=== PATIENT | male | born 1955 | race Caucasian/White ===

== ENCOUNTER → 2018-01-24 11:32 | Outpatient (CLI) | payer OTHER, SELFPAY ==
--- NOTE | 2018-01-24 11:37 | XR_ITS ---
XR shoulder LT min 2V HISTORY: ITS.REASON: LEFT SHOULDER PAIN ORDERING PHYSICIAN: Feliciano Scott MD PATIENT AGE: 62 years Comparison: None FINDINGS: There are mild osteoarthritic changes of the glenohumeral joint. The acromioclavicular joint has an unremarkable appearance. There is some mild hypertrophy along the undersurface of the acromium which may result in impingement symptomatology with mild subacromial stenosis There is deformity of the scapula which is suggestive of an old fracture. No lytic or blastic change. No acute fracture or dislocation. There is some sclerosis involving the proximal aspect of the humeral shaft nonspecific possibly related to an old bone infarction. There are some hypertrophic change along the humeral neck. IMPRESSION: 1. No acute finding. 2. Mild osteoarthritic change of the glenohumeral joint with hypertrophy along the undersurface of the acromion with mild subacromial stenosis. 3. Old scapular fracture
== END ==
PROVIDERS: PCP Family Medicine; Visit Provider Family Medicine
DX: M25.512 Pain in left shoulder (principal)
CPT/HCPCS: 73030

== ENCOUNTER 2018-02-20 17:00 | Outpatient (RCR) | payer OTHER, SELFPAY ==
--- NOTE | 2018-02-06 17:45 | HMH.PTOPEV ---
PT Outpatient Evaluation Rehab PT Outpatient Evaluation Start: 02/06/18 17:30 Freq: Status: Active Protocol: Document 02/06/18 17:33 KARELSAMUEL (Rec: 02/06/18 17:45 ROLY [id number]) Electronically Signed By Joe Avalos, PT 02/06/18 17:33 Outpatient Therapy Subjective History Subjective History This is the intial OP PT evaluation for Lambert Mancia. Pt is a 62 y/o male referred to PT for c/o L shoulder pain. 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 Pt reports he saw ortho MD had injection in shoulder. Pt rpeorts decreased pain s/p injxn. Chief Complaint Pain Symptom Type Ache Sharp Symptoms Relieved By Rest/Positioning Symptoms Aggravated By Physical Activity Lifting Prior Functional Limitations None Current Functional Limitations Reaching Lifting Sleeping Recreation Activity Symptom Description Intermittent Level of pain today (0-10) 3 Pain scale - at its best (0-10) 0 Pain scale - at its worst (0-10) 8 Shoulder/Elbow Eval Shoulder Objective Measurements Palpation Tenderness tenderness shoulder exam standard left Shoulder Palpation Findings Tenderness Shoulder Palpation Overall Comment TTP ant RTC insertion Shoulder ROM Bilateral full ROM shoulder exam standard bilateral Shoulder MMT Anterior Deltoid Strength Grade 5 Normal Shoulder Abduction Strength Grade 4 Good Shoulder External Rotation Strength 4 Good Grade Shoulder Internal Rotation Strength 5 Normal Grade Supraspinatus Strength Grade 4 Good Shoulder Special Tests impingement sign present shoulder exam left standard Shoulder Cross-Over Impingement Test Positive Left Shoulder Empty Can (Supraspinatus) Test Positive Left Shoulder Ash-Ariel Impingement Positive Left Test Shoulder Neer Impingement Test Positive Left Elbow Objective Measurements Outpatient Therapy Assessment Impairments Problems/Impairmments Palpation Tenderness Impaired Strength Impaired Lifting Impaired Recreational
== END 2018-02-20 17:05 | disposition home or self-care (01) ==
LOC: PT 17:00
PROVIDERS: Visit Provider Orthopaedic Surgery
DX: M25.512 Pain in left shoulder (principal)
CPT/HCPCS: 97110; 97163

== ENCOUNTER → 2018-07-26 14:51 | Outpatient (CLI) | payer OTHER, SELFPAY ==
[2018-07-26 17:17] LABS: Anion Gap 11.6 mEq/L (5-15); Blood Urea Nitrogen 22 mg/dL (7-18); Calcium 9.7 mg/dL (8.5-10.1); Carbon Dioxide 29 mmol/L (21.0-32.0); Chloride 105 mmol/L (98-107); Creatinine,Serum 1.06 mg/dL (0.70-1.30); Digoxin 0.56 ng/mL (0.90-2.00); Estimated Glomerular Filt Rate 70 ml/min (>60); GFR (African American) 85 ML/MIN (>60); Glucose 97 mg/dL (74-106); Potassium 4.6 mmoL/L (3.5-5.1); Sodium 141 mmol/L (136-145)
== END ==
PROVIDERS: PCP Family Medicine; Visit Provider Nurse Practitioner Family
DX: I48.0 Paroxysmal atrial fibrillation (principal); I10 Essential (primary) hypertension; G47.33 Obstructive sleep apnea (adult) (pediatric)
CPT/HCPCS: 36415; 80048; 80162

== ENCOUNTER → 2019-02-22 17:03 | Outpatient (CLI) | payer OTHER, SELFPAY ==
[2019-02-22 21:29] LABS: Alanine Aminotransferase 37 U/L (12-78); Albumin/Globulin Ratio 1.4 (1.1-1.8); Alkaline Phosphatase 54 U/L (46-116); Aspartate Amino Transferase 29 U/L (15-37); Bilirubin,Total 0.3 mg/dL (0.2-1.0); Blood Urea Nitrogen 21 mg/dL (7-18); Calcium 8.9 mg/dL (8.5-10.1); Carbon Dioxide 26 mmol/L (21.0-32.0); Chloride 102 mmol/L (98-107); Chol/HDL Ratio 4.2 (1-3.5); Cholesterol 188 mg/dL (140-200); Creatinine,Serum 1.04 mg/dL (0.70-1.30); Estimated Glomerular Filt Rate 72 ml/min (>60); Free T4 (Free Thyroxine) 0.92 ng/dl (0.76-1.46); GFR (African American) 87 ML/MIN (>60); Globulin 2.9 gm/dl (1.3-3.2); Glucose 73 mg/dL (74-106); HDL Cholesterol 45 mg/dL (27-67); LDL Cholesterol 96 mg/dL (0-130); Sodium 140 mmol/L (136-145); Thyroid Stimulating Hormone 4.84 uIU/ml (0.358-3.740); Total Protein,Serum 6.9 gm/dL (6.4-8.2); Triglycerides 233 mg/dL (30-200); Uric Acid 5.9 mg/dL (2.6-7.2); VLDL Cholesterol 47 mg/dL (0-40)
[2019-02-22 21:41] LABS: Creatinine,Urine Random 177 mg/dL (20-320)
[2019-02-24 10:19] LABS: Microalbumin, Urine 4.7 ug/mL (Not Estab.); Vitamin D 25 Hydroxy 90.7 ng/mL (30.0-100.0)
== END ==
PROVIDERS: Visit Provider Family Medicine
DX: M10.9 Gout, unspecified (principal); E03.9 Hypothyroidism, unspecified; E78.5 Hyperlipidemia, unspecified; I10 Essential (primary) hypertension; Z86.39 Personal history of other endocrine, nutritional and metabolic disease
CPT/HCPCS: 36415; 80053; 80061; 82043; 82570; 82652; 84439; 84443; 84550

== ENCOUNTER → 2019-06-04 08:55 | Outpatient (CLI) | payer OTHER, SELFPAY ==
--- NOTE | 2019-06-04 08:59 | XR_ITS ---
PROCEDURE: XR KNEE LT 4V CLINICAL INDICATION: left knee pain COMPARISON: No exams were available for comparison FINDINGS: No fracture or dislocation. No lytic or blastic change. There is normal mineralization. There are moderate to severe osteoarthritic changes of the medial compartment and moderate osteoarthritis of the patellofemoral joint. Small suprapatellar effusion is suspected. No acute fracture or dislocation. Other findings:None. IMPRESSION: Moderate to severe osteoarthritis of the medial compartment and patellofemoral joint Dictated by: Vincent Oconnor MD 06/04/2019 11:43 Electronically signed by Vincent Oconnor MD in [place] 06/04/2019 11:43
== END ==
PROVIDERS: PCP Family Medicine; Visit Provider Orthopaedic Surgery
DX: M25.562 Pain in left knee (principal)
CPT/HCPCS: 73564

== ENCOUNTER → 2019-08-24 09:16 | Outpatient (CLI) | payer OTHER, SELFPAY ==
--- NOTE | 2019-08-24 09:20 | XR_ITS ---
PROCEDURE: XR LUMBAR SPINE MIN 4V CLINICAL INDICATION: LOW BACK PAIN COMPARISON: CXR CHEST(2 VIEWS-NOT PORTABLE) from 12/30/2015 FINDINGS: There is normal alignment. Degenerative disc disease is present from L1-S1 most severe at L3-L4 and L4-5. There is 9 mm anterolisthesis of L4 on L5. There is sclerosis of the inferior aspect of the SI joints on both sides. Mild facet arthritic changes are present at L5-S1. No fracture or dislocation. IMPRESSION: Multilevel lumbar spondylosis as described above with arthritic changes of the SI joints Dictated by: Vincent Oconnor MD 08/24/2019 14:43 Electronically signed by Vincent Oconnor MD in [place] 08/24/2019 14:43
== END ==
PROVIDERS: PCP Family Medicine; Visit Provider Family Medicine
DX: M54.5 Low back pain (principal)
CPT/HCPCS: 72110

== ENCOUNTER → 2019-08-31 10:21 | Outpatient (CLI) | payer OTHER, SELFPAY ==
--- NOTE | 2019-08-31 10:30 | MR_ITS ---
PROCEDURE: MR LUMBAR SPINE WO CON CLINICAL INDICATION: ACUTE LEFT SIDED LBP Low back pain, left hip and leg pain numbness and tingling COMPARISON: XR LUMBAR SPINE MIN 4V from 08/24/2019 TECHNIQUE: Standard multiplanar multiecho sequences are performed without contrast. 3-D MIP and myelographic images are also rendered and reviewed FINDINGS: There is normal alignment. The spinal cord ends at the T12-L1 level. L1-L2: Unremarkable. L2-L3: Minimal bulging disc with mild facet and ligamentum hypertrophy L3-L4: Degenerate disc disease with mild bulging disc and facet and ligamentum hypertrophy with moderate bilateral foraminal narrowing L4-5: Degenerate disc disease with bulging disc along with moderate to severe facet and ligamentum hypertrophy and 6 mm anterolisthesis of L4. There is borderline canal stenosis at this level with moderate right and severe left foraminal narrowing. There is some impingement upon the exiting left L4 nerve root from the severe narrowing at the foramen. L5-S1: Mild degenerative disc disease with bulging disc slightly eccentric toward the left with moderate facet and ligamentum hypertrophy. There is mild left lateral recess narrowing and there is moderate bilateral foraminal narrowing. No extruded herniated disc is evident IMPRESSION: 1. L3-L4: Degenerate disc disease with mild bulging disc and facet and ligamentum hypertrophy with moderate bilateral foraminal narrowing 2. L4-5: Degenerate disc disease with bulging disc along with moderate to severe facet and ligamentum hypertrophy and 6 mm anterolisthesis of L4. There is borderline canal stenosis at this level with moderate right and severe left foraminal narrowing. There is some impingement upon the exiting left L4 nerve root from the severe narrowing at the foramen. 3. L5-S1: Mild degenerative disc disease with bulging disc slightly eccentric toward the left with moderate facet and ligamentum hypertrophy. There is mild left lateral recess narrowing and there is moderate bilateral foraminal narrowing. 4. No extruded herniated disc is evident Dictated by: Vincent Oconnor MD 09/01/2019 08:32 Electronically signed by Vincent Oconnor MD in [place] 09/01/2019 08:32
== END ==
PROVIDERS: PCP Family Medicine; Visit Provider Family Medicine
DX: M54.42 Lumbago with sciatica, left side (principal); M51.36 Other intervertebral disc degeneration, lumbar region; M47.816 Spondylosis without myelopathy or radiculopathy, lumbar region
CPT/HCPCS: 72148; 76376

== ENCOUNTER → 2019-09-20 09:48 | Outpatient (POV) | payer SELFPAY ==
[2019-09-20 09:54] VITALS: BP 142/88; PULSE 85; RESP 18; TEMP 36.9; O2SAT 98; BMI 37.3
--- NOTE | 2019-09-20 10:39 | HMH.PMCON ---
Assessment and Plan (1) Degenerative joint disease (DJD) of lumbar spine Current visit: Yes Status: Chronic Category: Medical Code(s): M47.816 - Spondylosis without myelopathy or radiculopathy, lumbar region (2) Lumbar radiculopathy Current visit: Yes Status: Chronic Category: Medical Code(s): M54.16 - Radiculopathy, lumbar region (3) Facet arthropathy Current visit: Yes Status: Chronic Category: Medical Code(s): M47.819 - Spondylosis without myelopathy or radiculopathy, site unspecified (4) Spinal stenosis Current visit: Yes Status: Chronic Category: Medical Code(s): M48.00 - Spinal stenosis, site unspecified - Assessment and plan all Dx Assessment and Plan for all problems:: Patient I did have a discussion concerning injective therapy. He does want to proceed with a lumbar epidural steroid injection at L4-L5. He has been educated regarding the injection. The patient and I specifically discussed risk factors for COVID19. These risks include, but are not limited to age greater than 60, heart or lung disease, diabetes, immunosuppression, and travel. We also discussed NSAIDs may worsen COVID19 infection or symptoms. Patient should not use NSAIDs to treat COVID19 signs or symptoms. Patient was also informed that any type of corticosteroid of any form (oral or injection) will decrease the patient's immune system response and may increase the likelihood of COVID19 infection and symptoms. The risks and benefits of the injection, he would like to proceed. We will also start the patient with physical therapy. We will start the patient on Zanaflex 2 mg 1 tablet p.o. twice daily until his injection. We will see him back in the clinic after his injection to reassess his symptoms. The patient is on Xarelto which is prescribed by Dr. Scott for atrial fibrillation. We will consult with Dr. Scott to see if he is able to hold his injective therapy for the injection. Patient has been instructed to contact the clinic if he has any concerns before his next appointment. Dr. Blanco has reviewed this note and agrees with this plan of care. This note was dictated using voice recognition software and make contain errors or omissions. HPI - Data of Consult Patient: new to practice Consult date: 09/20/19 Requesting Physician: Melani Ferreira APRN Primary Care Provider: Feliciano Scott MD - Consult Narrative Reason for consult: Low back pain, bilateral leg pain History of present illness: Mr. Mancia is a 63 year old male who presents today for consultation for low back pain with bilateral lower extremity pain. Patient says that he was laid off from his job in February 2019 and says that he is currently under his 's insurance. He says unfortunately, his is also recently laid off from the hospital. He says that they are in limbo and in the next couple months they will be able to get Medicare. For now, however, they are using over insurance through his 's insurance. Patient says that he has had the pain ongoing for many years, however, over the last 3 to 4 months he says that he has had excruciating pain. His pain is worse with standing and walking. He says any outdoor activity causes worsening pain. Patient says he is unable to do previous normal activities such as mowing his grass and edging. He says that the pain is so severe that he cannot tolerate any type of movement after trying to mow grass. He does rate his pain an 8 out of 10 today. He has not tried physical therapy. He says he has tried anti-inflammatories but has not gotten any relief. He does use ice and heat therapies. Ice does seem to give him more relief. CC: Melani Ferreira APRN [facility] History I have reviewed the patient's past medical history: Yes Medical History: Reports:: Asthma, Atrial Fibrillation, Hyperlipidemia, Hypertension Denies:: Cancer, Diabetes Mellitus Type 1, Diabetes Mellitus Type 2, MRSA *Have you ever receive
== END ==
PROVIDERS: PCP Family Medicine; Visit Provider Clinical Nurse Specialist Family Health
DX: M47.896 Other spondylosis, lumbar region (principal); M54.16 Radiculopathy, lumbar region; M48.00 Spinal stenosis, site unspecified
CPT/HCPCS: 99202

== ENCOUNTER 2019-10-12 12:50 | Day surgery (SDC) | payer MEDICAID, SELFPAY ==
[2019-10-12 13:07] VITALS: BP 134/80; PULSE 100; RESP 18; TEMP 36.9; O2SAT 95; BMI 39.5
[2019-10-12 13:28] VITALS: BP 140/78; PULSE 85; RESP 18; O2SAT 98
[2019-10-12 13:29] VITALS: BP 152/85; PULSE 78; RESP 18; O2SAT 98
--- NOTE | 2019-10-12 13:31 | HMH.PMPROC ---
- Procedure Date: 10/12/19 Time: 13:32 Anesthesiologist:: Sonny Blanco MD Complications:: None Pre-procedure Diagnosis:: Degenerative disc disease of lumbar spine with lumbar radiculopathy symptoms Post-procedure Diagnosis:: Same Indications for Procedure:: This patient is a pleasant 63-year-old white male who we are treating for low back pain with lumbar radiculopathy symptoms. We are planning on doing lumbar epidural steroid injection under fluoroscopy today. He is been off of his Xarelto. Most of his pain is in low back both hips and left leg. Procedure Details:: Lumbar epidural steroid injection under fluoroscopy Informed consent was obtained and the risk and benefits of the procedure was explained to the patient. The patient was taken to the procedure room. The patient was placed prone on the procedure table. The patient was prepped and draped in sterile fashion. C-arm fluoroscopy was used to view the lumbar spine. Skin and subcutaneous tissues were anesthetized using lidocaine. I placed an 18-gauge epidural needle and advanced into the L4-L5 interspace using fluoroscopic guidance and [id number] to air. After confirmation of needle placement in the epidural space with dye I injected 2 mL of lidocaine 1.5% with Depo-Medrol 80 mg. Patient tolerated the procedure well with no complications. Plan and Disposition:: We will follow-up with him in 2 weeks. Will reevaluate symptoms at that time.
[2019-10-12 13:55] VITALS: BP 138/80; PULSE 104; RESP 18; O2SAT 95
== END 2019-10-12 13:55 | disposition home or self-care (01) ==
LOC: SC.PAINP 12:52
PROVIDERS: PCP Family Medicine; Visit Provider Anesthesiology
DX: M51.16 Intervertebral disc disorders with radiculopathy, lumbar region (principal); I10 Essential (primary) hypertension; E78.5 Hyperlipidemia, unspecified; I48.91 Unspecified atrial fibrillation; M10.9 Gout, unspecified; G47.33 Obstructive sleep apnea (adult) (pediatric); Z79.899 Other long term (current) drug therapy
CPT/HCPCS: 62323; J1040; Q9966

== ENCOUNTER → 2019-11-01 12:59 | Outpatient (POV) | payer MEDICAID, SELFPAY ==
[2019-11-01 13:20] VITALS: BP 142/78; PULSE 85; RESP 18; TEMP 36.6; O2SAT 98; BMI 37.3
--- NOTE | 2019-11-01 13:20 | HMH.PAINSOAP ---
[facility] Pain Management SOAP Note Subjective:: Patient is a pleasant 64-year-old white male who presents today for follow-up after a lumbar epidural steroid injection. He has been treated for low back pain with lumbar radiculopathy symptoms. Patient says he is having pain in his low back and bilateral hips as well as his left leg. He says that he did get about 60% relief following his injection. He is continuing with physical therapy at this time. He rates his pain 4 out of 10. Patient is on Xarelto. He says that his pain is returning. He says it is worse as the evening goes on. He says he is fine in the morning time, however, by the evening his pain is severe. He was bridged with Lovenox at his last injection. Patient says he thought he was supposed to hold his Xarelto immediately after his visit and the day he was scheduled for the injection. Unfortunately, he held his Xarelto up until the injection. Patient I had a long discussion concerning the amount of time he does need to hold the Xarelto. Review of Systems General: No recent weight changes, no fever, no sleep disturbances Respiratory: No cough, no shortness of air, no recurring pulmonary infections Cardiovascular/peripheral vascular: No chest pain, no palpitations, no edema, no shortness of breath Gastrointestinal: No new onset incontinence, normal bowel movements reported Genitourinary: No new onset incontinence Musculoskeletal: Low back pain lateral hip pain, left leg pain Psychiatric: Normal mood/affect Neurological: [Denies weakness in extremities], [denies balance issues] Objective:: Physical exam General: Alert and oriented x3, no acute distress, pleasant and cooperative, [on room air] Lungs: Respirations even and unlabored, symmetrical chest expansion Eyes: PERRL Musculoskeletal: Flexion and extension of lumbar spine somewhat guarded secondary to pain, deep tendon reflexes normal, strength in upper and lower extremities [5/5], [abnormal gait noted] Neurological: Speech clear, furniture crater equal, no gross sensory deficit Assessment:: Degenerative disc disease lumbar spine with lumbar radiculopathy symptoms Plan:: We will schedule the patient for repeat lumbar epidural steroid injection at L4-L5. He did get relief with his initial injection, up to 60%. He was more functional. He is continue with physical therapy. He is not on any anti-inflammatories due to his anticoagulation therapy. He does understand he will need to hold his Xarelto. Patient has asked that his Lovenox be called into [facility] pharmacy in [place]. He will follow-up with us after his injection to reassess his symptoms. He has been instructed to contact clinic if he has any concerns before his next appointment. The patient and I specifically discussed risk factors for COVID19. These risks include, but are not limited to age greater than 60, heart or lung disease, diabetes, immunosuppression, and travel. We also discussed NSAIDs may worsen COVID19 infection or symptoms. Patient should not use NSAIDs to treat COVID19 signs or symptoms. Patient was also informed that any type of corticosteroid of any form (oral or injection) will decrease the patient's immune system response and may increase the likelihood of COVID19 infection [address] symptoms[address] Blanco has reviewed this note and agrees with this plan of care. This note was dictated using voice recognition software and make contain errors or omissions. [facility] History I have reviewed the patient's past medical history: Yes Medical History: Reports:: Asthma, Atrial Fibrillation, Hyperlipidemia, Hypertension Denies:: Cancer, Diabetes Mellitus Type 1, Diabetes Mellitus Type 2, MRSA, Seizures *Have you ever received a pneumonia vaccine?: No *Have you received a flu vaccine this season?: No Other Medical History: Reports: Arthritis Other Surgeries: Yes: Colonoscopy Amputation: No - *Social History Smoking Status: Never smoker Alcohol Intake: never
== END ==
PROVIDERS: PCP Family Medicine; Visit Provider Clinical Nurse Specialist Family Health
DX: M51.16 Intervertebral disc disorders with radiculopathy, lumbar region (principal)
CPT/HCPCS: 99212

== ENCOUNTER 2019-11-09 13:07 | Day surgery (SDC) | payer MEDICAID, SELFPAY ==
[2019-11-09 13:20] VITALS: BP 115/80; PULSE 98; RESP 18; TEMP 36.6; O2SAT 95; BMI 37.3
[2019-11-09 13:40] VITALS: BP 105/55; PULSE 93; RESP 18; O2SAT 99
[2019-11-09 13:44] VITALS: BP 110/74; PULSE 90; RESP 18; O2SAT 96
--- NOTE | 2019-11-09 13:50 | HMH.PMPROC ---
- Procedure Date: 11/09/19 Time: 13:50 Anesthesiologist:: Sonny Blanco MD Complications:: None Pre-procedure Diagnosis:: Degenerative disc disease of lumbar spine with lumbar radiculopathy symptoms Post-procedure Diagnosis:: Same Indications for Procedure:: This patient is a pleasant 64-year-old white male who we are treating for low back pain with lumbar radiculopathy symptoms. He did very well with his last lumbar epidural steroid injection. He was 60 to 70% better. He presents for repeat lumbar epidural steroid injection under fluoroscopy today. He has been off of his Xarelto since Tuesday. He has been bridged with Lovenox. He has been off the Lovenox for 24 hours. Procedure Details:: Lumbar epidural steroid injection under fluoroscopy Informed consent was obtained and the risk and benefits of the procedure was explained to the patient. The patient was taken to the procedure room. The patient was placed prone on the procedure table. The patient was prepped and draped in sterile fashion. C-arm fluoroscopy was used to view the lumbar spine. Skin and subcutaneous tissues were anesthetized using lidocaine. I placed an 18-gauge epidural needle and advanced into the L4-L5 interspace using fluoroscopic guidance and [id number] to air. After confirmation of needle placement in the epidural space with dye I injected 2 mL of lidocaine 1.5% with Depo-Medrol 80 mg. Patient tolerated the procedure well with no complications. Plan and Disposition:: We will follow-up with him in 2 weeks. Will reevaluate symptoms at that time. He is to restart his Xarelto.
[2019-11-09 13:52] VITALS: BP 108/65; PULSE 100; RESP 18; O2SAT 95
== END 2019-11-09 13:53 | disposition home or self-care (01) ==
LOC: SC.PAINP 13:07
PROVIDERS: PCP Family Medicine; Visit Provider Anesthesiology
DX: M51.16 Intervertebral disc disorders with radiculopathy, lumbar region (principal); I10 Essential (primary) hypertension; E03.9 Hypothyroidism, unspecified; I48.91 Unspecified atrial fibrillation; M10.9 Gout, unspecified; Z79.899 Other long term (current) drug therapy
CPT/HCPCS: 62323; J1040; Q9966

== ENCOUNTER 2019-11-27 08:00 | Outpatient (RCR) | payer MEDICAID, MEDICARE, OTHER, SELFPAY ==
--- NOTE | 2019-09-26 11:28 | HMH.PTOPEV ---
PT Outpatient Evaluation Rehab PT Outpatient Evaluation Start: 09/26/19 10:00 Freq: Status: Active Protocol: Document 09/26/19 11:08 GREG (Rec: 09/26/19 11:28 PHOROBERT [id number]) Electronically Signed By Gerson Taylor, PT 09/26/19 11:08 Outpatient Therapy Subjective History Subjective History Pt is 63 yowm who presents with c/o ~ 4 mo hx of LBP with intermittent symptoms in B LE to lateral calf distally. 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 He had MRI performed which shows DDD, L2/3-L5/S1 disc bulges, L4 on L5 ant listhesis 6 mm. He reports pain is worse with activity for any prolonged period of time, but much worse with yard work. PMH : A-fib, HTN, HL Chief Complaint Pain Symptom Type Ache,Sharp,Tingling,Shooting Symptoms Relieved By Rest/Positioning,Prescription Meds Symptoms Aggravated By Physical Activity Prior Functional Limitations None Current Functional Limitations Sleeping,Recreation Activity, Walking,Bending/Stooping Symptom Description Intermittent,Activity Dependent Level of pain today (0-10) 4 Pain scale - at its worst (0-10) 8 Lumbopelvic Eval Palapation tenderness left lumbar spinal tenderness Yes paraspinal tenderness Yes Lumbar/Sacral Palpation Findings Tenderness Lumbar/Sacral Palpation Overall Comment post L hip Accessory Movement L-spine Vertebrae Accessory Movements Central P/A [place] that Elicit Symptoms L4 bilateral L5 bilateral S1 bilateral Range of Motion Lumbar Spine Active Flexion Range of 0-60 Motion (degrees) Lumbar Spine Active Extension Range of 0-10 Motion (degrees) Left Lumbar Spine Lateral Flexion Active 0-10 Range of Motion (degrees) Right Lumbar Spine Lateral Flexion 0-10 Active Range of Motion (degrees) Manual Muscle Test Bilateral Knee Extension Strength Grade 5 Normal Knee Flexion Strength Grade 5 Normal Hip Flexion Strength Grade 5 Normal Hip Abduction Strength Grade 5 Normal Hip Adduction Strength Grade 5 Normal Extensor Hallucis Longus Strength Grade 5 Normal Ankle Dorsiflexion Strength Grade 5 Normal Gastronemius/Soleus Strengt
--- NOTE | 2019-10-30 08:28 | HMH.RHREAS ---
Rehab Reassessment Rehab OP Re-assessment Start: 10/30/19 08:21 Freq: Status: Active Protocol: Document 10/30/19 08:25 GREG (Rec: 10/30/19 08:28 GREG [id number]) Electronically Signed By Gerson Taylor, PT 10/30/19 08:25 Rehab Re-assessment Subjective Subjective Pt reports pain currently 3/10 , but much better overall. Objective Objective Notes Lumbar AROM: Flex= 0-65, Ext= 0-15, R SB= 0-15, L SB= 0-15 Pain is worse on the R Side of low back and intermittently in to post R SI area. Assessment Progress Assessment Progressing as Expected Assessment Notes Pt with improved pain, AROM, and more centralized symptoms. Pain remains worse after increased activity, but not as much as previous. Patient goals met ST,2,3,4 Goals Not Met LT,2,3,4,5 Revised Goals none Plan Plan Continue per initial POC. Frequency of Therapy 2 x/wk Duration of therapy 8 wks Time and Billing Re-Eval Time 15 Re-Eval Billing Units 1 PHYSICIAN CERTIFICATION: I certify the specified therapy services for Lambert Mancia are required, authorized, and reviewed every 30 days.
== END 2019-11-27 08:05 | disposition home or self-care (01) ==
LOC: PT 08:00
PROVIDERS: PCP Family Medicine; Visit Provider Clinical Nurse Specialist Family Health
DX: M54.5 Low back pain; M79.605 Pain in left leg; M79.604 Pain in right leg
CPT/HCPCS: 97010; 97012; 97014; 97110; 97140; 97163; 97164; G0283

== ENCOUNTER → 2019-11-29 15:07 | Outpatient (POV) | payer MEDICARE, MEDICAID, SELFPAY ==
[2019-11-29 15:26] VITALS: BP 141/81; PULSE 100; RESP 20; O2SAT 97; BMI 39.5
--- NOTE | 2019-11-29 15:37 | P.CONS_ITS ---
[facility] Pain Management SOAP Note Subjective:: Patient is a pleasant 64-year-old white male who presents today for follow-up after lumbar epidural steroid injection. He has been treated for chronic low back pain with lumbar radiculopathy symptoms. This is the patient's second lumbar epidural steroid injection. He states that he got about 80% relief with the injection. He says he is gotten more relief with this injection than the first injection. He rates his pain a 4 out of 10 today. Patient says he is doing well overall. Patient does take Xarelto and is bridged with his medication with Lovenox. Patient says he does not feel he needs to do further injective therapy at this time. Review of Systems General: No recent weight changes, no fever, no sleep disturbances Respiratory: No cough, no shortness of air, no recurring pulmonary infections Cardiovascular/peripheral vascular: No chest pain, no palpitations, no edema, no shortness of breath Gastrointestinal: No new onset incontinence, normal bowel movements reported Genitourinary: No new onset incontinence Musculoskeletal: Low back pain Psychiatric: Normal mood/affect Neurological: [Denies weakness in extremities], [denies balance issues] Objective:: Physical exam General: Alert and oriented x3, no acute distress, pleasant and cooperative, [on room air] Lungs: Respirations even and unlabored, symmetrical chest expansion Eyes: PERRL Musculoskeletal: Flexion and extension of lumbar spine somewhat guarded secondary to pain, deep tendon reflexes normal, strength in upper and lower extremities [5/5], normal gait noted Neurological: Speech clear, escort blind equal, no gross sensory deficit Assessment:: Degenerative disc disease lumbar spine with lumbar radiculopathy symptoms Plan:: Overall, the patient is doing well since his injection. He would like to postpone any further injective therapy until his pain begins to return. He has been encouraged to call the clinic if he has any concerns for his next appointment or if his pain returns. The patient and I specifically discussed risk factors for COVID19. These risks include, but are not limited to age greater than 60, heart or lung disease, diabetes, immunosuppression, and travel. We also discussed NSAIDs may worsen COVID19 infection or symptoms. Patient should not use NSAIDs to treat COVID19 signs or symptoms. Patient was also informed that any type of corticosteroid of any form (oral or injection) will decrease the patient's immune system response and may increase the likelihood of COVID19 infection and symptoms[address] Dr. Blanco has reviewed this note and agrees with this plan of care. This note was dictated using voice recognition software and make contain errors or omissions. [facility] History I have reviewed the patient's past medical history: Yes Medical History: Reports:: Asthma, Atrial Fibrillation, Hyperlipidemia, Hypertension Denies:: Cancer, Diabetes Mellitus Type 1, Diabetes Mellitus Type 2, MRSA, Seizures *Have you ever received a pneumonia vaccine?: No *Have you received a flu vaccine this season?: No Other Medical History: Reports: Arthritis Other Surgeries: Yes: Colonoscopy Amputation: No - *Social History Smoking Status: Never smoker Alcohol Intake: never Substance Use Type: denies use *Occupational Status:: other Housing: house *Travel in the last 8 weeks: None Family Hx:: Unable to obtain
== END ==
PROVIDERS: PCP Family Medicine; Visit Provider Clinical Nurse Specialist Family Health
DX: M51.16 Intervertebral disc disorders with radiculopathy, lumbar region (principal)
CPT/HCPCS: 99212

== ENCOUNTER → 2020-05-22 11:06 | Outpatient (POV) | payer MEDICARE, OTHER, SELFPAY ==
[2020-05-22 11:37] VITALS: BP 173/99; PULSE 97; RESP 20; TEMP 36.6; O2SAT 98; BMI 37.3
--- NOTE | 2020-05-22 12:28 | HMH.PAINSOAP ---
[facility] Pain Management SOAP Note Subjective:: She is a pleasant 64-year-old white male who presents today for follow-up. Patient is interested in a lumbar epidural steroid injection however he is awaiting a knee surgery. Patient I discussed that if he had any lumbar epidural steroid injections. He would not be able to move forward with the knee surgery until sometime after. Patient rates his pain today a 6 out of 10. Patient would like to pursue the knee surgery prior to any injective therapy. ROS General: no recent weight change, no fever, no sleep disturbances Respiratory: no cough, no shortness of air, no recurring pulmonary infections Cardiovascular/Peripheral Vascular: No chest pain, No palpitations, no edema, no shortness of breath. Gastrointestinal: no new onset incontinence, normal bowel movements reported Genitourinary: no new onset incontinence Musculoskeletal: Back pain, leg pain, knee pain Psychiatric: normal mood/ affect Neurological: [denies new onset weakness in extremities], [denies new onset balance issues] Objective:: Physical Exam General: Alert and oriented x3, no acute distress, pleasant and cooperative, [on room air] Lungs: Resps E/U, Symmetrical chest expansion, Eyes: PERRL Musculoskeletal: Flexion and extension of lumbar spine somewhat guarded secondary to pain, deep tendon reflexes normal, strength in upper and lower extremities [5/5], [abnormal gait noted] Neurological: speech clear, supervisor grinding equal, no gross sensory deficits Assessment:: Degenerative disc disease lumbar spine lumbar radiculopathy, degenerative osteoarthritis left knee Plan:: We we will hold off on injective therapy until after the patient's been evaluated for his knee replacement. Patient is agreeable. I will follow-up with him after this reassess his symptoms at that time he has been instructed to call the office if he has any issues prior to his next appointment. Dr. Blanco has reviewed this note and agrees with this plan of care. This note was dictated using voice recognition software and may contain errors or omissions [facility] History I have reviewed the patient's past medical history: Yes Medical History: Reports:: Asthma, Atrial Fibrillation, Hyperlipidemia, Hypertension Denies:: Cancer, Diabetes Mellitus Type 1, Diabetes Mellitus Type 2, MRSA, Seizures *Have you ever received a pneumonia vaccine?: Yes *Have you received a flu vaccine this season?: Yes Other Medical History: Reports: Arthritis Other Surgeries: Yes: Colonoscopy Amputation: No - *Social History Smoking Status: Never smoker Alcohol Intake: never Substance Use Type: denies use *Occupational Status:: other Housing: house *Travel in the last 8 weeks: None Family Hx:: Unable to obtain
== END ==
PROVIDERS: PCP Family Medicine; Visit Provider Clinical Nurse Specialist Family Health
DX: M51.16 Intervertebral disc disorders with radiculopathy, lumbar region (principal); M17.12 Unilateral primary osteoarthritis, left knee
CPT/HCPCS: 99212; G0463

== ENCOUNTER → 2020-06-06 09:12 | Outpatient (CLI) | payer MEDICARE, OTHER, SELFPAY ==
--- NOTE | 2020-06-06 09:16 | XR_ITS ---
PROCEDURE: XR KNEE LT 4V CLINICAL INDICATION: Left knee Chronic pain COMPARISON: No exams were available for comparison FINDINGS: There is marked joint space narrowing medially with bone on bone appearance mild eburnation of the medial tibial plateau. There is prominent spurring of the tibial spines. There is marked narrowing of the patellofemoral space mild spurring of the superior and inferior borders of the patella. There is no joint effusion. IMPRESSION: Severe osteoarthritic changes with [id number] medial joint space Dictated by: Dr. Rocky Oglesby MD 06/06/2020 11:54 Dr. Rocky Oglesby MD in [place] 06/06/2020 11:54
== END ==
PROVIDERS: PCP Family Medicine; Visit Provider Orthopaedic Surgery
DX: M25.562 Pain in left knee (principal)
CPT/HCPCS: 73564

== ENCOUNTER → 2020-06-12 11:30 | Outpatient (CLI) | payer MEDICARE, OTHER, SELFPAY ==
--- NOTE | 2020-06-12 11:40 | XR_ITS ---
PROCEDURE: XR CHEST 2V CLINICAL HISTORY: HX OF HIGH BLOOD PRESSURE, PRE-OPERATIVE COMPARISON: CR CXR CHEST(2 VIEWS-NOT PORTABLE) from 12/30/2015 FINDINGS: No focal consolidation, pleural effusions or pneumothorax. The cardiac size and central pulmonary vasculature within normal limits. Multilevel degenerative changes of the visualized thoracic spine with endplate sclerosis, loss of disc height and facet joint arthropathy is noted. IMPRESSION: No focal consolidation or pleural effusions. Dictated by: Mindi Woods 06/12/2020 16:59 Mindi Woods in [place] 06/12/2020 16:59
[2020-06-12 12:32] LABS: Creatinine,Urine Random 168 mg/dL (Not Estab.)
[2020-06-12 14:00] LABS: 25-OH Vitamin D, Total 58.5 ng/mL (30-100)
[2020-06-12 14:27] LABS: Alanine Aminotransferase 27 U/L (12-78); Albumin Level 4.5 g/dl (3.5-5.0); Albumin/Globulin Ratio 1.5 (1.1-1.8); Alkaline Phosphatase 68 U/L (38-126); Anion Gap 13.3 mEq/L (5-15); Aspartate Amino Transferase 35 U/L (17-59); Bilirubin,Total 0.5 mg/dl (0.2-1.3); Blood Urea Nitrogen 17 mg/dl (9-20); Calcium 9.5 mg/dl (8.4-10.2); Carbon Dioxide 25 mmol/L (22.0-30.0); Chloride 105 mmol/L (98-107); Chol/HDL Ratio 4.5 (1-3.5); Cholesterol 185 mg/dl (140-200); Estimated Glomerular Filt Rate 84 ml/min (>60); GFR (African American) 102 ML/MIN (>60); Globulin 3.1 g/dL (1.3-3.2); Glucose 99 mg/dl (74-100); HDL Cholesterol 41 mg/dl (40-60); Potassium 4.3 mmoL/L (3.5-5.1); Sodium 139 mmol/L (136-145); Total Protein,Serum 7.6 g/dl (6.3-8.2); Triglycerides 318 mg/dl (30-150); Uric Acid 6.1 mg/dl (3.5-8.5); VLDL Cholesterol 64 mg/dL (0-40)
[2020-06-12 14:43] LABS: Free T4 (Free Thyroxine) 1.17 ng/dl (0.78-2.19)
[2020-06-12 14:45] LABS: Direct LDL Cholesterol 86.67 mg/dL (100-129)
[2020-06-12 14:59] LABS: Thyroid Stimulating Hormone 2.75 uIU/mL (0.465-4.68)
== END ==
PROVIDERS: PCP Family Medicine; Visit Provider Orthopaedic Surgery
DX: Z01.818 Encounter for other preprocedural examination (principal); I10 Essential (primary) hypertension; E78.5 Hyperlipidemia, unspecified; E03.9 Hypothyroidism, unspecified; M10.9 Gout, unspecified; Z68.39 Body mass index [BMI] 39.0-39.9, adult
CPT/HCPCS: 36415; 71046; 80053; 80061; 82043; 82306; 82570; 84439; 84443; 84550

== ENCOUNTER → 2020-06-27 14:08 | Outpatient (CLI) | payer MEDICARE, OTHER, SELFPAY ==
[2020-06-27 14:13] LABS: Microscopic, Urine URINE MICROSCOPIC (MICROSCOPIC)
--- NOTE | 2020-06-27 14:23 | XR_ITS ---
PROCEDURE: XR KNEE LT 2V CLINICAL INDICATION: LT knee pre-op Preoperative evaluation for knee replacement COMPARISON: CR XR KNEE LT 4V from 06/04/2019 CR XR KNEE LT 4V from 06/06/2020 FINDINGS: Rounded metallic density is present along the posterior and anterior aspect of the knee as well as the lateral aspect of the knee joint for templating Severe osteoarthritic changes are present at the patellofemoral joint and medial compartment similar to the previous exam. Other findings:None. IMPRESSION: Severe osteoarthritis. Marker placed for templating. Dictated by: Vincent Oconnor MD 06/27/2020 17:30 Vincent Oconnor MD in [place] 06/27/2020 17:30
[2020-06-27 14:32] LABS: Appearance,Urine SL CLOUDY (Clear); Bilirubin,Urine Negative (Negative); Blood, Urine Negative (Negative); Glucose,Urine (UA) Negative (Negative); Ketones,Urine Negative (Negative); Leukocyte Esterase,Urine Negative (Negative); Nitrate,Urine Negative (Negative); Protein,Urine Negative (Negative); Urobilinogen,Urine 0.2 EU/dl (0.2)
[2020-06-27 14:43] LABS: Basophils # 0.1 K/mm3 (0-0.2); Basophils % 0.5 % (0.1-2.0); Eosinophils # 0.2 K/mm3 (0.0-0.4); Eosinophils % 1.2 % (0.1-12.0); Hematocrit 39.6 % (42.0-52.0); Hemoglobin 13.3 g/dL (14.1-18.0); Lymphocytes # 3.8 K/mm3 (0.7-4.5); Lymphocytes % 30.1 % (10-50); Mean Corpuscular HGB Conc 33.6 g/dL (31.8-35.4); Mean Corpuscular Hemoglobin 29.6 pg (27.0-31.2); Mean Corpuscular Volume 88.2 fl (80-94); Mean Platelet Volume 8.2 fl (7.4-10.4); Monocytes # 0.9 K/mm3 (0.1-1.0); Neutrophils # 7.7 K/mm3 (1.8-7.8); Neutrophils % 61.2 % (37.0-80.0); Platelet Count 210 K/mm3 (142-424); Red Blood Count 4.49 M/mm3 (4.60-6.20); Red Cell Distribution Width 14.5 % (11.5-17.5); White Blood Count 12.6 K/mm3 (4.8-10.8)
[2020-06-27 14:44] LABS: Bacteria,Urine 2+ /lpf; Mucus,Urine 1+ /lpf; WBC,Urine Occasional #/hpf (0-3)
[2020-06-27 15:06] LABS: Chloride 100 mmol/L (98-107); Potassium 4.5 mmoL/L (3.5-5.1); Sodium 134 mmol/L (136-145)
[2020-06-27 15:09] LABS: Anion Gap 14.5 mEq/L (5-15); Blood Urea Nitrogen 29 mg/dl (9-20); Carbon Dioxide 24 mmol/L (22.0-30.0); Estimated Glomerular Filt Rate 55 ml/min (>60); GFR (African American) 67 ML/MIN (>60); Glucose 90 mg/dl (74-100)
== END ==
PROVIDERS: Visit Provider Orthopaedic Surgery
DX: Z01.818 Encounter for other preprocedural examination (principal); I48.91 Unspecified atrial fibrillation; M25.562 Pain in left knee; R82.90 Unspecified abnormal findings in urine
CPT/HCPCS: 36415; 73560; 80048; 81001; 85025; 87086

== ENCOUNTER → 2020-07-07 10:15 | Outpatient (CLI) | payer MEDICARE, OTHER, SELFPAY | PROVIDERS: PCP Family Medicine; Visit Provider Orthopaedic Surgery | DX: Z01.818 Encounter for other preprocedural examination (principal); Z20.822 Contact with and (suspected) exposure to COVID-19; M25.562 Pain in left knee | CPT/HCPCS: 86850; U0003 ==

== ENCOUNTER 2020-07-08 12:04 | Observation (INO) | payer MEDICARE, OTHER, SELFPAY ==
--- NOTE | 2020-07-03 10:01 | SW/DCPLANNER ---
RECEIVED A CALL FROM DR GOMEZ'S OFFICE THIS PATIENT IS COMING IN ON TUESDAY FOR A TOTAL KNEE REPLACEMENT...I CALLED THIS PATIENT THIS MORNING AND LEFT A MESSAGE FOR HIM TO CALL ME IF HE HAS QUESTIONS IF NOT I WILL SEE HIM ON TUESDAY AFTER HIS SURGERY...
[2020-07-07 10:21] VITALS: BMI 37.3
[2020-07-08] VITALS (17 sets, daily range): BP systolic 90–125; BP diastolic 45–82; PULSE 69–95; RESP 12–18; TEMP 36.2–42.7; O2SAT 94–99
--- NOTE | 2020-07-08 12:42 | P.PN_ITS ---
[facility] Anesthesia Checklist - Structural Data Admitted From: Home Planned Operative Procedure/s: l tka Consent for Planned Operative Procedure(s) Verified: Yes - Additional verifications Anesthesia Reactions: No Hx Blood Transfusions: No Blood Transfusion Reaction: No - Airway Assessment C-Spine Mobility Assessed: Yes TMJ Mobility Assessed: Yes Dentition: Good Dentition - Neurological Assessment Level of Consciousness: Awake, Alert, Appropriate - Anesthesia Plan Anesthesia Risk discussed: Yes Anesthesia Plan: Verified ASA Class: III Anesthesia Type: MAC w/Spinal [facility] History I have reviewed the patient's past medical history: Yes Medical History: Reports:: Asthma, Atrial Fibrillation, Hyperlipidemia, Hypertension Denies:: Cancer, Diabetes Mellitus Type 1, Diabetes Mellitus Type 2, MRSA, Seizures *Have you ever received a pneumonia vaccine?: Yes *Have you received a flu vaccine this season?: Yes Other Medical History: Reports: Arthritis. Denies: Blood Transfusion Reaction Anesthesia experience/problems:: none Other Surgeries: Yes: Colonoscopy Amputation: No - *Social History Last grade of school completed: Some college Smoking Status: Never smoker Alcohol Intake: never Substance Use Type: denies use *Occupational Status:: other Housing: house *Travel in the last 8 weeks: None Family Hx:: Unable to obtain
--- NOTE | 2020-07-08 12:52 | SUR.OPER ---
5472 updated family at incision time
--- NOTE | 2020-07-08 12:55 | HMH.PHAINT ---
MEDICATION RECONCILIATION COMPLETED ON PATIENT USING EXTERNAL FILL HISTORY FROM PHARMACY AND LIST FROM CARDIOLOGY OFFICE. -NKECHI VOGELD
--- NOTE | 2020-07-08 14:04 | SUR.OPER ---
1200 updated family at this time
--- NOTE | 2020-07-08 14:04 | SUR.OPER ---
1300 updated family at this time
--- NOTE | 2020-07-08 14:04 | SUR.OPER ---
1400 updated family implants being placed
--- NOTE | 2020-07-08 14:31 | SUR.OPER ---
1430 family updated at closing, will speak with her in waiting room in 15-20min
--- NOTE | 2020-07-08 14:36 | XR_ITS ---
PROCEDURE: XR KNEE LT 2V CLINICAL INDICATION: left total knee replacement COMPARISON: CR XR KNEE LT 4V from 06/04/2019 CR XR KNEE LT 4V from 06/06/2020 CR XR KNEE LT 2V from 06/27/2020 FINDINGS: Status post total knee replacement with good alignment. No fracture or dislocation. No evidence of orthopedic complication. No lytic or blastic change. Soft tissue gas is present and anterior bandage. Air-fluid level noted in the infrapatellar region IMPRESSION: Status post total knee replacement with postoperative changes in good alignment Dictated by: Vincent Oconnor MD 07/08/2020 16:13 Vincent Oconnor MD in [place] 07/08/2020 16:13
--- NOTE | 2020-07-08 15:01 | HMH.ORTHHP ---
*Admission Date: 07/08/20 *Reason for consult:: s/p L TKA *History of present illness: 64yo M with severe degenerative joint disease of the L knee who has failed conservative therapy and underwent L TKA this afternoon. I began treating him in May 2019 and over the following year administered 2 intraarticular corticosteroid injections and 1 monovisc (hyaluronic acid) injections. Additionally he's tried OTC NSAIDs, tylenol, ice, activity modification. Xarelto was stopped 4-5 days ago and the patient was bridged with lovenox, which was stopped last night. L TKA was performed without complication under spinal anesthesia, EBL 150cc. 2g Ancef was given prior to incision and TXA given at incision/closure according to protocol. PMH = HTN, HL, GODFREY on CPAP, Afib, lumbar DDD PSH = Allg = NKDA Meds = Xarelto, metoprolol, allopurinol, digoxin, diltiazem, fenofibrate, indomethiacin, maxide, pravastatin, tizanidine SocHx = BMI 38; non-smoker. Retired. PCP: Dr. Scott Cardiology: Dr. Franco [facility] History I have reviewed the patient's past medical history: Yes Medical History: Reports:: Asthma, Atrial Fibrillation, Hyperlipidemia, Hypertension Denies:: Cancer, Diabetes Mellitus Type 1, Diabetes Mellitus Type 2, MRSA, Seizures *Have you ever received a pneumonia vaccine?: Yes *Have you received a flu vaccine this season?: Yes Other Medical History: Reports: Arthritis. Denies: Blood Transfusion Reaction Anesthesia experience/problems:: none Other Surgeries: Yes: Colonoscopy Amputation: No - *Social History Last grade of school completed: Some college Smoking Status: Never smoker Alcohol Intake: never Substance Use Type: denies use *Occupational Status:: other Housing: house *Travel in the last 8 weeks: None Family Hx:: Unable to obtain Review of Systems - Review of Systems Review of systems:: pertinent systems reviewed and negative unless documented below Meds Home Medications Medication Instructions Recorded Confirmed Type lisinopril 20 1 tab PO DAILY 03/21/17 07/08/20 History mg-hydrochlorothiazide 12.5 mg tablet Digoxin 125 mcg PO DAILY 10/12/19 07/08/20 History allopurinol 100 mg tablet 100 mg PO BID tab 02/27/20 07/08/20 History Metoprolol Succinate [Metoprolol 100 mg PO DAILY 07/03/20 07/08/20 History Succinate 100mg Tablet*] dilTIAZem HCl [Diltiazem 240mg 240 mg PO BID 07/03/20 07/08/20 History 24Hr ER Cap] Enoxaparin Sodium [Lovenox 120 mg SQ BID 07/08/20 07/08/20 History 120mg/0.8mL syringe] Fenofibrate Nanocrystallized 160 mg PO DAILY 07/08/20 07/08/20 History [Fenofibrate] Pravastatin Sodium [Pravachol 40mg 40 mg PO HS 07/08/20 07/08/20 History Tablet] Rivaroxaban [Xarelto 20mg Tablet*] 20 mg PO QPMWM 07/08/20 07/08/20 History Allergies Allergy/AdvReac Type Severity Reaction Status Date / Time No Known Allergies Allergy Verified 07/08/20 10:06 Exam Vital signs and Labs for Last 24 Hours: Temp Pulse Resp BP Pulse Ox 97.1 F L 95 H 18 125/82 95 07/08/20 10:13 07/08/20 10:13 07/08/20 10:13 07/08/20 10:13 07/08/20 10:13 I & O for Last 24 hours: Intake & Output 07/06/20 07/07/20 07/08/20 07/09/20 11:59 11:59 11:59 11:59 Weight 260 lb - Constitutional no acute distress, average body habitus - *Routine HEENT Exam Head: Present: normocephalic Eye: Present: EOMI ENT: Present: mucous membranes moist - *Routine Neck Exam Present: supple, trachea midline - *Routine Respiratory Exam Absent: respiratory distress, wheezes - *Routine Cardiovascular Exam Present: RRR - *Routine Abdominal Exam Present: soft. Absent: tenderness - *Routine Exam Comments: huber to gravity - *Routine Extremities Exam Comments: L knee dressing d/c/i, no strikethrough no motor/sensory below waist; spinal intact palpable pedal pulses LLE, foot pink/warm L calf soft, compressible - *Routine Skin Exam Present: warm - *
--- NOTE | 2020-07-08 15:08 | P.PN_ITS ---
[facility] Anesthesia Record Part I Intake, IV Amount: 2,700 Estimated blood loss (mL): 50 Urine output (mL): 400 Blood Pressure: 90/45 SaO2: 95 Pulse Rate: 81 Respiratory Rate: 12 Temperature: 98.5 F Patient is:: Awake, Stable Stable to PACU at:: 15:05
--- NOTE | 2020-07-08 15:09 | HMH.OPNOTE ---
Date of procedure: 07/08/20 Pre-op Diagnosis:: L knee degenerative joint disease (DJD) Post-op Diagnosis:: L knee degenerative joint disease (DJD) Procedure performed:: L total knee arthroplasty (TKA) Surgeon:: Alessia Martines MD Skilled Labor(s):: BONG Leavitt HYDROMETALLURGICAL ENGINEER:: Alex Jovana Anesthesia: MAC, spinal Estimated blood loss (mL): 150 Clinical Note:: 64yo M with severe degenerative joint disease of the L knee who has failed conservative therapy and underwent L TKA this afternoon. I began treating him in May 2019 and over the following year administered 2 intraarticular corticosteroid injections and 1 monovisc (hyaluronic acid) injections. Additionally he's tried OTC NSAIDs, tylenol, ice, activity modification. Xarelto was stopped 4-5 days ago and the patient was bridged with lovenox, which was stopped last night. The patient has exhausted conservative treatment for knee arthritis, consisting of: CSI, OSMAN injections, ice, NSAIDs, activity modification. The pain has become so severe that it is inhibiting his ability to perform ADLs and is adversely affecting his quality of life. I?ve discussed surgical options with the patient and have recommended total knee arthroplasty. We discussed at length the surgical technique and expected perioperative course, including length of hospitalization, need for postoperative physical therapy, use of anticoagulants, expected level of pain, and total length of recovery. I also explained the potential risks of surgery, including bleeding, infection, fracture, wound healing complications, need for revision surgery, continued pain post-operatively, DVT/PE, and risks of both general and regional anesthesia, including nerve damage, heart attack, stroke and even . The patient vocalized understanding of these risks and provided informed consent for the procedure. Operative findings:: Perez [employer] Nephew Journey II BCS Total Knee 6 femur 6 tibia 13mm poly 35mm x 9mm patella Operative note:: The patient was identified in pre-operative holding and the L leg signed by myself with marking pen. Consent was verified with the patient and all questions were answered. Pre-operative labs were confirmed to be within acceptable limits, and covid nasal swab negative. He confirms he has been using Bactroban twice daily for the past 5 days. Xarelto was stopped 4-5 days ago and he has bridged with lovenox per his mine manager, which was stopped last night. The patient was seen by anesthesia and taken to the OR, where spinal anesthetic was administered. He was placed supine on the operative table; 2g Ancef were infused intravenously and tranexamic acid given per protocol. Nonsterile tourniquet was placed on the upper L thigh and the leg was prepped and draped in the usual sterile fashion for knee arthroplasty. Timeout was performed, identifying the correct patient, correct procedure, and correct site. The procedure was begun by exsanguinating the L lower extremity with an Esmarch and inflating the tourniquet to 250 mmHg. A longitudinal incision was made down the anterior aspect of the L knee centered over the patella, extending from 2 fingerbreadths superior to the patella to the tibial tubercle. Subcutaneous tissue was incised down to the patellar retinaculum and limited medial and lateral flaps were raised. Medial parapatellar arthrotomy was then made and Bovie used to perform a moderate medial release. Next, the patella was everted and the knee flexed to around 100 degrees. Fat pad was excised and both medial and lateral menisci were excised as well. The ACL and PCL were then excised sharply. The joint was exposed with Megan retractors medially and laterally. Next the entry reamer was used to find and create the starting point for the distal femoral cutting guide. Through this entry point, the intramedullary rody component of the distal femoral cutting guide was inserted and the cutting guide pinned into place, set at 6 degrees valgus. Th
--- NOTE | 2020-07-08 15:43 | PC.NURSE ---
pt just arrived to the floor
[2020-07-08 16:01] LABS: Microscopic,Cath URINE MICROSCOPIC (MICROSCOPIC)
[2020-07-08 16:08] LABS: Appearance,Urine/Cath CLEAR (Clear); Bilirubin,Cath Negative (Negative); Blood, Urine/Cath Negative (Negative); Color,Urine/Cath STRAW (Yellow); Glucose,Urine/Cath (UA) Negative (Negative); Ketones,Urine/Cath Negative (Negative); Leukocyte Esterase,Cath Negative (Negative); Nitrate,Cath Negative (Negative); Protein,Urine/Cath Negative (Negative); Specific Gravity, Urine/Cath 1.015 (1.005-1.030); Urobilinogen,Cath 0.2 EU/dl (0.2)
[2020-07-08 16:20] LABS: Bacteria,Urine/Cath TRACE /lpf; RBC,Urine/Cath Occasional # /hpf (0-3)
[2020-07-08 16:59] LABS: Adenovirus,PCR Not Detected (NotDetected); Coronavirus 229E Not Detected (NotDetected); Coronavirus NL63 Not Detected (NotDetected); Coronovirus HKU1,PCR Not Detected (NotDetected)
[2020-07-08 17:00] LABS: Bordetella Pertussis Not Detected (NotDetected); Chlamydophila Pneumoniae, PCR Not Detected (NotDetected); Coronavirus 19, PCR Not Detected (NotDetected); Coronavirus OC43 Not Detected (NotDetected); Human Metapneumovirus Not Detected (NotDetected); Influenza A, PCR Not Detected (NotDetected); Influenza AH1, 2009 Not Detected (NotDetected); Influenza AH1, PCR Not Detected (NotDetected); Influenza AH3,PCR Not Detected (NotDetected); Influenza B, PCR Not Detected (NotDetected); Mycoplasma Pneumoniae, PCR Not Detected (NotDetected); Parainfluenza 1, PCR Not Detected (NotDetected); Parainfluenza 2, PCR Not Detected (NotDetected); Parainfluenza 3, PCR Not Detected (NotDetected); Parainfluenza 4, PCR Not Detected (NotDetected); Respiratory Syncytial Virus Not Detected (NotDetected); Rhinovirus/Enterovirus Not Detected (NotDetected)
[2020-07-09] VITALS (12 sets, daily range): BP systolic 91–130; BP diastolic 57–69; PULSE 79–100; RESP 18–21; TEMP 36.4–37.3; O2SAT 93–98
--- NOTE | 2020-07-09 03:28 | PC.NURSE ---
Pt A&O x4 and has not slept well this shift. Pt has c/o of 10/10 pain unrelieved by oxy (10). call center assistant Dr was paged, gave order for morphine 2mg q2h and toradol q6h,. Pt stated the morphine dulled the pain the most and he was able to fall asleep for a short period of time. Pt states his feet are still tingling but he has regained most of the feeling in them. John D/C this morning. pt has not has voided yet. Drsg on right leg CDI, polar pack in place. Lungs CTA, pt placed on room air, sats in the 90s. Bowel sounds x4, abd soft and nontender. IV patent, LR @ 75. VSS, call light in reach, no concerns at this time.
--- NOTE | 2020-07-09 06:36 | PC.NURSE ---
0600 UNABLE TO OBTAIN WEIGHT . PATIENT IN NON WEIGH BED AND UNABLE TO STAND ON HIS OWN AT THIS TIME
[2020-07-09 07:37] LABS: Basophils % 0.2 % (0.1-2.0); Eosinophils # 0.1 K/mm3 (0.0-0.4); Eosinophils % 0.6 % (0.1-12.0); Hematocrit 35.5 % (42.0-52.0); Hemoglobin 11.5 g/dL (14.1-18.0); Lymphocytes # 2.1 K/mm3 (0.7-4.5); Lymphocytes % 18.1 % (10-50); Mean Corpuscular HGB Conc 32.5 g/dL (31.8-35.4); Mean Corpuscular Hemoglobin 29.6 pg (27.0-31.2); Mean Corpuscular Volume 91.2 fl (80-94); Mean Platelet Volume 8.2 fl (7.4-10.4); Monocytes # 0.9 K/mm3 (0.1-1.0); Monocytes % 7.4 % (1.7-9.3); Neutrophils # 8.7 K/mm3 (1.8-7.8); Neutrophils % 73.8 % (37.0-80.0); Platelet Count 175 K/mm3 (142-424); Red Blood Count 3.89 M/mm3 (4.60-6.20); Red Cell Distribution Width 14.3 % (11.5-17.5); White Blood Count 11.8 K/mm3 (4.8-10.8)
[2020-07-09 07:41] LABS: Chloride 98 mmol/L (98-107); Sodium 131 mmol/L (136-145)
[2020-07-09 07:42] LABS: Potassium 3.9 mmoL/L (3.5-5.1)
[2020-07-09 07:45] LABS: Anion Gap 9.9 mEq/L (5-15); Blood Urea Nitrogen 13 mg/dl (9-20); Calcium 8.6 mg/dl (8.4-10.2); Carbon Dioxide 27 mmol/L (22.0-30.0); Creatinine Clearance Estimated 121 mL/min (50-200); Estimated Glomerular Filt Rate 84 ml/min (>60); GFR (African American) 102 ML/MIN (>60); Glucose 122 mg/dl (74-100)
--- NOTE | 2020-07-09 08:22 | HMH.ACPN2 ---
Internal Medicine - PN: Leila *Date: 07/09/20 *Time: 08:22 Interval history: Patient had some pain overnight which was relieved with Morphine. He just finished eating breakfast. Exam Vital signs and Labs for Last 24 Hours: Temp Pulse Resp BP Pulse Ox 98.9 F 91 H 18 120/67 93 L 07/09/20 03:56 07/09/20 03:56 07/09/20 03:56 07/09/20 03:56 07/09/20 03:56 Laboratory Results - last 24 hr 07/08/20 11:32: Urine Color Straw, Urine Appearance Clear, Urine pH 7.0, Ur Specific [place] 1.015, Urine Protein Negative, Urine Glucose (UA) Negative, Urine Ketones Negative, Urine Blood Negative, Urine Nitrate Negative, Urine Bilirubin Negative, Urine Urobilinogen 0.2, Ur Leukocyte Esterase Negative, Urine RBC Occasional, Urine WBC 3-5, Ur Squamous Epith Cells 3-5, Urine Bacteria Trace 07/08/20 16:50: Chlamy pneumoniae PCR Not detected, Adenovirus (PCR) Not detected, B. pertussis DNA (PCR) Not detected, Coronavirus OC43 (PCR) Not detected, Coronavirus HKU1 (PCR) Not detected, Coronavirus 229E (PCR) Not detected, SARS-CoV-2 (PCR) Not detected, Coronavirus NL63 (PCR) Not detected, Human Metapneumovir PCR Not detected, Influenza A (H1) PCR Not detected, Influ A (H1N1/09) PCR Not detected, Influenza A (H3) PCR Not detected, Influenza Type A (PCR) Not detected, Influenza Type B (PCR) Not detected, M. pneumoniae (PCR) Not detected, Parainfluenza 1 (PCR) Not detected, Parainfluenza 2 (PCR) Not detected, Parainfluenza 3 (PCR) Not detected, Parainfluenza 4 (PCR) Not detected, RSV (PCR) Not detected, Entero/Rhino (PCR) Not detected 07/09/20 07:20: WBC 11.8 H, RBC 3.89 L, Hgb 11.5 L, Hct 35.5 L, MCV 91.2, MCH 29.6, MCHC 32.5, RDW 14.3, Plt Count 175, MPV 8.2, Neut % (Auto) 73.8, Lymph % (Auto) 18.1, [place] % (Auto) 7.4, Eos % (Auto) 0.6, Baso % (Auto) 0.2, Neut # (Auto) 8.7 H, Lymph # (Auto) 2.1, [place] # (Auto) 0.9, Eos # (Auto) 0.1, Baso # (Auto) 0.0 07/09/20 07:20: Sodium 131 L, Potassium 3.9, Chloride 98, Carbon Dioxide 27, Anion Gap 9.9, BUN 13, Creatinine 0.90, Estimated Creat Clear 121, Estimated GFR 84, Est GFR ( Amer) 102, Glucose 122 H, Calcium 8.6 Vital Signs - 24 hr 07/08/20 10:13 07/08/20 15:05 07/08/20 15:09 Temperature 97.1 F L 98.5 F 98.5 F Pulse Rate 81 Pulse Rate [Apical] 83 Pulse Rate [Left Brachial] Pulse Rate [Right Brachial] 95 H Respiratory Rate 18 15 12 Blood Pressure 90/45 L Blood Pressure [Left Arm] 96/65 L Blood Pressure [Right Arm] 125/82 02 Sat by Pulse Oximetry 95 94 L 07/08/20 15:15 07/08/20 15:25 07/08/20 15:35 Temperature 97.7 F 97.7 F Pulse Rate Pulse Rate [Apical] 77 82 82 Pulse Rate [Left Brachial] Pulse Rate [Right Brachial] Respiratory Rate 15 15 15 Blood Pressure Blood Pressure [Left Arm] 100/50 L 105/49 L 106/50 L Blood Pressure [Right Arm] 02 Sat by Pulse Oximetry 96 95 95 07/08/20 15:45 07/08/20 16:00 07/08/20 16:15 Temperature 97.6 F 97.6 F 97.6 F Pulse Rate Pulse Rate [Apical] 82 Pulse Rate [Left Brachial] 82 75 69 Pulse Rate [Right Brachial] Respiratory Rate 16 16 16 Blood Pressure Blood Pressure [Left Arm] 91/57 L 106/53 L 111/59 L Blood Pressure [Right Arm] 02 Sat by Pulse Oximetry 97 98 98 07/08/20 16:30 07/08/20 16:45 07/08/20 17:15 Temperature 97.6 F 97.5 F L 97.5 F L Pulse Rate Pulse Rate [Apical] Pulse Rate [Left Brachial] 70 78 84 Pulse Rate [Right Brachial] Respiratory Rate 16 16 16 Blood Pressure Blood Pressure [Left Arm] 92/58 L 122/62 118/67 Blood Pressure [Right Arm] 02 Sat by Pulse Oximetry 97 97 97 07/08/20 17:45 07/08/20 18:45 07/08/20 19:45 Temperature 98.4 F 98.4 F 98.3 F Pulse Rate Pulse Rate [Apical] Pulse Rate [Left Brachial] 88 87 85 Pulse Rate [Right Brachial] Respiratory Rate 18 18 18 Blood Pressure Blood Pressure [Left Arm] 113/64 110/48 L 119/67 Blood Pressure [Right Arm] 02 Sat by Pulse Oximetry 98 99 99 07/08/20 20:00 07/09/20 00:00 07/09/20 03:56 Temperatu
--- NOTE | 2020-07-09 09:22 | HMH.ANESII ---
[facility] Anesthesia Record Part II Discharge Time: 15:35 Destination: floor PACU nurse assessment reviewed?: Yes Patient Condition:: Good Anesthesia Complications:: None Swallowing reflex intact?: Yes Cyanosis?: No Blood Pressure: 91/57 Pulse Rate: 82 Temperature: 97.6 F Mental Status: Alert & Oriented Pain level:: 0 Nausea and/or vomitting:: None Intake, IV Amount: 2,500
--- NOTE | 2020-07-09 10:08 | SW/DCPLANNER ---
RECEIVED REFERRAL ON THIS PATIENT FOR DME AND OUT PATIENT PT SERVICES.... I SPOKE WITH PATIENT AND HIS TODAY, THEY BOTH AGREED TO COME BACK TO THE OUT PATIENT DEPT FOR REHAB SERVICES AND PATIENT STATED HIS FAMILY HAS A WALKER AND HE WILL USE IT AND DOESN'T NEED ANY OTHER SERVICES AT THIS TIME....PATIENT DID COMPLAIN OF PAIN THIS MORNING WHEN I WAS IN THERE AND I GOT HIS NURSE TO COME IN AND CHECK TO SEE IF IT WAS TIME FOR HIS PAIN MEDS TO BE GIVEN... AT BEDSIDE..
--- NOTE | 2020-07-09 10:59 | HMH.ORTHPN ---
Subjective Date: 07/09/20 Time: 10:00 Principal diagnosis: Status post left TKA Interval history: The patient is doing well this morning, though he is in more pain than expected. Oxycodone alone has not been sufficient but the addition of IV morphine has been very helpful and he was able to get some rest last night. He is sitting in bedside chair icing his knee at the moment but has not participated in physical therapy yet. No fevers or chills, no chest pain or shortness of breath. PN: Obj Ex Vital signs: Temp Pulse Resp BP Pulse Ox 97.6 F 82 20 91/57 L 95 07/09/20 09:23 07/09/20 09:23 07/09/20 08:00 07/09/20 09:23 07/09/20 08:00 - Constitutional no acute distress - Routine HEENT Exam Head: Present: normocephalic Eye: Present: EOMI ENT: Present: mucous membranes moist - Routine Neck Exam Present: supple, trachea midline - Routine Respiratory Exam Absent: respiratory distress, wheezes - Routine Cardiovascular Exam Present: RRR - Routine Abdominal Exam Present: soft. Absent: tenderness - Routine Extremities Exam Comments: awake, alert, NAD L knee dressings c/d/i, no strikethrough palpable pedal pulses L foot, skin pink/warm +DF/PF/EHL LLE SILT distally LLE in all distributions L calf soft, compressible - Routine Skin Exam Present: warm - Routine Neurological Exam Present: alert, oriented X3, moving all extremities, normal tone, vision grossly intact, hearing grossly intact, normal speech. Absent: sensory deficit, motor deficit, altered mental status - Urinary Catheter Management John Cath placed during this visit: no Progress Note: A&P (1) Degenerative joint disease of knee, left Status: Acute (2) Atrial fibrillation with rapid ventricular response Status: Acute (3) Degenerative joint disease (DJD) of lumbar spine Status: Chronic (4) HLD (hyperlipidemia) Status: Chronic (5) HTN (hypertension) Status: Chronic (6) GODFREY (obstructive sleep apnea) Status: Chronic Assessment and Plan for All Diagnoses:: 64yo M POD 1 s/p L TKA -- WBAT LLE, PT/OT to eval -- elevate/ice LLE; [facility] device for cryotherapy -- SCDs BLE, encourage IS 10x/hr while awake -- on Xarelto at baseline for AFib; restarted today, will cover for DVT prophy as well -- pain control: tylenol, celebrex, oxycodone -- finish 24hr antibiotic prophy today -- continue home medications -- dispo planning: d/c home tomorrow with OPPT scheduled for tomorrow afternoon at 1pm
--- NOTE | 2020-07-09 11:47 | HMH.PTEV ---
Physical Therapy Evaluation Rehab PT IP Evaluation Start: 07/08/20 14:52 Freq: ONCE Status: Active Protocol: Document 07/09/20 10:35 PHORNE (Rec: 07/09/20 11:47 PHORNE [id number]) Subjective/History History History 64 yowm adm to [facility] for L TKA. He reports he lives with , no steps to enter the home and is independent with mobility prior to adm. Subjective Subjective Pt c/o pain in the L knee with WBing, but not unexpected levels. Rehab PT IP Eval Objective Appearance Patient Behavior Appropriate Patient Orientation Person,Place,Time Difficulty following instructions none Speech Pattern Clear Ambulation Patient Able to Ambulate Yes Ambulation Observation IP General Gait Pattern Observation Antalgic Gait,Decrease Weight Bear (L) Ambulation Distance (feet) 25 Ambulation Assistive Device Rolling Walker Ambulation Ability Contact Guard/Hand Hold Balance Ability to Arise Able, uses arms to help Sitting Balance Steady, safe Standing Balance Steady, wide stance Dynamic Sitting Balance Ability Good Dynamic Standing Balance Ability Good Transfers Bed Transfer Ability Contact Guard/Hand Hold Chair Transfer Ability Contact Guard/Hand Hold Sit to Stand Bed Transfer Ability Contact Guard/Hand Hold Sit to Stand Chair Transfer Ability Contact Guard/Hand Hold ROM All Extremities PT ROM Status WFL Abnormal ROM Comment L knee with expected post-op stiffness MMT All Extremities PT MMT WFL Abnormal MMT Grade L LE grossly 3/5 Rehab PT IP prob,goals,plan Problems Date of Evaluation: 07/09/20 PT IP Problems Bed Mobility,Transfers,Gait Rehab Potential Rehab Potential Good Plan PT Intervention Plan Bed Mobility,Transfers,Gait, Therapeutic Exercise PT Plan Frequency BID Duration LOS Discharge Goals Bed Transfer Ability Supervision/Stand by Sit to Stand Chair Transfer Ability Supervision/Stand by Ambulation Assistive Device Rolling Walker Ambulation Distance (feet) 40 Discharge Plan PT Discharge Plan Pt is appropriate to return home once medically stable with outpatient PT. G -code Required No Eval Complexity Eval Charge Codes 92707 - Moderate Complexity
[2020-07-10] VITALS: BP 104/53; PULSE 83; RESP 19; TEMP 37.1; O2SAT 95
--- NOTE | 2020-07-10 01:36 | PC.NURSE ---
Patient has consistently requested pain medication as ordered scheduled and PRN without relief. Have repositioned patient multiple times, added more ice to polar pack. Reviewed chart - patient has no other medication to be administered at this time with one exception of the Oxycodone which states in the label make give 2nd tablet if pain uncontrolled. Patient states pain is 9/10 with no relief from medication - spoke with Pitching Coach to discuss pain level and medication Oxycodone. Patient was given a 2nd tablet of Oxycodone per label instructions. Patient will continue to be monitored.
[2020-07-10 03:55] VITALS: BP 95/56; PULSE 69; RESP 18; TEMP 36.6; O2SAT 95
[2020-07-10 07:41] VITALS: BP 103/52; PULSE 75; RESP 18; TEMP 37.7; O2SAT 92
[2020-07-10 08:00] VITALS: PULSE 70
[2020-07-10 08:04] VITALS: PULSE 70
--- NOTE | 2020-07-10 08:39 | HMH.ACPN2 ---
Internal Medicine - PN: Subj *Date: 07/10/20 *Time: 08:39 Interval history: Patient states he had a better night last night, was able to sleep some, still having quite a bit of pain from time to time, was able to walk in [place] with PT yesterday. Exam Vital signs and Labs for Last 24 Hours: Temp Pulse Resp BP Pulse Ox 99.8 F H 70 18 103/52 L 92 L 07/10/20 07:41 07/10/20 08:04 07/10/20 07:41 07/10/20 07:41 07/10/20 07:41 Vital Signs - 24 hr 07/09/20 09:08 07/09/20 09:23 07/09/20 12:00 Temperature 97.6 F 98.2 F Pulse Rate 100 H 82 Pulse Rate [Left Brachial] 94 H Respiratory Rate 18 Blood Pressure 91/57 L Blood Pressure [Left Arm] 126/59 L 02 Sat by Pulse Oximetry 95 07/09/20 15:17 07/09/20 15:18 07/09/20 16:00 Temperature 98.1 F Pulse Rate Pulse Rate [Left Brachial] 93 H Respiratory Rate 18 18 21 Blood Pressure Blood Pressure [Left Arm] 130/60 02 Sat by Pulse Oximetry 98 07/09/20 16:23 07/09/20 19:45 07/09/20 20:00 Temperature 98.1 F Pulse Rate Pulse Rate [Left Brachial] 79 Respiratory Rate 18 20 Blood Pressure Blood Pressure [Left Arm] 107/64 L 02 Sat by Pulse Oximetry 93 L 97 07/10/20 00:00 07/10/20 03:55 07/10/20 07:41 Temperature 98.8 F 97.8 F 99.8 F H Pulse Rate Pulse Rate [Left Brachial] 83 69 75 Respiratory Rate 19 18 18 Blood Pressure Blood Pressure [Left Arm] 104/53 L 95/56 L 103/52 L 02 Sat by Pulse Oximetry 95 95 92 L 07/10/20 08:00 07/10/20 08:04 Temperature Pulse Rate 70 Pulse Rate [Left Brachial] 70 Respiratory Rate Blood Pressure Blood Pressure [Left Arm] 02 Sat by Pulse Oximetry I & O for Last 24 hours: Intake & Output 07/07/20 07/08/20 07/09/20 07/10/20 23:59 23:59 23:59 23:59 Intake Total 3755 / 4235 4420 / 4420 360 / 360 Output Total 1450 / 1450 Balance 3755 / 3410 2970 / 2970 360 / 360 Weight 260 lb - Constitutional no acute distress (conversant) Assessment and Plan (1) Degenerative joint disease of knee, left Status: Acute Category: Medical Code(s): M17.12 - Unilateral primary osteoarthritis, left knee (2) Atrial fibrillation with rapid ventricular response Status: Acute Category: Medical Code(s): I48.91 - Unspecified atrial fibrillation (3) Degenerative joint disease (DJD) of lumbar spine Status: Chronic Category: Medical Code(s): M47.816 - Spondylosis without myelopathy or radiculopathy, lumbar region (4) HLD (hyperlipidemia) Status: Chronic Qualifiers: Hyperlipidemia type: mixed hyperlipidemia Qualified Code(s): E78.2 - Mixed hyperlipidemia Category: Medical Code(s): E78.5 - Hyperlipidemia, unspecified (5) HTN (hypertension) Status: Chronic Qualifiers: Hypertension type: essential hypertension Qualified Code(s): I10 - Essential (primary) hypertension Category: Medical Code(s): I10 - Essential (primary) hypertension (6) GODFREY (obstructive sleep apnea) Status: Chronic Category: Medical Code(s): G47.33 - Obstructive sleep apnea (adult) (pediatric) - Assessment and plan all Dx Assessment and Plan for all problems:: POD #2, improving, OK to discharge from my standpoint.
--- NOTE | 2020-07-10 09:53 | HMH.ORTHPN ---
Subjective Date: 07/10/20 Time: 09:00 Principal diagnosis: Status post left TKA Interval history: The patient is doing well this morning, pain is much better today though he is still requiring some IV morphine for pain control. No fevers or chills reported overnight, no drainage from his dressing. No chest pain or shortness of breath, though he is slightly wheezy with exertion he says this is his normal baseline. He has been deemed medically appropriate for discharge by Dr. Scott. He is doing very well with physical therapy and I observed him walk from his bed out of his room and down the hallway with physical therapy. PN: Obj Ex Vital signs: Temp Pulse Resp BP Pulse Ox 99.8 F H 70 18 103/52 L 92 L 07/10/20 07:41 07/10/20 08:04 07/10/20 07:41 07/10/20 07:41 07/10/20 07:41 - Constitutional no acute distress - Routine HEENT Exam Head: Present: normocephalic Eye: Present: EOMI ENT: Present: mucous membranes moist - Routine Neck Exam Present: trachea midline - Routine Respiratory Exam Absent: respiratory distress - Routine Cardiovascular Exam Present: RRR - Routine Abdominal Exam Present: soft. Absent: tenderness - Routine Extremities Exam Comments: awake, alert, NAD L knee dressings c/d/i, no strikethrough palpable pedal pulses L foot, skin pink/warm +DF/PF/EHL LLE SILT distally LLE in all distributions L calf soft, compressible - Routine Skin Exam Present: warm - Routine Neurological Exam Present: alert, oriented X3, moving all extremities, normal tone, vision grossly intact, hearing grossly intact, normal speech. Absent: sensory deficit, motor deficit, altered mental status - Routine Psychiatric Exam Present: normal affect - Urinary Catheter Management John Cath placed during this visit: yes, but has since been removed by the nurse Urethral indwelling: No Insertion date: 07/08/20 Removal date: 07/09/20 Progress Note: A&P (1) Degenerative joint disease of knee, left Status: Acute (2) Atrial fibrillation with rapid ventricular response Status: Acute (3) Degenerative joint disease (DJD) of lumbar spine Status: Chronic (4) HLD (hyperlipidemia) Status: Chronic (5) HTN (hypertension) Status: Chronic (6) GODFREY (obstructive sleep apnea) Status: Chronic Assessment and Plan for All Diagnoses:: 64yo M POD 2 s/p L TKA -- WBAT LLE, PT/OT to continue -- elevate/ice LLE; [facility] device for cryotherapy -- SCDs BLE, encourage IS 10x/hr while awake -- on Xarelto at baseline for AFib; restarted yesterday, will cover for DVT prophy as well -- pain control: tylenol, celebrex, oxycodone -- continue home medications -- dispo planning: d/c home today with OPPT scheduled for this afternoon at 1pm -- follow-up appointment with me on 07/25/20 at 1pm
--- NOTE | 2020-07-10 09:59 | HMH.DCSUM ---
General - General Admission date:: 07/08/20 Discharge date: 07/10/20 HPI HPI: 64yo M with severe degenerative joint disease of the L knee who has failed conservative therapy and underwent L TKA this afternoon. I began treating him in May 2019 and over the following year administered 2 intraarticular corticosteroid injections and 1 monovisc (hyaluronic acid) injections. Additionally he's tried OTC NSAIDs, tylenol, ice, activity modification. Xarelto was stopped 4-5 days ago and the patient was bridged with lovenox, which was stopped last night. L TKA was performed without complication under spinal anesthesia, EBL 150cc. 2g Ancef was given prior to incision and TXA given at incision/closure according to protocol. PMH = HTN, HL, GODFREY on CPAP, Afib, lumbar DDD PSH = Allg = NKDA Meds = Xarelto, metoprolol, allopurinol, digoxin, diltiazem, fenofibrate, indomethiacin, maxide, pravastatin, tizanidine SocHx = BMI 38; non-smoker. Retired. PCP: Dr. Scott Cardiology: Dr. Franco Hospital Course Hospital Course: Post-operatively the patient was admitted to the med/surg floor for continuing post-operative care. IV antibiotics were continued for 24 hours for standard surgical prophylaxis. Spinal wore off the night of surgery and huber removed afterwards, on morning of POD 1. Xarelto restarted POD 1; this is a baseline medication for his atrial fibrillation and he will continue indefinitely, but will also help protect against DVT/PE. He began participating in PT/OT the morning of POD 1 and deemed safe for d/c home with OPPT. Vitals remained stable with no fevers/chills, no hypotension or tachycardia. He was medically and surgically appropriate for discharge home on POD 2, with outpatient PT scheduled that afternoon at 1pm. First dressing change will be done then, and he will be seen in the office on 07/25/20. He was provided with prescriptions for pain medication, in addition to written post-op discharge instructions. Objective Vital signs: Temp Pulse Resp BP Pulse Ox 99.8 F H 70 18 103/52 L 92 L 07/10/20 07:41 07/10/20 08:04 07/10/20 07:41 07/10/20 07:41 07/10/20 07:41 no acute distress - *Routine HEENT Exam Head: Present: normocephalic Eye: Present: EOMI ENT: Present: mucous membranes moist - *Routine Neck Exam Present: trachea midline - *Routine Respiratory Exam Absent: respiratory distress - *Routine Cardiovascular Exam Present: RRR - *Routine Abdominal Exam Present: soft. Absent: tenderness - *Routine Extremities Exam Comments: awake, alert, NAD L knee dressings c/d/i, no strikethrough palpable pedal pulses L foot, skin pink/warm +DF/PF/EHL LLE SILT distally LLE in all distributions L calf soft, compressible - *Routine Neurological Exam Present: alert, oriented X3, moving all extremities, normal tone, vision grossly intact, hearing grossly intact, normal speech. Absent: sensory deficit, motor deficit, altered mental status Results Completed studies during hospitalization [Text1]: Laboratory Results - last 72 hr 07/08/20 07/08/20 07/09/20 11:32 16:50 07:20 WBC 11.8 H RBC 3.89 L Hgb 11.5 L Hct 35.5 L MCV 91.2 MCH 29.6 MCHC 32.5 RDW 14.3 Plt Count 175 MPV 8.2 Neut % (Auto) 73.8 Lymph % (Auto) 18.1 [place] % (Auto) 7.4 Eos % (Auto) 0.6 Baso % (Auto) 0.2 Neut # (Auto) 8.7 H Lymph # (Auto) 2.1 [place] # (Auto) 0.9 Eos # (Auto) 0.1 Baso # (Auto) 0.0 Sodium Potassium Chloride Carbon Dioxide Anion Gap BUN Creatinine Estimated Creat Clear Estimated GFR Est GFR ( Amer) Glucose Calcium Urine Color Straw Urine Appearance Clear Urine pH 7.0 Ur Specific [place] 1.015 Urine Protein Negative Urine Glucose (UA) Negative Urine Ketones Negative Urine Blood Negative Urine Nitrate Negative Urine Bilirubin Negative Urine Urobilinogen 0.2 Ur
[2020-07-10 12:01] VITALS: RESP 16
--- NOTE | 2020-07-10 13:55 | PC.NURSE ---
THIS RN PROVIDED INFECTION CONTROL EDUCATION, MEDICATION EDUCATION AND DISCHARGE EDUCATION UPON DISCHARGE. NO NEW CONCERNS OR NEEDS AT DISCHARGE.
== END 2020-07-10 13:00 | disposition home or self-care (01) ==
LOC: 2ND 12:04
PROVIDERS: Admitting Provider Orthopaedic Surgery; PCP Family Medicine; Visit Provider Orthopaedic Surgery
PROC: (CPT 27447; principal; 2020-07-08 11:00)
DX: M17.12 Unilateral primary osteoarthritis, left knee (principal); I48.91 Unspecified atrial fibrillation; I10 Essential (primary) hypertension; E78.5 Hyperlipidemia, unspecified; Z79.01 Long term (current) use of anticoagulants; M47.816 Spondylosis without myelopathy or radiculopathy, lumbar region; G47.33 Obstructive sleep apnea (adult) (pediatric)
CPT/HCPCS: 27447; 36415; 73560; 80048; 81001; 85025; 87581; 87633; 87798; 96374; 97110; 97116; 97162; 97165; 97530; C1713; C1776; G0378

== ENCOUNTER → 2020-07-25 11:51 | Outpatient (CLI) | payer MEDICARE, OTHER, SELFPAY ==
--- NOTE | 2020-07-25 11:55 | XR_ITS ---
PROCEDURE: XR KNEE LT 3V CLINICAL INDICATION: s/p LT TKA COMPARISON: CR XR KNEE LT 4V from 06/04/2019 CR XR KNEE LT 4V from 06/06/2020 CR XR KNEE LT 2V from 06/27/2020 CR XR KNEE LT 2V from 07/08/2020 FINDINGS: Total left knee arthroplasty is noted. The prosthesis are in satisfactory alignment. No periprosthetic fractures. No evidence of periprosthetic lucency to suggest infection or loosening. Patellar osteotomy is noted. Bone density is normal. No suprapatellar joint effusion is noted. No significant soft tissue abnormality. IMPRESSION: Total left knee arthroplasty. No acute abnormality. Dictated by: Mindi Woods 07/25/2020 12:27 Mindi Woods in OV 07/25/2020 12:27
== END ==
PROVIDERS: PCP Family Medicine; Visit Provider Orthopaedic Surgery
DX: Z96.652 Presence of left artificial knee joint (principal); M25.562 Pain in left knee
CPT/HCPCS: 73562

== ENCOUNTER → 2020-09-03 14:22 | Outpatient (CLI) | payer MEDICARE, OTHER, SELFPAY ==
--- NOTE | 2020-09-03 14:27 | XR_ITS ---
PROCEDURE: XR KNEE LT 2V CLINICAL INDICATION: sp LT tka, sx 07/08/20 COMPARISON: CR XR KNEE LT 3V from 07/25/2020 FINDINGS: The total knee prosthesis is again noted. The femoral component is in good alignment apposition to the tibial plateau component. There is no evidence of loosening. Patellar osteotomy with a semiopaque plug undersurface of patella. The soft tissues are normal, there is no obvious joint effusion. IMPRESSION: Satisfactory appearance of total knee arthroplasty Dictated by: Dr. Rocky Oglesby MD 09/03/2020 15:00 Dr. Rocky Oglesby MD in [place] 09/03/2020 15:00
== END ==
PROVIDERS: PCP Family Medicine; Visit Provider Orthopaedic Surgery
DX: M25.562 Pain in left knee; Z96.652 Presence of left artificial knee joint
CPT/HCPCS: 73560

== ENCOUNTER → 2020-09-10 13:42 | Outpatient (CLI) | payer MEDICARE, OTHER, SELFPAY ==
--- NOTE | 2020-09-10 13:45 | XR_ITS ---
PROCEDURE: XR CHEST 2V CLINICAL HISTORY: dyspnea COMPARISON: CR CXR CHEST(2 VIEWS-NOT PORTABLE) from 12/30/2015 CR XR CHEST 2V from 06/12/2020 FINDINGS: The cardiomediastinal silhouette and pulmonary vascularity are within normal limits. The lungs are clear without infiltrates, suspicious nodules, or pleural effusions. No acute bony abnormalities. IMPRESSION: No acute findings. Dictated by: Vincent Oconnor MD 09/10/2020 14:17 Vincent Oconnor MD in [place] 09/10/2020 14:17
== END ==
PROVIDERS: PCP Family Medicine; Visit Provider Urology
DX: E78.2 Mixed hyperlipidemia (principal); I10 Essential (primary) hypertension; I48.0 Paroxysmal atrial fibrillation; R06.00 Dyspnea, unspecified
CPT/HCPCS: 71046

== ENCOUNTER → 2020-09-17 10:24 | Outpatient (CLI) | payer MEDICARE, OTHER, SELFPAY | PROVIDERS: PCP Family Medicine; Visit Provider Urology | DX: E78.5 Hyperlipidemia, unspecified (principal); G47.33 Obstructive sleep apnea (adult) (pediatric); I10 Essential (primary) hypertension; I48.91 Unspecified atrial fibrillation; R06.00 Dyspnea, unspecified | CPT/HCPCS: 93306 ==

== ENCOUNTER 2020-10-02 08:00 | Outpatient (RCR) | payer MEDICARE, OTHER, SELFPAY ==
--- NOTE | 2020-07-10 14:05 | HMH.PTOPEV ---
PT Outpatient Evaluation Rehab PT Outpatient Evaluation Start: 07/10/20 13:27 Freq: Status: Active Protocol: Document 07/10/20 13:27 AUGUSTINA (Rec: 07/10/20 14:05 AUGUSTINA [id number]) Electronically Signed By Gary Hammond, PT 07/10/20 13:27 Outpatient Therapy Subjective History Subjective History Pt presents s/p L TKA on . Pt reports severe L knee pain, pressure, and stiffness. Pt reports L knee pain is global, but improved w/ morphine every 2 hours. Pt reports R knee is not arthritic, no pain/problems in RLE. Chief Complaint Pain,Stiff,Swelling,Weakness Symptom Type Ache,Throb,Dull Symptoms Relieved By Rest/Positioning,Ice, Prescription Meds Symptoms Aggravated By Standing,Walking Prior Functional Limitations Standing,Walking Current Functional Limitations Housework,Standing,Squatting, Walking,Stairs Symptom Description Constant but Variable Level of pain today (0-10) 8 Pain scale - at its best (0-10) 7 Pain scale - at its worst (0-10) 10 Hip/Knee Eval Gait Observation General Gait Pattern Observation Antalgic Gait,Wide Based Gait Assistive Device Assistive Devices Rolling / Wheeled Walker, Wheelchair Palpation Tenderness left Knee Palpation Finding Tenderness Knee Palpation Overall Comment 3/4 globally MMT Hip Flexion Strength Grade 3 Fair Hip Abduction Strength Grade 3- Fair- Hip Adduction Strength Grade 3- Fair- Hip Extension Strength Grade 3- Fair- Knee Extension Strength Grade 3- Fair- Knee Flexion Strength Grade 3- Fair- ROM Knee Flexion Passive Range of Motion ( 5-85 degrees) Outpatient Therapy Assessment Impairments Problems/Impairmments Palpation Tenderness,Impaired Range of Motion,Impaired Strength,Impaired Gait Pattern ,Impaired Walking,Impaired Standing,Impaired Household Care,Impaired Stair Climbing, Impaired Squatting,Increased Edema,Lymphedema Present, Subjective C/O Pain,Impaired Self Care/Self Management Prognosis Rehab Potential Good Clinical Impression Consistent with Diagnosis Yes Short Term Goals Number of Weeks 4 Decreased Palpation Tenderness
--- NOTE | 2020-08-07 16:01 | HMH.RHREAS ---
Rehab Reassessment Rehab OP Re-assessment Start: 08/07/20 15:24 Freq: Status: Active Protocol: Document 08/07/20 15:24 AUGUSTINA (Rec: 08/07/20 16:00 [email or web address] [id number]) Electronically Signed By Gary Hammond, PT 08/07/20 15:24 Rehab Re-assessment Subjective Subjective PT REPORTS 2-3/10 R KNEE PAIN ON VAS, AND FEELS 50% BETTER OVERALL FUNCTIONALLY SINCE I EVAL Objective Objective Notes AROM: 0-109 R KNEE FLX, PROM: R KNEE FLX 0-115 MMT: R KNEE EXT 4/5, KNEE FLX 4/5, R HIP FLX 4-4+/5, HIP ABD ,ADD,EXT 4/5 TTP: MEDIAL JT LINE R KNEE 1-2 /4 GAIT: WFL W/SC AND VERBAL CUEING FOR R LE HEEL STIKE W/ TKE Assessment Progress Assessment Progressing as Expected Assessment Notes PT W/IMPROVED GAIT, STRENGTH, ROM, AND TTP Patient goals met STG'S 10/19 LTG'S 05/24 Goals Not Met LTG'S 12/24 Plan Plan PT TO CONT. W/SKILLED P.T. TO MAKE FURTHER IMPROVEMENTS IN R KNEE AROM/PROM, STRENGTH, TTP , AND GAIT TO ALLOW FOR OPTIMAL FUNCTION Frequency of Therapy 2-3X/WK Duration of therapy 6-8 Time and Billing Re-Eval Time 14 Re-Eval Billing Units 0 PHYSICIAN CERTIFICATION: I certify the specified therapy services for Lambert Mancia are required, authorized, and reviewed every 30 days.
--- NOTE | 2020-09-05 09:23 | HMH.RHREAS ---
Rehab Reassessment Rehab OP Re-assessment Start: 08/07/20 15:24 Freq: Status: Active Protocol: Document 09/05/20 09:18 AUGUSTINA (Rec: 09/05/20 09:22 AUGUSTINA [id number]) Electronically Signed By Gary Hammond, PT 09/05/20 09:18 Rehab Re-assessment Subjective Subjective PT REPORTS 0-2/10 R KNEE PAIN ON VAS, AND FEELS 60-65% BETTER OVERALL FUNCTIONALLY SINCE I EVAL Objective Objective Notes AROM: 0-112 R KNEE FLX, PROM: R KNEE FLX 0-121 MMT: R KNEE EXT 5/5, KNEE FLX 5/5, R HIP FLX 5/5, HIP ABD, ADD,EXT 4-4+/5 TTP: MEDIAL JT LINE R KNEE 0-1 /4 GAIT: lacking ~8 degrees of TKE in R knee w/heel strike, otherwise WFL on level terrain w/o AD Assessment Progress Assessment Progressing as Expected Assessment Notes improved gait, strength, ttp, and rom Patient goals met STG'S 10/19 LTG'S 11/24 Goals Not Met LTG'S 06/24 Plan Plan PT TO CONT. W/SKILLED P.T. TO MAKE FURTHER IMPROVEMENTS IN R KNEE AROM/PROM, STRENGTH, TTP , AND GAIT TO ALLOW FOR OPTIMAL FUNCTION Frequency of Therapy 2-3X/WK Duration of therapy 2-4WKS Time and Billing Re-Eval Time 15 Re-Eval Billing Units 0 PHYSICIAN CERTIFICATION: I certify the specified therapy services for Lambert Mancia are required, authorized, and reviewed every 30 days.
== END 2020-10-02 08:05 | disposition home or self-care (01) ==
LOC: PT 08:00
PROVIDERS: PCP Family Medicine; Visit Provider Orthopaedic Surgery
DX: M25.562 Pain in left knee (principal); Z96.652 Presence of left artificial knee joint
CPT/HCPCS: 97014; 97016; 97110; 97140; 97163; 97164; 97760; G0283

== ENCOUNTER → 2020-12-09 14:14 | Outpatient (CLI) | payer MEDICARE, OTHER, SELFPAY ==
--- NOTE | 2020-12-09 14:18 | XR_ITS ---
PROCEDURE: XR KNEE LT 2V CLINICAL INDICATION: sp LT TKA, sx 07/08/20, by Dr Martines COMPARISON: CR XR KNEE LT 2V from 06/27/2020 CR XR KNEE LT 2V from 07/08/2020 CR XR KNEE LT 3V from 07/25/2020 CR XR KNEE LT 2V from 09/03/2020 FINDINGS: No fracture or dislocation. No lytic or blastic change. There is normal mineralization. Good alignment status post total knee replacement. Developing calcification is noted along the upper pole of the patella suggesting heterotopic ossification. Diffuse increased density in the suprapatellar region consistent with postsurgical change. Other findings:None. IMPRESSION: Good alignment status post total knee replacement. Developing calcification noted over the upper pole of the patella suggesting developing heterotopic ossification Dictated by: Vincent Oconnor MD 12/09/2020 15:13 Vincetn Oconnor MD in [place] 12/09/2020 15:13
== END ==
PROVIDERS: PCP Family Medicine; Visit Provider Orthopaedic Surgery
DX: Z09 Encounter for follow-up examination after completed treatment for conditions other than malignant neoplasm (principal)
CPT/HCPCS: 73560

== ENCOUNTER → 2020-12-17 07:20 | Outpatient (CLI) | payer MEDICARE, OTHER, SELFPAY ==
[2020-12-17 07:44] LABS: Basophils % 0.5 % (0.1-2.0); Eosinophils # 0.2 K/mm3 (0.0-0.4); Eosinophils % 1.9 % (0.1-12.0); Hematocrit 39.3 % (42.0-52.0); Hemoglobin 12.8 g/dL (14.1-18.0); Lymphocytes # 2.5 K/mm3 (0.7-4.5); Mean Corpuscular HGB Conc 32.6 g/dL (31.8-35.4); Mean Corpuscular Hemoglobin 29.6 pg (27.0-31.2); Mean Corpuscular Volume 90.9 fl (80-94); Mean Platelet Volume 9.2 fl (7.4-10.4); Monocytes # 0.5 K/mm3 (0.1-1.0); Monocytes % 5.3 % (1.7-9.3); Neutrophils # 5.3 K/mm3 (1.8-7.8); Neutrophils % 62.2 % (37.0-80.0); Platelet Count 194 K/mm3 (142-424); Red Blood Count 4.32 M/mm3 (4.60-6.20); Red Cell Distribution Width 14.7 % (11.5-17.5); White Blood Count 8.4 K/mm3 (4.8-10.8)
[2020-12-17 09:12] LABS: Chloride 103 mmol/L (98-107); Sodium 139 mmol/L (136-145)
[2020-12-17 09:13] LABS: Potassium 4.4 mmoL/L (3.5-5.1)
[2020-12-17 09:15] LABS: Alanine Aminotransferase 30 U/L (12-78); Anion Gap 12.4 mEq/L (5-15); Aspartate Amino Transferase 41 U/L (17-59); Blood Urea Nitrogen 16 mg/dl (9-20); Carbon Dioxide 28 mmol/L (22.0-30.0); Cholesterol 156 mg/dl (140-200); Estimated Glomerular Filt Rate 112 ml/min (>60); GFR (African American) 136 ML/MIN (>60); Triglycerides 206 mg/dl (30-150); VLDL Cholesterol 41 mg/dL (0-40)
[2020-12-17 09:16] LABS: Albumin Level 3.9 g/dl (3.5-5.0); Albumin/Globulin Ratio 1.3 (1.1-1.8); Alkaline Phosphatase 67 U/L (38-126); Bilirubin,Total 0.3 mg/dl (0.2-1.3); Calcium 9.2 mg/dl (8.4-10.2); Chol/HDL Ratio 3.5 (1-3.5); Globulin 2.9 g/dL (1.3-3.2); Glucose 110 mg/dl (74-100); HDL Cholesterol 45 mg/dl (40-60); Total Protein,Serum 6.8 g/dl (6.3-8.2)
== END ==
PROVIDERS: Visit Provider Family Medicine
DX: I10 Essential (primary) hypertension (principal); E78.1 Pure hyperglyceridemia
CPT/HCPCS: 36415; 80053; 80061; 85025

== ENCOUNTER → 2021-01-27 08:52 | Outpatient (CLI) | payer MEDICARE, OTHER, SELFPAY ==
--- NOTE | 2021-01-27 08:56 | XR_ITS ---
PROCEDURE: XR KNEE LT 2V CLINICAL INDICATION: sp LT TKA, sx 07/08/20 COMPARISON: CR XR KNEE LT 2V from 07/08/2020 CR XR KNEE LT 3V from 07/25/2020 CR XR KNEE LT 2V from 09/03/2020 CR XR KNEE LT 2V from 12/09/2020 FINDINGS: No fracture or dislocation. No lytic or blastic change. There is normal mineralization. Status post total knee arthroplasty. There is good alignment. Lucency once again noted involving the anterior distal tibia with chronic fragmentation along the superior aspect of patella. Other findings:None. IMPRESSION: No change good alignment status post total knee arthroplasty Dictated by: Vincent Oconnor MD 01/28/2021 08:27 Vincent Oconnor MD in [place] 01/28/2021 08:27
== END ==
PROVIDERS: PCP Family Medicine; Visit Provider Orthopaedic Surgery
DX: M25.562 Pain in left knee; Z96.652 Presence of left artificial knee joint
CPT/HCPCS: 73560

== ENCOUNTER 2021-02-28 08:59 | Emergency (ER) | payer MEDICARE, OTHER, SELFPAY ==
--- NOTE | 2021-02-28 09:19 | HMH.EDUTC ---
[facility] Disposition Clinical Impression: Influenza B Disposition: Home, Self-Care Condition on Discharge: Good Instructions: Influenza, DI for Influenza -- Adult Additional Instructions: Drink plenty of fluids. Take tylenol or ibuprofen for pain or fever. Take the medications as directed. Follow up with your regular doctor. GO TO THE ER FOR ANY WORSENING SYMPTOMS Prescriptions: Oseltamivir Phosphate [Tamiflu 75mg Capsule] 75 mg PO BID #10 cap Transmission Status: Received by [facility] Azithromycin [Z-Rolf 250mg Tab*] 250 mg PO UD DOSE PK #6 tab Transmission Status: Received by [facility] Referrals: Feliciano Scott MD [Primary Care Provider] - Time of Disposition: 10:45 Medical Decision Making - Medical Records Medical records reviewed: No: I reviewed the patient's medical records. - Von Inquiry Pt receiving controlled substance: No Vital Signs: 02/28/21 09:30 02/28/21 10:12 Temperature 102.7 F H 102.6 F H Temperature Source Oral Pulse Rate 86 Pulse Rate [Left] 86 Respiratory Rate 20 20 Blood Pressure 190/75 H Blood Pressure [Right Arm] 190/75 H Blood Pressure Mean [Right Arm] 113 02 Sat by Pulse Oximetry 90 L - Lab Data Lab results reviewed: Yes: I reviewed the patient's lab results. Lab Results 02/28/21 09:39: Strep Scn [facility] Negative 02/28/21 09:39: Influenza Type A Ag Negative, Influenza Type B Ag Positive A Orders (Tests/Meds): ED MEDICATIONS Discontinued Medications Generic Name Dose Route Start Last Admin Trade Name Freq PRN Reason Stop Dose Admin Acetaminophen 975 mg 02/28/21 09:36 02/28/21 09:38 Acetaminophen 325mg Tab PO 02/28/21 09:37 975 mg ONCE ONE Administration ORDERS Category Date Time Status Strep Screen Confirmation Routine Micro 02/28/21 09:39 Received [facility] HPI - General Stated complaint: sore throat, cough, OSMAN, congestion Time Seen by Provider: 02/28/21 09:19 - History of Present Illness Provider Complaint: He states that for the past 2 days he has been having a worsening cough, sinus congestion, and chest congestion. His grand daughter was sick with a cough and congestion earlier this week. She got better and then he started feeling sick. He denies feeling short of breath. He has a productive cough with yellowish sputum. - Related Data Home Medications Medication Instructions Recorded Confirmed lisinopril 20 1 tab PO DAILY 03/21/17 01/27/21 mg-hydrochlorothiazide 12.5 mg tablet Digoxin 125 mcg PO DAILY 10/12/19 01/27/21 allopurinol 100 mg tablet 100 mg PO BID tab 02/27/20 01/27/21 Metoprolol Succinate [Metoprolol 100 mg PO DAILY 07/03/20 01/27/21 Succinate 100mg Tablet*] Fenofibrate Nanocrystallized 160 mg PO DAILY 07/08/20 01/27/21 [Fenofibrate] Pravastatin Sodium [Pravachol 40mg 40 mg PO HS 07/08/20 01/27/21 Tablet] diltiazem HCl 240 mg 240 mg PO BID cap 09/10/20 01/27/21 capsule,extended release 24 hr rivaroxaban 20 mg tablet 20 mg PO DAILY 09/10/20 01/27/21 Previous Rx's Medication Instructions Recorded Azithromycin [Z-Rolf 250mg Tab*] 250 mg PO UD DOSE PK #6 tab 02/28/21 Oseltamivir Phosphate [Tamiflu 75 mg PO BID #10 cap 02/28/21 75mg Capsule] Allergies Allergy/AdvReac Type Severity Reaction Status Date / Time No Known Allergies Allergy Verified 01/27/21 09:51 [facility] History - Hepatitis A Screen Attestation statement:: This patient has been screened for Hepatitis A risk factors. I have reviewed the patient's past medical history: Yes Medical History: Reports:: Asthma, Atrial Fibrillation, Hyperlipidemia, Hypertension Denies:: Cancer, Diabetes Mellitus Type 1, Diabetes Mellitus Type 2, MRSA, Seizures Other Medical History: Reports: Arthritis. Denies: Blood Transfusion Reaction Other Surgeries: Yes: Colonoscopy Amputation: No Fractures: No - Social History Smoking Status: Never smoker Alcohol Intake: melisa
--- NOTE | 2021-02-28 09:27 | XR_ITS ---
PROCEDURE INFORMATION: Exam: XR Chest Exam date and time: 02/28/2021 9:27 AM Age: 65 years old Clinical indication: Shortness of breath; Additional info: Cough, SOB TECHNIQUE: Imaging protocol: XR of the chest. Views: 2 views. COMPARISON: CR XR CHEST 2V 09/10/2020 1:49 PM FINDINGS: Lungs: Mild opacities in the right upper lobe and right base may represent atelectasis or pneumonia. Pleural spaces: Unremarkable. No pleural effusion. No pneumothorax. Heart/Mediastinum: Unremarkable. No cardiomegaly. Bones/joints: Unremarkable. IMPRESSION: Mild opacities in the right upper lobe and right base may represent atelectasis or pneumonia.
[2021-02-28 09:30] VITALS: BP 190/75; PULSE 86; RESP 20; TEMP 39.3; O2SAT 90; BMI 37.3
[2021-02-28 09:56] LABS: UTC Influenza A Antigen Negative (Negative)
[2021-02-28 09:57] LABS: UTC Influenza B Antigen Positive (Negative)
[2021-02-28 09:58] LABS: UTC Strep Screen (Rapid) Negative (Negative)
[2021-02-28 10:12] VITALS: BP 190/75; PULSE 86; RESP 20; TEMP 39.2
== END 2021-02-28 10:50 | disposition home or self-care (01) ==
PROVIDERS: Emergency Provider Nurse Practitioner Family; PCP Family Medicine
DX: J10.1 Influenza due to other identified influenza virus with other respiratory manifestations (principal); I48.0 Paroxysmal atrial fibrillation; I10 Essential (primary) hypertension; E78.5 Hyperlipidemia, unspecified; Z79.899 Other long term (current) drug therapy
CPT/HCPCS: 71046; 87804; 87880; 99202; C9803; G0463; U0003; U0005

== ENCOUNTER → 2021-04-08 08:40 | Outpatient (CLI) | payer MEDICARE, OTHER, SELFPAY ==
--- NOTE | 2021-04-08 08:44 | XR_ITS ---
FINAL REPORT CLINICAL HISTORY: sp LT TKA, sx 07/08/20 FINDINGS: LEFT KNEE 2 views of the left knee were obtained. There are postoperative changes from total joint prosthetic. There is some abnormal lucency deep to the anterior femoral component which is concerning for a fracture. There may be some mild cortical disruption of the posterior distal femoral metaphysis. The tibial component appears intact. IMPRESSION: Findings concerning for a healing fracture of the distal femoral metaphysis, deep to the femoral component of the prosthesis. Reviewed, Interpreted and Dictated by Humberto Zavala MD Transcribed by Khushi Stringer Authenticated by Humberto Zavala MD on 04/08/2021 11:33:27 AM [facility]
== END ==
PROVIDERS: PCP Family Medicine; Visit Provider Orthopaedic Surgery
DX: Z96.652 Presence of left artificial knee joint (principal); M25.562 Pain in left knee
CPT/HCPCS: 73560

== ENCOUNTER → 2021-07-09 08:27 | Outpatient (CLI) | payer MEDICARE, OTHER, SELFPAY ==
--- NOTE | 2021-07-09 08:38 | XR_ITS ---
FINAL REPORT CLINICAL HISTORY: LT TKA 07/08/20 COMPARISON: 04/08/2021 FINDINGS: LEFT KNEE Five views were obtained. There is no acute fracture or dislocation. The patient is status post total joint prosthesis. The patella is abnormally flattened and has an irregular appearance, similar to prior. There is lucency along the margin of the femoral component of the prosthesis which appears stable. IMPRESSION: Stable appearing findings. Reviewed, Interpreted and Dictated by Humberto Zavala MD Transcribed by Mandi Cleary Authenticated by Humberto Zavala MD on 07/09/2021 10:56:54 AM [facility]
== END ==
PROVIDERS: PCP Family Medicine; Visit Provider Physician Assistant Surgical
DX: M17.12 Unilateral primary osteoarthritis, left knee (principal)
CPT/HCPCS: 73564

== ENCOUNTER → 2021-12-10 08:59 | Outpatient (CLI) | payer MEDICARE, OTHER, SELFPAY ==
--- NOTE | 2021-12-10 09:06 | XR_ITS ---
FINAL REPORT CLINICAL HISTORY: left TKA COMPARISON: 07/09/2021 FINDINGS: LEFT KNEE 3 views of the left knee were obtained. There are post arthroplasty changes. There is no acute fracture. Suprapatellar calcifications are stable. A small joint effusion is mildly improved. IMPRESSION: No significant change. Reviewed, Interpreted and Dictated by Violet Randolph MD Transcribed by Khushi Stringer Authenticated and [facility]
== END ==
PROVIDERS: PCP Family Medicine; Visit Provider Orthopaedic Surgery
DX: Z96.652 Presence of left artificial knee joint (principal); M25.562 Pain in left knee
CPT/HCPCS: 73562

== ENCOUNTER 2023-07-06 16:24 | Outpatient (CLI) | payer MEDICARE, OTHER, SELFPAY ==
--- NOTE | 2023-07-06 16:28 | XR_ITS ---
PROCEDURE INFORMATION: Exam: XR Abdomen Exam date and time: 07/06/2023 4:30 PM Age: 67 years old Clinical indication: Abdominal pain; Additional info: Rlq abdominal pain TECHNIQUE: Imaging protocol: Radiologic exam of the abdomen. Views: 2 Views. Upright and supine views. COMPARISON: CR XR CHEST 2V 02/28/2021 9:46 AM FINDINGS: Gastrointestinal tract: Normal. No bowel dilation. Intraperitoneal space: Normal. No free air. Bones/joints: Unremarkable for age. IMPRESSION: No acute findings.
[2023-07-06 17:16] LABS: Basophils # 0.1 K/mm3 (0-0.2); Eosinophils # 0.2 K/mm3 (0.0-0.4); Eosinophils % 1.6 % (0.1-12.0); Hematocrit 44.6 % (42.0-52.0); Hemoglobin 14.8 g/dL (14.1-18.0); Lymphocytes # 3.7 K/mm3 (0.7-4.5); Mean Corpuscular HGB Conc 33.3 g/dL (31.8-35.4); Mean Corpuscular Hemoglobin 31.1 pg (27.0-31.2); Mean Corpuscular Volume 93.4 fl (80-94); Mean Platelet Volume 8.4 fl (7.4-10.4); Monocytes # 0.7 K/mm3 (0.1-1.0); Monocytes % 6.7 % (1.7-9.3); Neutrophils # 5.6 K/mm3 (1.8-7.8); Neutrophils % 54.6 % (37.0-80.0); Platelet Count 181 K/mm3 (142-424); Red Blood Count 4.78 M/mm3 (4.60-6.20); Red Cell Distribution Width 14.1 % (11.5-17.5); White Blood Count 10.3 K/mm3 (4.8-10.8)
[2023-07-06 18:23] LABS: Alanine Aminotransferase 42 U/L (12-78); Albumin Level 4.6 g/dl (3.5-5.0); Albumin/Globulin Ratio 1.5 (1.1-1.8); Alkaline Phosphatase 56 U/L (38-126); Aspartate Amino Transferase 49 U/L (17-59); Bilirubin,Total 0.5 mg/dl (0.2-1.3); Blood Urea Nitrogen 17 mg/dl (9-20); Calcium 10.1 mg/dl (8.4-10.2); Carbon Dioxide 25 mmol/L (22.0-30.0); Chloride 104 mmol/L (98-107); Estimated Glomerular Filt Rate 74 ml/min (>60); GFR (African American) 90 ML/MIN (>60); Glucose 90 mg/dl (74-100); Sodium 139 mmol/L (136-145); Total Protein,Serum 7.6 g/dl (6.3-8.2)
== END 2023-07-06 23:59 | disposition home or self-care (01) ==
LOC: LAB 16:25
PROVIDERS: PCP Family Medicine; Visit Provider Family Medicine
DX: R10.31 Right lower quadrant pain (principal)
CPT/HCPCS: 36415; 74019; 80053; 85025

== ENCOUNTER 2023-08-29 13:13 | Outpatient (CLI) | payer MEDICARE, SELFPAY ==
[2023-08-29 14:05] LABS: PHA INR Fingerstick 2.5 (0.9-1.1)
== END 2023-08-29 14:06 ==
PROVIDERS: PCP Family Medicine; Visit Provider Physician Assistant
DX: Z79.01 Long term (current) use of anticoagulants (principal); I48.0 Paroxysmal atrial fibrillation
CPT/HCPCS: 85610; 99211; G0463

== ENCOUNTER 2023-10-03 13:20 | Outpatient (CLI) | payer MEDICARE, SELFPAY ==
[2023-10-03 15:18] LABS: PHA INR Fingerstick 2.4 (0.9-1.1)
== END 2023-10-03 15:20 ==
LOC: ACC 13:21
PROVIDERS: PCP Family Medicine; Visit Provider Physician Assistant
DX: Z79.01 Long term (current) use of anticoagulants (principal); I48.0 Paroxysmal atrial fibrillation
CPT/HCPCS: 85610; 99211; G0463

== ENCOUNTER 2023-11-16 07:59 | Outpatient (CLI) | payer MEDICARE, SELFPAY ==
--- OUTSIDE RECORDS SUMMARY | 2023-11-16 08:02 | XMS_ITS | Patient Health Record ---
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 Name Role Phone Grisel Scott Primary Care Provider GRISEL SCOTT Unavailable Unavailable ALLERGIES No Known Allergies RESULTS Component Value Reference Range Notes Glucose (In-House) Reviewed date:05/30/2023 08:27:12 AM Interpretation: Glu 158 Performing Lab: Notes/Report: Glu 158 blood glucose 158 74 - 106 mg/dL Glycohemoglobin A1c (in hous e) Reviewed date:05/30/2023 08:27:12 AM Interpretation:A1C 6.2% Performing Lab: Notes/Report: A1C 6.2% glycohemoglobin 6.2% 5 - 6.5 % P-Vitamin D 25-Hydroxy Reviewed date:05/30/2023 08:27:12 AM Interpretation:41.5 Performing Lab: Notes/Report: Test performed by [facility] [employer] [address] [place] [address] , [address], [place] [address] Joaquín Little MD, [employer] CLIA: [id number] Vitamin D 25-Hydroxy 41.5 30.0-100.0 ng/mL Interpretation of Vitamin D 25 OH: < 20 ng/mL - Deficiency 20 - 29 ng/mL - Insufficiency 30 - 100 ng/mL - Sufficiency > 100 ng/mL - Super-therapeutic- toxicity may occur above this level. Clinical correlation required. Urinalysis - Inhouse Reviewed date:07/07/2023 11:29:38 AM Interpretation: Performing Lab: Notes/Report: Color/Clarity yellow/clear Leuk Neg Nitrite Neg Urobili 3.2 Protein Neg pH 7.5 Blood Neg Sp. Gr. 1.020 Ketone Neg Bili Neg Gluc Neg bacteria WBC RBC H-CBC Reviewed date:07/07/2023 11:42:06 AM Interpretation: Normal Performing Lab: Notes/Report: WBC 10.3 4.8-10.8 K/mm3 RBC 4.78 4.60-6.20 M/mm3 HGB 14.8 14.1-18.0 g/dL HCT 44.6 42.0-52.0 % MCV 93.4 80-94 fl MCH 31.1 27.0-31.2 pg MCHC 33.3 31.8-35.4 g/dL RDW 14.1 11.5-17.5 % PLT 181 142-424 K/mm3 MPV 8.4 7.4-10.4 fl NE% 54.6 37.0-80.0 % LY% 36.0 10-50 % MO% 6.7 1.7-9.3 % EO% 1.6 0.1-12.0 % BA% 1.0 0.1-2.0 % NE# 5.6 1.8-7.8 K/mm3 LY# 3.7 0.7-4.5 K/mm3 MO# 0.7 0.1-1.0 K/mm3 EO# 0.2 0.0-0.4 K/mm3 BA# 0.1 0-0.2 K/mm3 H-CMP Reviewed date:07/07/2023 11:42:31 AM Interpretation: Normal Performing Lab: Notes/Report: NA 139 136-145 mmol/L K 4.0 3.5-5.1 mmoL/L CL 104 98-107 mmol/L CO2 25 22.0-30.0 mmol/L GAP 14.0 5-15 mEq/L BUN 17 9-20 mg/dl CREATT 1.00 0.66-1.25 mg/dl GFRAA 90 >60 ML/MIN EGFR 74 >60 ml/min GLU 90 74-100 mg/dl CA 10.1 8.4-10.2 mg/dl BILIT 0.5 0.2-1.3 mg/dl AST 49 17-59 U/L ALT 42 12-78 U/L TP 7.6 6.3-8.2 g/dl ALB 4.6 3.5-5.0 g/dl GLOB 3.0 1.3-3.2 g/dL AGRATIO 1.5 1.1-1.8 ALP 56 38-126 U/L X ray : Abdomen-KUB with upr ight films Reviewed date:07/08/2023 10:42:08 AM Interpretation:Negative Performing Lab: Notes/Report: Negative P-Vitamin D 25-Hydroxy Reviewed date:11/25/2022 01:25:52 PM Interpretation:Vit D 25.7 Performing Lab: Notes/Report: Test performed by [facility] [address] [place] [address] , [address], [place] [address] Joaquín Little MD, [employer] CLIA: [id number] Vitamin D 25-Hydroxy 25.7 30.0-100.0 ng/mL Interpretation of Vitamin D 25 OH: < 20 ng/mL - Deficiency 20 - 29 ng/mL - Insufficiency 30 - 100 ng/mL - Sufficiency > 100 ng/mL - Super-therapeutic- toxicity may occur above this level. Clinical correlation required. P-Microalbumin/Creatinine, R andom Urine Sample Reviewed date:11/25/2022 01:25:52 PM Interpretation:Normal Performing Lab: Notes/Report: Test performed by [facility] [address] [place] [address] , [address], [place] [address] Joaquín Little MD, [employer] CLIA: [id number] Albumin/Creatinine Ratio, Urine 7 0-30 ug/mg Microalbumin, Urine, Random 0.9 Creatinine, Urine 127.7 P-PSA Reviewed date:11/25/2022 01:25:52 PM Interpretation:Normal Performing Lab: Notes/Report: Test performed by [facility] [address] [place] [address] , [address], [place] [address] Joaquín Little MD, [employer] CLIA: [id number] PSA 0.723 <4.001 ng/mL This test is performed by the [employer] ECLIA methodology. Values obtained with different assay methods or kits cannot be directly compared. Glycohemoglobin A1c (in hous e) Reviewed date:11/25/2022 01:25:52 PM Interpretation:A1C 5.7% Performing Lab: Notes/Report: A1C 5.7% glycohemoglobin 5.7% 5 - 6.5 % Glucose (In-House) Reviewed date:11/25/2022 01:25:52 PM Interpretation:Glu 145 Performing Lab: Notes/Report: Glu 145 blood glucose 145 74 - 106 mg/dL MEDICATIONS Medication SIG (Take, Route, Frequency, Duration) Notes Start Date End Date Status Pravastatin Sodium 40 MG 1 tab(s) orally once daily for 90 days Active Aspirin 81 81 MG 1 tablet Orally Once a day for 30 day(s) Active Fenofibrate 160 MG 1 tab(s) orally once daily for 90 days Active Metoprolol Succinate ER 100 MG 1 tab(s) orally once a day for 90 days Active Allopurinol 100 MG 1 tab(s) orally 2 ti mes a day for 90 days Active Lisinopril-hydroCHLOROthiaz jarvis 20-12.5 MG 1 tab(s) orally once daily for 90 days Active Cardizem CD 240 MG 1 cap(s) orally once a day for 90 days Active Digoxin 125 MCG 1 tab(s) orally once a day for 90 days Active Indomethacin 50 MG 1 cap(s) orally 3 ti mes a day as needed for 30 day(s) Active Vitamin D3 125 MCG (5000 UT) 2 tab orally once a day 12/07/2010 Acti ve CareTouch CPAP & BIPAP Hose 1 DIRECTED Active IMMUNIZATIONS Vaccine Route Administration Date Status Comme nts Tetanus Tdap-Adacel (over 7yrs) IM Intramuscular 11/10/2015 Administered Tetanus Tdap-Adacel (over 7yrs) Unknown 09/24/2018 Administered Shingrix Unknown 12/11/2019 Administered Prevnar (PCV20) IM Intramuscular 11/24/2022 Administered Prevnar (PCV13) Unknown 12/11/2019 Administered Fluzone Quad (6months&older) IM Intramuscular 11/22/2016 Administered Fluzone High Dose (65yr and older) Unknown 12/11/2019 Administered Fluzone High Dose (65yr and older) IM Intramuscular 12/16/2020 Administered Fluzone High Dose (65yr and older) IM Intramuscular 11/24/2022 Administered COVID 19 Gabi Unknown 05/24/2020 Administered SOCIAL HISTORY Sex Assigned At : Social History Observation Description Sex Assigned At Unknown PROBLEMS Problem Type ICD Code Onset Dates Problem Status W/U Status Risk SNOMED Code Notes Problem Vitamin D deficiency (E55.9) Active confirmed 38711653 Problem Essential hypertensi on (I10) Active confirmed 26784099 Problem Hypertriglyceridemia (E78.1) Active confirmed 186236711 Problem Lumbar facet arthropathy (M47.816) Active confirmed 640423822 Problem Lumbar degenerative disc disease (M51.36) Active confirmed 66183063 Problem Acquired hypothyroidism (E03.9) Active confirmed 485598642 Problem Bulging lumbar disc (M51.26) Active confirmed 651847880 Problem Gout, unspecified cause, unspecified chronicity, unspecified site (M10.9) Active confirmed 94212206 Problem History of vitamin D deficiency (Z86.39) Active confirmed 309344042 Problem Atrial fibrillation, unspecified type (I48.91) Active confirmed 39734001 Problem Primary osteoarthrit is of left knee (M17.12) Active confirmed 26008186821881 9 Problem Hyperlipidemia, unspecified hyperlipidemia type (E78.5) Active confirmed 17314678 Problem Acute left-sided low back pain with left-sided sciatica (M54.42) Active confirmed 108368505 Problem IFG (impaired fastin g glucose) (R73.01) Active confirmed 211021754 Problem Arthritis of left kn ee (M17.12) Active confirmed [id number] VITAL SIGNS Heart Rate 59 /min 07/06/2023 Blood pressure diastolic 70 mm Hg 07/06/2023 Height 69.75 in 07/06/2023 Blood pressure systolic 128 mm Hg 07/06/2023 Weight 274.8 lbs 07/06/2023 BMI 39.71 kg/m2 07/06/2023 Encounters Encounter Location Date Provider Diagnosis [facility] [address] [place], [place] [id number] 11/25/2022 Grisel Demarest [facility] [address] [place], [place] [id number] 11/26/2022 Grisel Demarest Gout, unspecified ca use, unspecified chronicity, unspecified site M10.9 [facility] [address] [place], [place] [id number] 05/30/2023 Grisel Demarest [facility] [address] [place], [place] [id number] 07/22/2023 Grisel Demarest Gout, unspecified ca use, unspecified chronicity, unspecified site M10.9 [facility] [address] [address] [place] [id number] 11/24/2022 Grisel Demarest Essential hypertensi on I10 ; Hyperlipidemia, unspecified hyperlipidemia type E78.5 ; Vitamin D deficiency E55.9 ; IFG (impaired fasting glucose) R73.01 ; Prostate cancer screening Z12.5 ; Encounter for immunization Z23 ; Gout, unspecified cause, unspecified chronicity, unspecified site M10.9 and Atrial fibrillation, unspecified type I48.91 [facility] [address] [address] [place] [id number] 07/06/2023 Grisel Demarest RLQ abdominal pain R 10.31 [facility] [address] [address] [place] [id number] 05/24/2023 Grisel Demarest Essential hypertensi on I10 ; Hyperlipidemia, unspecified hyperlipidemia type E78.5 ; Hypertriglyceridemia E78.1 ; Gout, unspecified cause, unspecified chronicity, unspecified site M10.9 ; Atrial fibrillation, unspecified type I48.91 ; Vitamin D deficiency E55.9 and IFG (impaired fasting glucose) R73.01 ASSESSMENTS Encounter Date Diagnosis Assessment Notes Treatment Notes Treatment Clinical Notes 07/06/2023 RLQ abdominal pain ( ICD-10 - R10.31) 07/22/2023 Gout, unspecified ca use, unspecified chronicity, unspecified site (ICD-10 - M10.9) 05/24/2023 Essential hypertensi on (ICD-10 - I10) 05/24/2023 Hyperlipidemia, unspecified hyperlipidemia type (ICD-10 - E78.5) 11/24/2022 Essential hypertensi on (ICD-10 - I10) 11/26/2022 Gout, unspecified ca use, unspecified chronicity, unspecified site (ICD-10 - M10.9) 11/24/2022 Hyperlipidemia, unspecified hyperlipidemia type (ICD-10 - E78.5) 11/24/2022 Vitamin D deficiency (ICD-10 - E55.9) 05/24/2023 Hypertriglyceridemia (ICD-10 - E78.1) 05/24/2023 Gout, unspecified ca use, unspecified chronicity, unspecified site (ICD-10 - M10.9) 11/24/2022 IFG (impaired fastin g glucose) (ICD-10 - R73.01) 11/24/2022 Prostate cancer scre ening (ICD-10 - Z12.5) 05/24/2023 Atrial fibrillation, unspecified type (ICD-10 - I48.91) 05/24/2023 Vitamin D deficiency (ICD-10 - E55.9) 11/24/2022 Encounter for immuni zation (ICD-10 - Z23) 11/24/2022 Gout, unspecified ca use, unspecified chronicity, unspecified site (ICD-10 - M10.9) 05/24/2023 IFG (impaired fastin g glucose) (ICD-10 - R73.01) 11/24/2022 Atrial fibrillation, unspecified type (ICD-10 - I48.91) Patient states he can not afford any of the NOAC drugs. Discussed using Coumadin instead. He declines and wants to keep taking Aspirin at this time PLAN OF TREATMENT Next Appt Details Provider Name:Grisel Reid , 11/22/2023 09:00:00 AM, [address] [facility], [address], [place], [place], [id number], Insurance Providers Payer Name Payer Address Payer Phone Subscriber Number Group Number Insured Name Patient Relationship to Insured Coverage Start Date Coverage End Date MEDICARE PART B [address] [address] Dayron celaya [place] [id number] [phone] [id number] Lambert Mancia Self - patient is the insured [employer] INSURANCE [address] [place] [id number] [phone] [id number] Lambert Mancia Self - patient is the insured MEDICATIONS ADMINISTERED Medication Instructions Date of Administration Dosage Notes Dexamethasone 05/10/2006 1 mL Dexamethasone 07/22/2006 8 mg Dexamethasone 08/31/2014 1 mL MEDICAL (GENERAL) HISTORY Medical History History ICD Code Hypertension Hyperlipidemia Gout Rt Shoulder Pain- treated by Dr. Scherer Vitamin D deficiency Colon polyps Atrial fibrillation, Dx: 2016 Impaired fasting glucose Surgical History Surgery Date(Month/Year) Colonoscopy 2007, 2016 CardioVersion x 2 2016 Total Lt Knee Replacement 06/2020 Hospitalization History Reason Date(Month/Year) [facility] 12/2015
--- OUTSIDE RECORDS SUMMARY | 2023-11-16 08:02 | XMS_ITS ---
Author Organization [facility] Address [address] [place] [id number] Care Team Providers Care Steel Sampler Name Role Phone Grisel Scott Primary Care Provider GRISEL SCOTT Unavailable Unavailable ALLERGIES No Known Allergies RESULTS Component Value Reference Range Notes Urinalysis - Inhouse Reviewed date:07/07/2023 11:29:38 AM [...] 10:42:08 AM Interpretation:Negative Performing Lab: Notes/Report: Negative REASON FOR VISIT lower right side stomach pain MEDICATIONS Medication SIG (Take, Route, Frequency, Duration) Notes Start Date End Date Status Pravastatin Sodium 40 MG 1 tab(s) orally once daily for 90 days Active Fenofibrate 160 MG 1 tab(s) orally once daily for 90 days Active Lisinopril-hydroCHLOROthiaz jarvis 20-12.5 MG 1 tab(s) orally once daily for 90 days Active Metoprolol Succinate ER 100 MG 1 tab(s) orally once a day for 90 days Active Cardizem CD 240 MG 1 cap(s) orally once a day for 90 days Active Allopurinol 100 MG 1 tab(s) orally 2 ti mes a day for 90 days Active Indomethacin 50 MG 1 cap(s) orally 3 ti mes a day as needed Active Digoxin 125 MCG 1 tab(s) orally once a day for 90 days Active Vitamin D3 125 MCG (5000 UT) 2 tab orally once a day 12/07/2010 Acti ve CareTouch CPAP & BIPAP Hose 1 DIRECTED Active Aspirin 81 81 MG 1 tablet Orally Once a day for 30 day(s) Active VITAL SIGNS Blood pressure systolic 128 mm Hg 07/06/19 Blood pressure diastolic 70 mm Hg 024 Heart Rate 59 /min 07/06/2023 Height 69.75 in 07/06/2023 Weight 274.8 lbs 07/06/2023 BMI 39.71 kg/m2 07/06/2023 Encounters Encounter Location Date Provider Diagnosis [facility] [address] [facility] 36 [facility] [address] [place] [phone] 07/06/2023 Grisel Scott RLQ abdominal pain R10.31 ASSESSMENTS Encounter Date Diagnosis Assessment Notes Treatment Notes Treatment Clinical Notes 07/06/2023 RLQ abdominal pain (ICD-10 - R10.31) PLAN OF TREATMENT Next Appt Details Follow Up: via phone to repo rt test results, Reason: Provider Name:Grisel Reid ry, 11/22/2023 09:00:00 AM, [address] [facility] 36 [facility], [address], [place], [phone], Progress Notes * Examination Category Sub-Category Detail Notes Gastroenterology Oral cavity: normal Sclera: anicteric Heart sounds: regular, normal S1 S 2 Lungs: clear, no rales or w heezes Abdomen: BS present, soft, mi nimal RLQ and right flank tenderness to palpation, no guarding or rigidity, no masses felt General Appearance: pleasant, NAD History and Physical Notes * HPI (History of Present Illness) Category Sub-Category Detail Notes Gastroenterology Fever Vomiting Abdominal Pain right lower quadrant . Pt states he started with pain in his right lower side Tuesday night. Pt states the pain is worse at night when he lays down. Pt states the pain is not getting any better but not worse either Diarrhea Nausea
--- OUTSIDE RECORDS SUMMARY | 2023-11-16 08:02 | XMS_ITS ---
Author Organization [facility] Address [address] [facility] 36 [facility] [address] [place] [id number] Care Team Providers Care Furniture Reproducer Name Role Phone Grisel Scott Primary Care Provider [phone] GRISEL SCOTT Unavailable Unavailable REASON FOR VISIT Message MEDICATIONS Medication SIG (Take, Route, Fr equency, Duration) Notes Start Date End Date Status Indomethacin 50 MG 1 cap(s) orally 3 ti mes a day as needed for 30 day(s) Active Encounters Encounter Location Date Provider Diagnosis [facility] [address] [facility] 36 [facility] [address] [place] [phone] 07/22/2023 Grisel Scott Gout, unspecified cause, unspecified chronicity, unspecified site M10.9 ASSESSMENTS Encounter Date Diagnosis Assessment Notes Treatment Notes Treatment Clinical Notes 07/22/2023 Gout, unspecified cause, unspecified chronicity, unspecified site (ICD-10 - M10.9) PLAN OF TREATMENT Medication Medication Name Sig Start Date Stop Date Notes Indomethacin 50 MG 1 cap(s) orally 3 ti mes a day as needed for 30 day(s) Next Appt Details Provider Name:Grisel Reid ry, 11/22/2023 09:00:00 AM, [address] [facility] 36 [facility], [address], [place], [phone],
--- OUTSIDE RECORDS SUMMARY | 2023-11-16 08:02 | XMS_ITS ---
Author Organization [facility] Address [address] [facility] 36 [facility] [address] [place] [phone] Care Team Providers Care Spa Manager/Esthetician Name Role Phone Grisel Scott Primary Care Provider GRISEL SCOTT Unavailable Unavailable REASON FOR VISIT Test Results* Encounters Encounter Location Date Provider Diagnosis [facility] [address] [facility] [address] [place] [id number] 05/30/2023 Grisel Scott PLAN OF TREATMENT Next Appt Details Provider Name:Grisel Reid ry, 11/22/2023 09:00:00 AM, [address], [address], [place], [phone],
== END 2023-11-16 11:19 ==
LOC: ACC 08:00
PROVIDERS: PCP Family Medicine; Visit Provider Physician Assistant
DX: Z79.01 Long term (current) use of anticoagulants (principal); I48.0 Paroxysmal atrial fibrillation
CPT/HCPCS: 85610; 99211; G0463

== ENCOUNTER 2023-12-29 08:50 | Outpatient (CLI) | payer MEDICARE, SELFPAY ==
[2023-12-29 09:33] LABS: PHA INR Fingerstick 2.3 (0.9-1.1)
== END 2023-12-29 09:37 ==
LOC: ACC 08:52
PROVIDERS: PCP Family Medicine; Visit Provider Physician Assistant
DX: Z79.01 Long term (current) use of anticoagulants (principal); I48.91 Unspecified atrial fibrillation
CPT/HCPCS: 85610; 99211; G0463

== ENCOUNTER 2024-02-03 08:24 | Outpatient (CLI) | payer MEDICARE, SELFPAY ==
[2024-02-03 09:37] LABS: Alanine Aminotransferase 28 U/L (12-78); Albumin Level 4.3 g/dl (3.5-5.0); Alkaline Phosphatase 45 U/L (38-126); Anion Gap 12.4 mEq/L (5-15); Aspartate Amino Transferase 37 U/L (17-59); Bilirubin,Direct 0.4 mg/dl (0.0-0.4); Bilirubin,Indirect 0.3 mg/dL (0.0-0.9); Bilirubin,Total 0.7 mg/dl (0.2-1.3); Bilirubin,Unconjugated 0.3 mg/dL (0.0-1.1); Blood Urea Nitrogen 18 mg/dl (9-20); Calcium 9.2 mg/dl (8.4-10.2); Carbon Dioxide 23 mmol/L (22.0-30.0); Chloride 107 mmol/L (98-107); Chol/HDL Ratio 4.6 (1-3.5); Cholesterol 176 mg/dl (140-200); Estimated Glomerular Filt Rate 83 ml/min (>60); GFR (African American) 101 ML/MIN (>60); Glucose 119 mg/dl (74-100); HDL Cholesterol 38 mg/dl (40-60); Potassium 4.4 mmoL/L (3.5-5.1); Sodium 138 mmol/L (136-145); Total Protein,Serum 6.9 g/dl (6.3-8.2)
[2024-02-03 09:39] LABS: Triglycerides 404 mg/dl (30-150)
[2024-02-03 09:48] LABS: Direct LDL Cholesterol 73.55 mg/dL (100-129)
== END 2024-02-03 23:59 | disposition home or self-care (01) ==
LOC: LAB 08:26
PROVIDERS: PCP Family Medicine; Visit Provider Physician Assistant
DX: I48.0 Paroxysmal atrial fibrillation (principal); I10 Essential (primary) hypertension; G47.33 Obstructive sleep apnea (adult) (pediatric); E78.2 Mixed hyperlipidemia; K21.9 Gastro-esophageal reflux disease without esophagitis
CPT/HCPCS: 36415; 80048; 80061; 80076

== ENCOUNTER 2024-02-06 08:23 | Outpatient (CLI) | payer MEDICARE, SELFPAY ==
[2024-02-06 14:00] LABS: PHA INR Fingerstick 2.1 (0.9-1.1)
== END 2024-02-06 14:05 ==
LOC: ACC 08:25
PROVIDERS: PCP Family Medicine; Visit Provider Physician Assistant
DX: Z79.01 Long term (current) use of anticoagulants (principal); I48.91 Unspecified atrial fibrillation
CPT/HCPCS: 85610; 99211; G0463

== ENCOUNTER 2024-03-22 08:32 | Outpatient (CLI) | payer MEDICARE, SELFPAY ==
[2024-03-22 11:56] LABS: PHA INR Fingerstick 2.4 (0.9-1.1)
== END 2024-03-22 12:08 ==
LOC: ACC 08:35
PROVIDERS: PCP Family Medicine; Visit Provider Physician Assistant
DX: Z79.01 Long term (current) use of anticoagulants (principal); I48.91 Unspecified atrial fibrillation
CPT/HCPCS: 85610; 99211; G0463

== ENCOUNTER 2024-05-03 07:57 | Outpatient (CLI) | payer MEDICARE, SELFPAY ==
[2024-05-03 08:14] LABS: PHA INR Fingerstick 2.2 (0.9-1.1)
== END 2024-05-03 08:15 ==
LOC: ACC 07:59
PROVIDERS: PCP Family Medicine; Visit Provider Physician Assistant
DX: Z79.01 Long term (current) use of anticoagulants (principal); I48.91 Unspecified atrial fibrillation
CPT/HCPCS: 85610; 99211; G0463

== ENCOUNTER 2024-07-02 09:48 | Outpatient (CLI) | payer MEDICARE, SELFPAY ==
[2024-07-02 13:34] LABS: PHA INR Fingerstick 1.8 (0.9-1.1)
== END 2024-07-02 13:36 ==
LOC: ACC 09:49
PROVIDERS: PCP Family Medicine; Visit Provider Physician Assistant
DX: Z79.01 Long term (current) use of anticoagulants (principal); I48.91 Unspecified atrial fibrillation
CPT/HCPCS: 85610; 99211; G0463

== ENCOUNTER 2024-08-09 09:27 | Outpatient (CLI) | payer MEDICARE, SELFPAY ==
[2024-08-09 13:00] LABS: PHA INR Fingerstick 1.4 (0.9-1.1)
== END 2024-08-09 13:35 ==
LOC: ACC 09:28
PROVIDERS: PCP Family Medicine; Visit Provider Physician Assistant
DX: Z79.01 Long term (current) use of anticoagulants (principal); I48.91 Unspecified atrial fibrillation
CPT/HCPCS: 85610; 99211; G0463

== ENCOUNTER 2024-08-23 07:58 | Outpatient (CLI) | payer MEDICARE, SELFPAY ==
--- OUTSIDE RECORDS SUMMARY | 2023-11-22 05:00 | XMS_ITS ---
Author Organization [facility] Address [address] [facility] 36 [facility] [address] [place] [phone] Care Team Providers Care Inspector Crystal Name Role Phone Grisel Scott Primary Care Provider [phone] GRISEL SCOTT Unavailable Unavailable Allergies No Known Allergies REASON FOR VISIT 6 months Encounters Encounter Location Date Provider Diagnosis [place] [address] [place] [id number] 11/22/2023 Grisel Scott Plan Of Treatment Next Appt Details Provider Name:Grisel Reid ry, 02/18/2025 09:15:00 AM, [address], [address], [place], [phone], Progress Notes * Lambert MANCIADOB:1955 (68 yo M)Acc No.[id number]:11/22/2023 Progress Notes Patient: Lambert NELSON Provider: Vera [...] detector use: yes. Marital Status: . 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 Past smoking status: no. Recreational drug use: no. Alcohol: Type: , Frequency:socially ,Years: , Determination:. * Allergies: N .K.D.A. Objective: * Vitals: Assessment: Plan: * Treatment: * Billing Information: * Visit Code: * Procedure Codes: * Electronic signature of Zeenat Scott MD on 08/23/2024 at 08:01 AM EDT Sign off status: Pending * Provider: Vera Scott M.D. Date: 0 11/22/2023 Generated for Mark scott/Radha/Raheem on: 0 08/23/2024 08:01 AM EDT History and Physical Notes * HPI (History of Present Illness) Category Sub-Category Detail Notes Category Not es Endocrinology Hypothyroidism Pt here to f/u Cardiology Blood Pressure Elevated Pt here for 6 mo f/u on hypertension, states he is doing well and does not have any concerns Hyperlipidemia Pt is fasting today
--- OUTSIDE RECORDS SUMMARY | 2024-03-13 06:45 | XMS_ITS ---
Author Organization [facility] Address [address] [place] [phone] Care Team Providers Care Maintenance And Repair Worker Name Role Phone Grisel Scott Primary Care Provider GRISEL SCOTT Unavailable Unavailable Marcela Galeano Unavailable [phone] Allergies No Known Allergies Results Component Value [...] orally once daily for 90 days Active Allopurinol 100 MG 1 tab(s) orally 2 ti mes a day for 90 days Active Cardizem CD 240 MG 1 cap(s) orally once a day for 90 days Active Digoxin 125 MCG 1 tab(s) orally once a day for 90 days Active Lisinopril-hydroCHLOROthiaz jarvis 20-12.5 MG 1 tab(s) orally once daily for 90 days Active CareTouch CPAP & BIPAP Hose 1 DIRECTED Active Indomethacin 50 MG 1 cap(s) orally 3 ti mes a day as needed for 30 day(s) Active Fenofibrate 160 MG 1 tab(s) orally once daily for 90 days Active Metoprolol Succinate ER 100 MG 1 tab(s) orally once a day for 90 days Active Warfarin Sodium 5 MG 1 tablet Orally Onc e a day for 30 day(s) Active Vitamin D3 125 [...] 03/13/2024 Encounters Encounter Location Date Provider Diagnosis [facility] 1210 [facility] 36 [facility] [address] [place] [id number] 03/13/2024 Marcela Galeano COVID-19 U07. 1 Assessments [...] Name:Grisel Reid , 02/18/2025 09:15:00 AM, 1210 [facility] 36 [facility], [address], [place], [phone], Progress Notes * Lambert MANCIADOB:1955 (68 yo M)Acc No.[id number]:03/13/2024 Progress Notes Patient: Lambert NELSON Provider: GIORGI Carter :1955 A ge:68 Y S ex:Male Date:03/13/2024 Address:[address] [id number] Pcp:Grisel Scott Subjective: * Chief Complaints: * 1 . [...] D deficiency, Colon polyps, Atrial fibrillation, Dx: 2016, Impaired fasting glucose. * Surgical History: C olonoscopy 2007, 2015, CardioVersion x 2 2015, Total Lt Knee Replacement 06/2020. * Hospitalization/Major Diagno stic Procedure: A -[facility] 12/2015. * Family History: F ather: [...] detector use: yes. Marital Status: . 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 Past smoking status: no. Recreational [...] well nourished and hydrated, NAD, alert, active. Eyes: sclera and conjunctiva clear. Ears: auditory canals normal bilaterally, tympanic membranes normal bilaterally. Sinuses : non tender bilaterally. Oral cavity : erythema without exudate on pharynx. Neck : supple, no cervical lymphadenopathy. Heart : RRR. Lungs: C TAB A&P. Abdomen : BS present, soft, nontender, no hepatosplenomegaly. [...] results while patient in office.Marcela Galeano 03/13/2024 8:42:28 PM > * Procedure Codes: G 2211 Complex e/[place], [address] Flu Test- Nasal Swab, Modifiers: QW , 25779 COVID TEST IN HOUSE, Modifiers: QW * Follow Up: p rn * Billing Information: * Visit Code: 73400 Office Visit, Est Pt., Level 3. * Procedure Codes: G2211 Complex e/[place]. [address] Flu Test- Nasal Swab. Modifiers: QW 25507 COVID TEST IN HOUSE. Modifiers: QW * Electronic signature of Charlotte Galeano APRN on 08/23/2024 at 08:00 AM EDT Sign off status: Pending * Provider: GIORGI Carter Date: 1 Generated for Mark scott/Radha/Geraitting on: 0 08/23/2024 08:00 AM EDT History and Physical Notes * [...]
--- OUTSIDE RECORDS SUMMARY | 2024-08-17 06:30 | XMS_ITS ---
Author Organization [facility] Address [address] [place] [id number] Care Team Providers Care Chief Executive Or Managing Director Name Role Phone Grisel Scott Primary Care [...] 112 Performing Lab: Notes/Report: Test performed by [facility] [address] [place] [address] , [address], [place] [address] Joaquín Little MD, Coordinating Producer CLIA: [id number] Sodium 139 135-145 mmol/L Potassium 4.4 3.5-5.3 [...] Interpretation:Normal Performing Lab: Notes/Report: Test performed by [facility] [address] [place] [address] , [place] [address] Joaquín Little MD, Coordinating Producer CLIA: [id number] Thyroxine Free (free T4) 1.04 0.86-1.76 ng/dL P-Lipid Panel Reviewed date:08/20/2024 01:14:17 PM Interpretation:trigs 311. hdl 36, non-hdl 139 Performing Lab: Notes/Report: Test performed by [facility] [address] [place] [address] , [address], [place] [address] Joaquín Little MD, Coordinating Producer CLIA: [id number] Cholesterol 175 <200 mg/dL Triglycerides 311 <150 [...] Interpretation:Normal Performing Lab: Notes/Report: Test performed by [facility] , [address], [place] [address] Joaquín Little MD, Coordinating Producer CLIA: [id number] PSA 0.83 <4.00 ng/mL Please note this is an ultrasensitive PSA assay with a lower limit of detection of 0.014 ng/mL. This test is performed by the Venancio ECLIA methodology. Values obtained with different assay methods or kits cannot be directly compared. P-TSH Reviewed date:08/20/2024 01:14:17 PM Interpretation:Normal Performing Lab: Notes/Report: Test performed by [facility] , [address], [place] [address] Joaquín Little MD, Coordinating Producer CLIA: [id number] TSH 4.30 0.43-5.25 mU/L P-Microalbumin/Creatinine, R andom Urine Sample Reviewed date:08/20/2024 01:14:17 PM Interpretation:Normal Performing Lab: Notes/Report: Test performed by [facility] , [address], [place] [address] Joaquín Little MD, Coordinating Producer CLIA: [id number] Albumin/Creatinine Ratio, Urine 8 0-30 ug/m g Microalbumin, Urine, Random 1.5 Creatinine, Urine 195.3 P-Uric Acid Reviewed date:08/20/2024 01:14:17 PM Interpretation:Normal Performing Lab: Notes/Report: Test performed by [facility] [address] , [address], [place] [address] Joaquín Little MD, Coordinating Producer CLIA: [id number] Uric Acid 6.0 3.4-8.0 mg/dL P-Vitamin D 25-Hydroxy Reviewed date:08/20/2024 01:14:17 PM Interpretation:38 Performing Lab: Notes/Report: Test performed by [facility] [address] [facility] , [address], [place] [address] Joaquín Little MD, Coordinating Producer CLIA: [id number] Vitamin D 25-Hydroxy 38.0 30.0-100.0 ng/mL Interpretation [...] e a day for 30 day(s) Active Ondansetron HCl 4 MG 1 tablet Orally thr ee times a day as needed 11/18/2023 Active Digoxin 125 MCG 1 tab(s) orally once a day for 90 days Active Lisinopril-hydroCHLOROthiaz jarvis 20-12.5 MG 1 tab(s) orally twice a day for 90 days Active Cardizem CD 240 MG 1 cap(s) orally once a day for 90 days Active Allopurinol 100 MG 1 tab(s) orally 2 ti mes a day for 90 days Active Metoprolol Succinate ER 100 MG 1 tab(s) orally once a day for 90 days Active Fenofibrate 160 MG 1 tab(s) orally once daily for 90 days Active Indomethacin 50 mg TAKE ONE CAPSULE BY MOUTH THREE TIMES DAILY NEEDED for 30 Active Vital Signs Blood pressure systolic 134 mm Hg 08/18/19 25 Blood pressure diastolic 72 mm Hg 025 Heart Rate 60 /min 08/17/2024 Height 69.75 in 08/17/2024 Weight 271.0 lbs 08/17/2024 BMI 39.16 kg/m2 08/17/2024 Encounters Encounter Location Date Provider Diagnosis [facility] [address] [facility] [address] [place] [id number] 08/17/2024 Grisel Scott Essential hypertensi on I10 [...] tab(s) orally once daily for 90 days Digoxin 125 MCG 1 tab(s) orally once a day for 90 days Lisinopril-hydroCHLOROthiazi de 20-12.5 MG 1 tab(s) orally twice a day for 90 days Cardizem CD 240 MG 1 cap(s) orally once a day for 90 days Allopurinol 100 MG 1 tab(s) orally 2 ti mes a day for 90 days Metoprolol Succinate ER 100 MG 1 tab(s) orally once a day for 90 days Fenofibrate 160 MG 1 tab(s) orally once daily for 90 days Next Appt Details Follow Up: 6 Months, Reason: Provider Name:Grisel Reid ry, 02/18/2025 09:15:00 AM, [address], [address], [place], [id number], Progress Notes * Lambert MANCIADOB:1955 (68 yo M)Acc No.[id number]:08/17/2024 Progress Notes Patient: Lambert NELSON Provider: Vera Scott M.D. :1955 A ge:68 Y S ex:Male Date:08/17/2024 Address:[facility] [place], [id number] Subjective: * Chief Complaints: * 1 . [...] detector use: yes. Marital Status: . 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 Past smoking status: no. Recreational drug use: [...] Temp: 97.8, BP: 134/72, HR: 60, Nurse: [facility], Ht: 69.75, BMI:39.16. * Examination: C ardiology: General Appearance: p leasant, NAD. Heart sounds: RRR. Lungs: c lear, no rales or wheezes. Extremities: n o leg edema. Peripheral pulses: 2 plus bilateral. ? Assessment: * Assessment: 1. E ssential hypertension [...] G 2211 Complex e/[place], [address] GLUCOSE TEST, 46074 GLYCATED HEMOGLOBIN TEST, Modifiers: QW , G8950 PREHTN/HTN BP DOC INDCD F/U DOC, G8752 MOST RECENT SYSTOLIC BP < 140MM HG, G8754 MOST RECENT DIASTOLIC BP < 90MM HG, 3044F HG A1C LEVEL LT 7.0%, 1036F TOBACCO NON-USER * Follow Up: 6 Months * Billing Information: * Visit Code: 33666 Office Visit, Est Pt., Level 4. * Procedure Codes: G2211 Complex e/[place]. [address] GLUCOSE TEST. 89571 GLYCATED HEMOGLOBIN TEST. Modifiers: QW G8950 PREHTN/HTN BP DOC INDCD F/U DOC. G8752 MOST RECENT SYSTOLIC BP < 140MM HG. G8754 MOST RECENT DIASTOLIC BP < 90MM HG. 3044F HG A1C LEVEL LT 7.0%. 1036F TOBACCO NON-USER. * Electronic signature of Zeenat Scott MD on 08/23/2024 at 08:00 AM EDT Sign off status: Pending * Provider: Vera Scott M.D. Date: 0 08/17/2024 Generated for Mark scott/Radha/Geraitting on: 0 08/23/2024 [...]
--- OUTSIDE RECORDS SUMMARY | 2024-08-23 08:01 | XMS_ITS ---
Author Organization Unknown Vital Signs BpStanding BpSitting BpSupine Date Temperature HeartRate Weight Hei ght Spo2 Respiration Bmi HeadCircumference FieldCount TimeRecorded NeckCircumferen ce WaistCircumference Pulse 128/70 03/13 00:00 :00 97.7 88 268,0 5,10 38.7 3 6 08/14/2024 10:45:00 132/74 11/17 00:00 :00 98.7 59 274,9.6 0 5,10 39.6 8 6 08/14/2024 09:30:00
--- OUTSIDE RECORDS SUMMARY | 2024-08-23 08:01 | XMS_ITS | Clinical Summary ---
Author Organization Healthcare Address [address] [id number] Care Team Providers Care Corporate Wellness Coordinator Name Role Phone Feliciano Scott MD Primary Care Provider [phone] Social History Tobacco Use Types Packs/Day Years Used Date Smoking Tobacco: Never Assessed Sex and Gender Information Value Date Recorded Sex Assigned at Not on file Legal Sex Male 6:13 PM EDT Gender Identity Not on file Sexual Orientation Not on file Plan of Treatment Health Maintenance Due Date Last Done Comments [facility]-Depression Screening 1955 [facility]-Infant/Child/Adol SDOH Screenings 1955 [facility]- SDOH Screenings 10/20/1971 [facility]-Adult SDOH Screenings 10/20/1971 CT Colonography 1998 Colonoscopy 1998 FIT-DNA 1998 FIT 1998 FOBT 1998 Sigmoidoscopy 1998 [facility]-Colorectal Cancer Screening 1998 [facility]-Zoster Vaccines (2 of 2) 02/05/2020 12/11/2019 [facility]-Pneumococcal Vaccine: 50 + Years (2 of 2 - PPSV23) 12/10/2020 12/11/2019 [id number] Vaccine (2 - 20 24-25 season) 2023 05/24/2020 [facility]-Influenza Vaccine (Seaso n Ended) 2024 12/11/2019 [facility]-DTaP,Tdap,and Td Vaccine s (2 - Td or Tdap) 09/24/2028 09/24/2018 [facility]-RSV Vaccine: 60+ Years o r (1 - 1-dose 75+ series) 2028 HPV Vaccines Aged Out No longer eligi ble based on patient's age to complete this topic [facility]-HIB Vaccines Aged Out No longer e ligible based on patient's age to complete this topic [facility]-Hepatitis A Vaccines Aged Out No longer eligible based on patient's age to complete this topic [facility]-IPV Vaccines Aged Out No longer e ligible based on patient's age to complete this topic [facility]-Rotavirus Vaccines Aged Out No lo nger eligible based on patient's age to complete this topic Insurance [place] [id number] MED[place] Care Teams Corporate Wellness Coordinator Relationship Specialty Start Date End Date Feliciano Scott MD [address] [facility] [address] [place] [id number] PCP - General 07/25/20
--- OUTSIDE RECORDS SUMMARY | 2024-08-23 08:01 | XMS_ITS | Patient Health Record ---
[facility] Address [address] [place] [id number] Care Team Providers Care Video News Editor Name Role Phone Grisel Scott Primary Care Provider GRISEL SCOTT Unavailable Unavailable Marcela Galeano Unavailable [phone] Allergies No Known Allergies Results Component Value Reference Range Notes Influenza Screen (in house) Reviewed date:03/13/2024 08:42:28 PM Interpretation:Negative Performing Lab: Notes/Report: Negative results Neg Covid test (in house) Reviewed date:03/13/2024 08:42:09 PM Interpretation:Positive Performing Lab: Notes/Report: Positive Result: Pos Glucose (In-House) Reviewed date:08/20/2024 01:14:17 PM Interpretation:133 Performing Lab: Notes/Report: 133 blood glucose 133 74 - 106 mg/dL Glycohemoglobin A1c (in hous e) Reviewed date:08/20/2024 01:14:17 PM Interpretation:6.1 Performing Lab: Notes/Report: 6.1 glycohemoglobin 6.1% 5 - 6.5 % P-Comprehensive Metabolic Pa nasima ([facility]) Reviewed date:08/20/2024 01:14:17 PM Interpretation:gluc 112 Performing Lab: Notes/Report: Test performed by [employer] [facility] , [address], [place] [address] Joaquín Little MD, Marble Installer CLIA: [id number] Sodium 139 135-145 mmol/L Potassium 4.4 3.5-5.3 [...] Interpretation:Normal Performing Lab: Notes/Report: Test performed by [employer] [address] [place] [address] , [place] [address] Joaquín Little MD, Marble Installer CLIA: [id number] Thyroxine Free (free T4) 1.04 0.86-1.76 ng/dL P-Lipid Panel Reviewed date:08/20/2024 01:14:17 PM Interpretation:trigs 311. hdl 36, non-hdl 139 Performing Lab: Notes/Report: Test performed by [employer] [address] [place] [address] , [facility] [place] [address] Joaquín Little MD, Marble Installer CLIA: [id number] Cholesterol 175 <200 mg/dL Triglycerides 311 <150 [...] Interpretation:Normal Performing Lab: Notes/Report: Test performed by [employer] [address], [facility] [place] , [place] [address] Joaquín Little MD, Marble Installer CLIA: [id number] PSA 0.83 <4.00 ng/mL Please note this is an ultrasensitive PSA assay with a lower limit of detection of 0.014 ng/mL. This test is performed by the Venancio ECLIA methodology. Values obtained with different assay methods or kits cannot be directly compared. P-TSH Reviewed date:08/20/2024 01:14:17 PM Interpretation:Normal Performing Lab: Notes/Report: Test performed by [employer] [address] [place] [address] , [address], [place] [address] Joaquín Little MD, Marble Installer CLIA: [id number] TSH 4.30 0.43-5.25 mU/L P-Microalbumin/Creatinine, R andom Urine Sample Reviewed date:08/20/2024 01:14:17 PM Interpretation:Normal Performing Lab: Notes/Report: Test performed by [employer] [address] [place] [address] , [address], [place] [address] Joaquín Little MD, Marble Installer CLIA: [id number] Albumin/Creatinine Ratio, Urine 8 0-30 ug/m g Microalbumin, Urine, Random 1.5 Creatinine, Urine 195.3 P-Uric Acid Reviewed date:08/20/2024 01:14:17 PM Interpretation:Normal Performing Lab: Notes/Report: Test performed by [employer] [address] [place] [address] [place] [address] Joaquín Little MD, Marble Installer CLIA: [id number] Uric Acid 6.0 3.4-8.0 mg/dL P-Vitamin D 25-Hydroxy Reviewed date:08/20/2024 01:14:17 PM Interpretation:38 Performing Lab: Notes/Report: Test performed by [employer] [address] [place] [address] [place] [address] Joaquín Little MD, Marble Installer CLIA: [id number] Vitamin D 25-Hydroxy 38.0 30.0-100.0 ng/mL Interpretation of Vitamin D 25 OH: < 20 ng/mL - Deficiency 20 - 29 ng/mL - Insufficiency 30 - 100 ng/mL - Sufficiency > 100 ng/mL - Super-therapeutic- toxicity may occur above this level. Clinical correlation required. CBC Fingerstick (in house) Reviewed date:11/21/2023 03:08:26 [...] - 38 plat 161 100 - 400 Medications Medication SIG (Take, Route, Frequency, Duration) Notes Start Date End Date Status Fenofibrate 160 MG 1 tab(s) orally once daily for 90 days Active Indomethacin 50 mg TAKE ONE CAPSULE BY MOUTH THREE TIMES DAILY NEEDED for 30 Active Pravastatin Sodium 40 MG 1 tab(s) orally once daily for 90 days Active Digoxin 125 MCG 1 tab(s) orally once a day for 90 days Active Lisinopril-hydroCHLOROthiaz jarvis 20-12.5 MG 1 tab(s) orally twice a day for 90 days Active Cardizem CD 240 MG 1 cap(s) orally once a day for 90 days Active Allopurinol 100 MG 1 tab(s) orally 2 ti mes a day for 90 days Active [employer]Touch CPAP & BIPAP Hose 1 DIRECTED Active Vitamin D3 125 MCG (5000 UT) 2 tab orally once a day 12/07/2010 Acti ve Warfarin Sodium 5 MG 1 tablet Orally Onc e a day for 30 day(s) Active Ondansetron HCl 4 MG 1 tablet Orally thr ee times a day as needed 11/18/2023 Active Metoprolol Succinate ER 100 MG 1 tab(s) orally once a day for 90 days Active Immunizations Vaccine Route Administration Date Status Comme nts [...] Administered COVID 19 Gabi Unknown 05/24/2020 Administered Problems Problem Type SNOMED Code ICD Code Onset Dates Problem Status W/U Status Risk Notes Problem 83734638 Vitamin D defici ency (E55.9) Active confirmed Problem 25030971 Essential hypert ension (I10) Active confirmed Problem 794622338 Hypertriglycerid emia (E78.1) Active confirmed Problem 941347998 Lumbar facet arthropathy (M47.816) Active confirmed Problem 92389124 Lumbar degenerat marv disc disease (M51.36) Active confirmed Problem 797467343 Acquired hypothyroidism (E03.9) Active confirmed Problem 028170788 Bulging lumbar d isc (M51.26) Active confirmed Problem 91493083 Gout, unspecifie d cause, unspecified chronicity, unspecified site (M10.9) Active confirmed Problem 777761911 History of vitam in D deficiency (Z86.39) Active confirmed Problem 74175041 Atrial fibrillat ion, unspecified type (I48.91) Active confirmed Problem 205043063726806 Primary osteoart hritis of left knee (M17.12) Active confirmed Problem 20094488 Hyperlipidemia, unspecified hyperlipidemia type (E78.5) Active confirmed Problem 506035233 Acute left-sided low back pain with left-sided sciatica (M54.42) Active confirmed Problem 756367981 IFG (impaired fa sting glucose) (R73.01) Active confirmed Problem 1627312741758233 Arthritis of le ft knee (M17.12) Active confirmed Vital Signs Heart Rate 60 /min 08/17/2024 Blood pressure diastolic 72 mm Hg 08/17/2024 Height 69.75 in 08/17/2024 Blood pressure systolic 134 mm Hg 08/17/2024 Weight 271.0 lbs 08/17/2024 BMI 39.16 kg/m2 08/17/2024 Encounters Encounter Location Date Provider Diagnosis [facility] [address] [facility] [address] [place], [place] [id number] 11/18/2023 Grisel Pawling Acute gastroenteriti s K52.9 [facility] [address] [facility] [address] [place], [place] [id number] 03/13/2024 Marcela Galeano COVID-19 U07.1 [facility] [address] [facility] [address] [place], [place] [id number] 08/17/2024 Grisel Pawling Essential hypertensi on I10 ; Hyperlipidemia, unspecified hyperlipidemia type E78.5 ; Hypertriglyceridemia E78.1 ; IFG (impaired fasting glucose) R73.01 ; Acquired hypothyroidism E03.9 ; Vitamin D deficiency E55.9 ; Prostate cancer screening Z12.5 ; Gout, unspecified cause, unspecified chronicity, unspecified site M10.9 and Atrial fibrillation, unspecified type I48.91 [facility] [address] [facility] [address] [place], [place] [id number] 08/20/2024 Grisel Pawling [facility] [address] [facility] [address] [place], [place] [id number] 11/18/2023 Grisel Pawling Acute gastroenteriti s K52.9 [facility] [address] [facility] 36 [facility] [address] [place] [id number] 03/29/2024 Grisel Scott Gout, unspecified ca use, unspecified chronicity, unspecified site M10.9 Assessments Encounter Date Diagnosis (ICD Code) Assessment Notes Treatment Notes Treatment Clinical Notes Section Notes 11/18/2023 Acute gastroenteriti s (ICD-10 - K52.9) 11/18/2023 Acute gastroenteriti s (ICD-10 - K52.9) 03/13/2024 COVID-19 (ICD-10 - U07.1) fluids, rest, supportive measures for fever/symptom relief; will start vitamins D and C and Zinc; has cough med at home; discussed precautions for prevention of spread 03/29/2024 Gout, unspecified cause, unspecified chronicity, unspecified site (ICD-10 - M10.9) 08/17/2024 Essential hypertensi on (ICD-10 - I10) 08/17/2024 Hyperlipidemia, unspecified hyperlipidemia type (ICD-10 - E78.5) 08/17/2024 Hypertriglyceridemia (ICD-10 - E78.1) 08/17/2024 IFG (impaired fastin g glucose) (ICD-10 - R73.01) 08/17/2024 Acquired hypothyroid ism (ICD-10 - E03.9) 08/17/2024 Vitamin D deficiency (ICD-10 - E55.9) 08/17/2024 Prostate cancer screening (ICD-10 - Z12.5) 08/17/2024 Gout, unspecified cause, unspecified chronicity, unspecified site (ICD-10 - M10.9) 08/17/2024 Atrial fibrillation, unspecified type (ICD-10 - I48.91) Plan Of Treatment Next Appt Details Provider Name:Grisel daigle, 02/18/2025 09:15:00 AM, [address] [facility] 36 [facility], [address], [place], [id number], Insurance Providers Payer Name Payer Address Payer Phone Subscriber Number Group Number Insured Name Patient Relationship to Insured Coverage Start Date Coverage End Date MEDICARE PART B [address] [address] [place] [id number] [phone] [id number] Lambert Mancia Self - patient is the insured [employer] [address] [place] [id number] Lambert Mancia Self - patient is the insured Medications Administered Medication Instructions Date of Administration Dosage Notes Dexamethasone 05/10/2006 1 mL Dexamethasone 07/22/2006 8 mg Dexamethasone 08/31/2014 1 mL Medical (General) History Medical History History ICD Code Hypertension Hyperlipidemia Gout Rt Shoulder Pain- treated by Dr. Scherer Vitamin D deficiency Colon polyps Atrial fibrillation, Dx: 2016 Impaired fasting glucose Surgical History Surgery Date(Month/Year) Colonoscopy 2007, 2015 CardioVersion x 2 2016 Total Lt Knee Replacement 06/2020 Hospitalization History Reason Date(Month/Year) [facility] 12/2015
--- OUTSIDE RECORDS SUMMARY | 2024-08-23 08:01 | XMS_ITS | Clinical Summary ---
Author Organization [facility] Address [address] [facility] [address] [place] [address] Phone Care Team Providers Care Magazine Filler Name Role Phone Feliciano Scott MD Primary Care Provider + [phone] Kody Shukla MD Unavailable [phone] Allergies No known active allergies Medications allopurinol (ZYLOPRIM) 100 mg Oral Tablet Take 100 mg by mouth 2 times daily. Active digoxin (LANOXIN) 125 mcg Oral Tablet Take by mouth daily. Active diltiazem 240 mg Oral Capsule, Sust. Release 24 hr Take 240 mg by mouth daily. Active fenofibrate (LOFIBRA) 160 mg Oral Tablet Take 160 mg by mouth daily. Active indomethacin (INDOCIN) 50 mg Oral Capsule Take by mouth 3 times daily as needed for Pain. Active lisinopril 20 mg Tab 20 mg, hydroCHLOROthiazide 25 mg Tab 25 mg Take by mouth daily. Active pravastatin (PRAVACHOL) 40 mg Oral Tablet Take 40 mg by mouth daily. Active rivaroxaban (XARELTO) 20 mg Oral Tablet Take 20 mg by mouth With evening meal. Active Cholecalciferol, Vitamin D3, (VITAMIN D3) 5,000 unit Oral Tablet Take by mouth. Active ferrous sulfate (IRON) 325 mg (65 mg iron) Oral Tablet Take by mouth 2 times daily. Active Active Problems Problem Noted Date Diagnosed Date PAF (paroxysmal atrial fibrillation) Asthma GODFREY (obstructive sleep apnea) Essential hypertension Surgical History Surgery Date Site/Laterality Comments CARDIOVERSION 09/11/2016 - 10/11/2016 Medical History Medical History Date Comments PAF (paroxysmal atrial fibrillation) (HCC) Asthma GODFREY (obstructive sleep apnea) Essential hypertension Social History Tobacco Use Types Packs/Day Years Used Date Smoking Tobacco: Never Tobacco Cessation:Counseling Given: No Alcohol Use Standard Drinks/Week Comments No 0 (1 standard drink = 0.6 oz pur e alcohol) Sex and Gender Information Value Date Recorded Sex Assigned at Not on file Legal Sex Male 4:50 PM EDT Gender Identity Not on file Sexual Orientation Not on file Obstetrics History Last Filed Vital Signs Vital Sign Reading Time Taken Comments Blood Pressure 128/78 10/15/2016 1:56 PM EDT Pulse 78 10/15/2016 1:56 PM EDT Temperature - - Respiratory Rate - - Oxygen Saturation 96% 10/15/2016 1:56 PM EDT Inhaled Oxygen Concentration - - Weight 115.3 kg (254 lb 3.2 oz) 10/15/2016 1:56 PM EDT Height 177.8 cm (5' 10 ) 10/15/2016 1:56 PM EDT Body Mass Index 36.47 10/15/2016 1:56 PM EDT Plan of Treatment Health Maintenance Due Date Last Done Comments Annual Wellness Exam 1958 Hepatitis C Screening 10/20/1971 DTaP/TDaP/Td (1 - Tdap) 1972 Pneumococcal Vaccine 50+ (1 of 2 - PCV) 1972 Cologuard 1998 Colon Cancer Screening 1998 Colonoscopy 1998 FIT 1998 Sigmoidoscopy 1998 Virtual Colonography 1998 Zoster (1 of 2) 10/20/2003 RSV or 60+ (1 - Ris k 60-74 years 1-dose series) 2013 COVID-19 Vaccine ( - 2023-2 5 season) 2023 Influenza Vaccine (Season Ended) 2024 Hepatitis B Vaccine Aged Out No longe r eligible based on patient's age to complete this topic Meningococcal B Vaccine Aged Out No l onger eligible based on patient's age to complete this topic Insurance [facility] CHOICE PLUS [id number] Member Subscriber Plan / Payer (Ef fective 2016-Present) Name:Lambert Mancia Relation to Subscriber:Self Name:Lambert Mancia Payer ID:[id number] (NAIC) Type:Not on file Address: [place] [phone] Care Teams Magazine Filler Relationship Specialty Start Date End Date Feliciano Scott MD [address] [place] [id number] PCP - General Family Medicine 10/07/16 Kody Shukla MD [address] [place] [address] [place] [address] Consulting Physician Internal Medicine - Clinical Cardiac Electrophysiology 10/07/16
== END 2024-08-23 13:21 ==
LOC: ACC 07:58
PROVIDERS: PCP Family Medicine; Visit Provider Physician Assistant
DX: Z79.01 Long term (current) use of anticoagulants (principal)
CPT/HCPCS: 85610; 99211; G0463

== ENCOUNTER 2024-09-13 07:55 | Outpatient (CLI) | payer MEDICARE, SELFPAY ==
--- OUTSIDE RECORDS SUMMARY | 2024-03-13 06:45 | XMS_ITS ---
Author Organization [facility] Address [address] [place] [phone] Care Team Providers Care Elementary Spanish Teacher Name Role Phone Grisel Scott Primary Care Provider GRISEL SCOTT Unavailable Unavailable Marcela Galeano Unavailable [phone] Allergies No Known Allergies Results Component Value [...] 03/13/2024 Encounters Encounter Location Date Provider Diagnosis [facility] [address] [place] [address] [address] [place] [id number] 03/13/2024 Marcela Galeano COVID-19 U07. 1 Assessments [...] Name:Grisel Reid , 02/18/2025 09:15:00 AM, 1210 [facility] 36 [facility], [address], [place], [phone], Progress Notes * JOSUE LambertDOB:1955 (68 yo M)Acc No.[id number]:03/13/2024 Progress Notes Patient: Lambert NELSON Provider: GIORGI Carter :1955 A ge:68 Y S ex:Male Date:03/13/2024 Address:[facility] [address] [id number] Pcp:Grisel T [place] Subjective: * Chief Complaints: * 1 . [...] * Hospitalization/Major Diagno stic Procedure: A -Fib- [facility] 12/2015. * Family History: F ather: [...] detector use: yes. Marital Status: . 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 Past smoking status: no. Recreational drug [...] G 2211 Complex e/[place], [address] Flu Test- Nasal Swab, Modifiers: QW , 93413 COVID TEST IN HOUSE, Modifiers: QW * Follow Up: p rn * Images: Billing Information: * Visit Code: 45458 Office Visit, Est Pt., Level 3. * Procedure Codes: G2211 Complex e/[place]. [address] Flu Test- Nasal Swab. Modifiers: QW 72373 COVID TEST IN HOUSE. Modifiers: QW * Electronic signature of Charlotte nowak Waleska , JORDIN on 09/13/2024 at 07:58 AM EDT Sign off status: Pending * Provider: GIORGI Carter Date: 1 Generated for Mark scott/Radha/Raheem on: 0 09/13/2024 07:58 AM EDT History and Physical Notes * [...]
--- OUTSIDE RECORDS SUMMARY | 2024-08-17 06:30 | XMS_ITS ---
Author Organization [facility] Address [address] [place] [id number] Care Team Providers Care Card Setter Name Role Phone Grisel Scott Primary Care [...] 112 Performing Lab: Notes/Report: Test performed by [facility] [address] [place] [address] , [address], [place] [address] Joaquín Little MD, Linux Support Engineer CLIA: [id number] Sodium 139 135-145 mmol/L Potassium 4.4 3.5-5.3 [...] Interpretation:Normal Performing Lab: Notes/Report: Test performed by [facility] [address] [place] [address] , [place] [address] Joaquín Little MD, Linux Support Engineer CLIA: [id number] Thyroxine Free (free T4) 1.04 0.86-1.76 ng/dL P-Lipid Panel Reviewed date:08/20/2024 01:14:17 PM Interpretation:trigs 311. hdl 36, non-hdl 139 Performing Lab: Notes/Report: Test performed by [facility] [address] [place] [address] , [address], [place] [address] Joaquín Little MD, Linux Support Engineer CLIA: [id number] Cholesterol 175 <200 mg/dL Triglycerides 311 <150 [...] Interpretation:Normal Performing Lab: Notes/Report: Test performed by [facility] , [address], [place] [address] Joaquín Little MD, Linux Support Engineer CLIA: [id number] PSA 0.83 <4.00 ng/mL Please note this is an ultrasensitive PSA assay with a lower limit of detection of 0.014 ng/mL. This test is performed by the Venancio ECLIA methodology. Values obtained with different assay methods or kits cannot be directly compared. P-TSH Reviewed date:08/20/2024 01:14:17 PM Interpretation:Normal Performing Lab: Notes/Report: Test performed by [facility] , [address], [place] [address] Joaquín Little MD, Linux Support Engineer CLIA: [id number] TSH 4.30 0.43-5.25 mU/L P-Microalbumin/Creatinine, R andom Urine Sample Reviewed date:08/20/2024 01:14:17 PM Interpretation:Normal Performing Lab: Notes/Report: Test performed by [facility] , [address], [place] [address] Joaquín Little MD, Linux Support Engineer CLIA: [id number] Albumin/Creatinine Ratio, Urine 8 0-30 ug/m g Microalbumin, Urine, Random 1.5 Creatinine, Urine 195.3 P-Uric Acid Reviewed date:08/20/2024 01:14:17 PM Interpretation:Normal Performing Lab: Notes/Report: Test performed by [facility] [address] , [address], [place] [address] Joaquín Little MD, Linux Support Engineer CLIA: [id number] Uric Acid 6.0 3.4-8.0 mg/dL P-Vitamin D 25-Hydroxy Reviewed date:08/20/2024 01:14:17 PM Interpretation:38 Performing Lab: Notes/Report: Test performed by [facility] [address] [facility] , [address], [place] [address] Joaquín Little MD, Linux Support Engineer CLIA: [id number] Vitamin D 25-Hydroxy 38.0 30.0-100.0 ng/mL Interpretation [...] Provider Diagnosis Ernesto [address] [facility] [address] [place] [id number] 08/17/2024 Grisel Scott Essential hypertensi on I10 [...] [address], [address], [place], [place], [id number], Progress Notes * Lambert MANCIADOB:1955 (68 yo M)Acc No.[id number]:08/17/2024 Progress Notes Patient: Lambert NELSON Provider: Vera Scott M.D. :1955 A ge:68 Y S ex:Male Date:08/17/2024 Address:[address] [place] [address] [facility], [id number] Subjective: * Chief Complaints: * 1 . [...] * Hospitalization/Major Diagno stic Procedure: A -Fib- [facility] 12/2015. * Family History: F [...] detector use: yes. Marital Status: . 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 Past smoking status: no. Recreational drug [...] G 2211 Complex e/[place], [address] GLUCOSE TEST, 65239 GLYCATED HEMOGLOBIN TEST, Modifiers: QW , G8950 PREHTN/HTN BP DOC INDCD F/U DOC, G8752 MOST RECENT SYSTOLIC BP < 140MM HG, G8754 MOST RECENT DIASTOLIC BP < 90MM HG, 3044F HG A1C LEVEL LT 7.0%, 1036F TOBACCO NON-USER * Follow Up: 6 Months * Images: Billing Information: * Visit Code: 56150 Office Visit, Est Pt., Level 4. * Procedure Codes: G2211 Complex e/[place]. [address] GLUCOSE TEST. 29022 GLYCATED HEMOGLOBIN TEST. Modifiers: QW G8950 PREHTN/HTN BP DOC INDCD F/U DOC. G8752 MOST RECENT SYSTOLIC BP < 140MM HG. G8754 MOST RECENT DIASTOLIC BP < 90MM HG. 3044F HG A1C LEVEL LT 7.0%. 1036F TOBACCO NON-USER. * Electronic signature of Zeenat Scott MD on 09/13/2024 at 07:58 AM EDT Sign off status: Pending * Provider: Vera Scott M.D. Date: 0 08/17/2024 Generated for Mark scott/Radha/Deepsmitting on: 0 09/13/2024 07:58 AM EDT History [...]
--- OUTSIDE RECORDS SUMMARY | 2024-08-20 09:12 | XMS_ITS ---
Author Organization [facility] Address [address] [facility] [address] [facility] [address] [place] [id number] Care Team Providers Care Medical Receptionist Name Role Phone Grisel Scott Primary Care Provider GRISEL SCOTT Unavailable Unavailable REASON FOR VISIT Test results* Medications Medication SIG (Take, Route, Fr equency, Duration) Notes Start Date End Date Status Icosapent Ethyl 1 GM 2 capsules with darrell ls Orally Twice a day; Duration: 90 days 08/23/2024 A ctive Encounters Encounter Location Date Provider Diagnosis Ernesto [address] [facility] [address] [facility] [address] [place] [id number] 08/20/2024 Grisel Scott Plan Of Treatment Medication Medication Name Sig Start Date Stop Date Notes Icosapent Ethyl 1 GM 2 capsules with darrell ls Orally Twice a day; Duration: 90 days 08/23/2024 Next Appt Details Provider Name:Grisel Reid ry, 02/18/2025 09:15:00 AM, [address] [facility] [address] [facility], [address], [place], [id number], Progress Notes * Lambert MANCIADOB:1955 (68 yo M)Acc No.[id number]:08/20/2024 Patient: Lambert NELSON :1955 A ge:68 Y S ex:Male Address:[address] [place] [address] * Refills Start Icosapent Ethyl Capsule, 1 GM, Orally, 360 Capsule, 2 capsules with meals, Twice a day, 90 days, Refills=1 Subjective: * Chief Complaints: * T est results* * Medical History: * Surgical History: * Hospitalization/Major Diagno stic Procedure: * Medications: Objective: * Vitals: * Physical Examination: Assessment: Plan: * Treatment: * Procedure Codes: * true * Date: Generated for Mark scott/Radha/Raheem on: 09/13/2024 07:58 AM EDT
--- OUTSIDE RECORDS SUMMARY | 2024-09-13 07:59 | XMS_ITS | Clinical Summary ---
Author Organization Healthcare Address [address] [id number] Care Team Providers Care Table Games Manager Name Role Phone Feliciano Scott MD Primary Care Provider [phone] Social History Tobacco Use Types Packs/Day Years [...] (2 of 2 - PPSV23) 12/10/2020 12/11/2019 [id number] Vaccine (2 - 20 24-25 season) 2023 05/24/2020 [facility]-Influenza Vaccine (#1) 2024 12/11/2019 [facility]-DTaP,Tdap,and Td Vaccine s (2 [...] to complete this topic Insurance [place] [id number] MEDICARE Care Teams Table Games Manager Relationship Specialty Start Date End Date Feliciano Scott MD [address] [facility] [address] [place] [id number] PCP - General 07/25/20
--- OUTSIDE RECORDS SUMMARY | 2024-09-13 07:59 | XMS_ITS | Clinical Summary ---
Author Organization [facility] Address [address] [facility] [address] [place] [address] Phone Care Team Providers Care Veterinary Epidemiologist Name Role Phone Feliciano Scott MD Primary Care Provider + [phone] Kody Shukla MD Unavailable Allergies No known active allergies Medications allopurinol [...] patient's age to complete this topic Insurance [facility] CHOICE PLUS [id number] Member Subscriber Plan / Payer (Ef fective 2016-Present) Name:Lambert Mancia Relation to Subscriber:Self Name:Lambert Mancia Payer ID:[id number] (NAIC) Type:Not on file Address: [place] [phone] Care Teams Veterinary Epidemiologist Relationship Specialty Start Date End Date Feliciano Scott MD [address] [place] [id number] PCP - General Family Medicine 10/07/16 Kody Shukla MD [address] [place] [address] [place] [address] Consulting Physician Internal Medicine - Clinical Cardiac Electrophysiology 10/07/16
--- OUTSIDE RECORDS SUMMARY | 2024-09-13 07:59 | XMS_ITS | Patient Health Record ---
[facility] Organization [facility] Address [address] [place] [id number] Care Team Providers Care Dental Laboratory Technician Name Role Phone Grisel Scott Primary Care Provider GRISEL SCOTT Unavailable Unavailable Marcela Galeano Unavailable [phone] Allergies No Known Allergies Results Component Value [...] - 6.5 % P-Comprehensive Metabolic Pa nasima ([facility]) Reviewed date:08/20/2024 01:14:17 PM Interpretation:gluc 112 Performing Lab: Notes/Report: Test performed by [employer] , [address], [place] [address] Joaquín Little MD, Linen Clerk CLIA: [id number] Sodium 139 135-145 mmol/L Potassium 4.4 3.5-5.3 [...] Interpretation:Normal Performing Lab: Notes/Report: Test performed by [facility] [address] [place] [address] , [place] [address] Joaquín Little MD, Linen Clerk CLIA: [id number] Thyroxine Free (free T4) 1.04 0.86-1.76 ng/dL P-Lipid Panel Reviewed date:08/20/2024 01:14:17 PM Interpretation:trigs 311. hdl 36, non-hdl 139 Performing Lab: Notes/Report: Test performed by [facility] [address] [place] [address] , [facility] [place] [address] Joaquín Little MD, Linen Clerk CLIA: [id number] Cholesterol 175 <200 mg/dL Triglycerides 311 <150 [...] Interpretation:Normal Performing Lab: Notes/Report: Test performed by [facility] [address] [place] , [place] [address] Joaquín Little MD, Linen Clerk CLIA: [id number] PSA 0.83 <4.00 ng/mL Please note this is an ultrasensitive PSA assay with a lower limit of detection of 0.014 ng/mL. This test is performed by the Venancio ECLIA methodology. Values obtained with different assay methods or kits cannot be directly compared. P-TSH Reviewed date:08/20/2024 01:14:17 PM Interpretation:Normal Performing Lab: Notes/Report: Test performed by [facility] [address] [place] [address] , [address], [place] [address] Joaquín Little MD, Linen Clerk CLIA: [id number] TSH 4.30 0.43-5.25 mU/L P-Microalbumin/Creatinine, R andom Urine Sample Reviewed date:08/20/2024 01:14:17 PM Interpretation:Normal Performing Lab: Notes/Report: Test performed by [facility] [address] [place] [address] , [address], [place] [address] Joaquín Little MD, Linen Clerk CLIA: [id number] Albumin/Creatinine Ratio, Urine 8 0-30 ug/m g Microalbumin, Urine, Random 1.5 Creatinine, Urine 195.3 P-Uric Acid Reviewed date:08/20/2024 01:14:17 PM Interpretation:Normal Performing Lab: Notes/Report: Test performed by [facility] [address] [place] [address] [place] [address] Joaquín Little MD, Linen Clerk CLIA: [id number] Uric Acid 6.0 3.4-8.0 mg/dL P-Vitamin D 25-Hydroxy Reviewed date:08/20/2024 01:14:17 PM Interpretation:38 Performing Lab: Notes/Report: Test performed by [facility] [address] [place] [address] [place] [address] Joaquín Little MD, Linen Clerk CLIA: [id number] Vitamin D 25-Hydroxy 38.0 30.0-100.0 ng/mL Interpretation [...] THREE TIMES DAILY NEEDED; Duration: 30 Active Pravastatin Sodium 40 MG 1 tab(s) orally once daily; Duration: 90 days Active Digoxin 125 MCG 1 tab(s) orally once a day; Duration: 90 days Active Lisinopril-hydroCHLORO thiazide 20-12.5 MG 1 tab(s) orally twice a day; Duration: 90 days Active Cardizem CD 240 MG 1 cap(s) orally once a day; Duration: 90 days Active Allopurinol 100 MG 1 tab(s) orally 2 times a day; Duration: 90 days Active CareTouch CPAP & BIPAP Hose 1 DIRECTED Active Vitamin D3 125 MCG (5000 UT) 2 tab orally once a day 12/07/2010 Active Warfarin Sodium 5 MG 1 tablet Orally Once a day; Duration: 30 day(s) Active Ondansetron HCl 4 MG 1 tablet Orally three times a day as needed 11/18/2023 Active Icosapent Ethyl 1 GM 2 capsules with meals Orally Twice a day; Duration: 90 days Please dispense generic. 08/23/2024 Active Metoprolol Succinate ER 100 MG 1 tab(s) orally once a day; Duration: 90 days Active Immunizations Vaccine Route Administration Date Status Comme nts COVID 19 Gabi Unknown 05/24/2020 Administered Fluzone High Dose (65yr and older) Unknown 12/11/2019 Administered Fluzone High Dose (65yr and older) IM Intramuscular 12/16/2020 Administered Fluzone High Dose (65yr and older) IM Intramuscular 11/24/2022 Administered Fluzone Quad (6months&older) IM Intramuscular 11/22/2016 Administered Prevnar (PCV13) Unknown 12/11/2019 Administered Prevnar (PCV20) IM Intramuscular 11/24/2022 Administered Shingrix Unknown 12/11/2019 Administered Tetanus Tdap-Adacel (over 7yrs) IM Intramuscular 11/10/2015 Administered Tetanus Tdap-Adacel (over 7yrs) Unknown 09/24/2018 Administered Problems Problem Type SNOMED Code ICD Code Onset Dates Problem Status W/U Status Risk Notes Problem Vitamin D deficiency (85782672) Vitamin D deficiency (E55.9) Active confirmed Problem Essential hypertension (64809394) Essential hypertension (I10) Active confirmed Problem Hypertriglyceridemia (918215700) Hypertriglyceridemia (E78.1) Active confirmed Problem Arthropathy of lumba r facet joint (411111186) Lumbar facet arthropathy (M47.816) Active confirmed Problem Degeneration of lumbar intervertebral disc (17639389) Lumbar degenerative disc disease (M51.36) Active confirmed Problem Acquired hypothyroidism (993159800) Acquired hypothyroidism (E03.9) Active confirmed Problem Displacement of lumbar intervertebral disc without myelopathy (64907896) Bulging lumbar disc (M51.26) Active confirmed Problem Gout (55631309) Gout, unspecifie d cause, unspecified chronicity, unspecified site (M10.9) Active confirmed Problem History of nutritional deficiency (90850803454125) History of vitamin D deficiency (Z86.39) Active confirmed Problem Atrial fibrillation (18911832) Atrial fibrillation, unspecified type (I48.91) Active confirmed Problem Osteoarthritis of knee (134371468) Primary osteoarthritis of left knee (M17.12) Active confirmed Problem Hyperlipidaemia (44710559) Hyperlipidemia, unspecified hyperlipidemia type (E78.5) Active confirmed Problem Sciatica (21955048) Acute left-s ided low back pain with left-sided sciatica (M54.42) Active confirmed Problem Impaired fasting glycaemia (898542215) IFG (impaired fasting glucose) (R73.01) Active confirmed Problem Arthritis of left knee (9130648514112262) Arthritis of left knee (M17.12) Active confirmed Vital Signs Heart Rate 60 /min 08/17/2024 Blood pressure diastolic 72 mm Hg 08/17/2024 Height 69.75 in 08/17/2024 Blood pressure systolic 134 mm Hg 08/17/2024 Weight 271.0 lbs 08/17/2024 BMI 39.16 kg/m2 08/17/2024 Encounters Encounter Location Date Provider Diagnosis [facility] [address] [facility] [address] [place], [place] [id number] 11/18/2023 Grisel Scott Acute gastroenteriti s K52.9 [facility] [address] [facility] [address] [place], [place] [id number] 03/13/2024 Marcelaosiel Galeano COVID-19 U07.1 [facility] [address] [facility] [address] [place], [place] [id number] 08/17/2024 Grisel [place] Essential hypertensi on I10 ; Hyperlipidemia, unspecified hyperlipidemia type E78.5 ; Hypertriglyceridemia E78.1 ; IFG (impaired fasting glucose) R73.01 ; Acquired hypothyroidism E03.9 ; Vitamin D deficiency E55.9 ; Prostate cancer screening Z12.5 ; Gout, unspecified cause, unspecified chronicity, unspecified site M10.9 and Atrial fibrillation, unspecified type I48.91 [facility] [address] [place], [place] [id number] 11/18/2023 Grisel [place] Acute gastroenteriti s K52.9 [facility] [address] [place], [place] [id number] 03/29/2024 Grisel [place] Gout, unspecified ca use, unspecified chronicity, unspecified site M10.9 [facility] [address] [place], [place] [id number] 08/20/2024 Grisel [place] [facility] [address] [place], [place] [id number] 08/27/2024 Grisel [place] Assessments Encounter Date Diagnosis (ICD Code) Assessment [...] Of Treatment Next Appt Details Provider Name:Grisel Cates Franklin ry, 02/18/2025 09:15:00 AM, [address], [address], [place], [id number], Insurance Providers Payer Name Payer Address Payer Phone Subscriber Number Group Number Insured Name Patient Relationship to Insured Coverage Start Date Coverage End Date MEDICARE PART B [address] [address] [place] [id number] Lambert Mancia Self - patient is the insured [employer] INSURANCE [address] [place] [id number] Lambert Mancia Self - patient is the [...] Knee Replacement 06/2020 Hospitalization History Reason Date(Month/Year) [facility] 12/2015
[2024-09-13 10:01] LABS: PHA INR Fingerstick 2.4 (0.9-1.1)
== END 2024-09-13 10:09 ==
LOC: ACC 07:56
PROVIDERS: PCP Family Medicine; Visit Provider Physician Assistant
DX: I48.91 Unspecified atrial fibrillation (principal); Z79.01 Long term (current) use of anticoagulants
CPT/HCPCS: 85610; 99211; G0463

== ENCOUNTER 2024-10-25 07:50 | Outpatient (CLI) | payer MEDICARE, SELFPAY ==
--- OUTSIDE RECORDS SUMMARY | 2024-03-13 06:45 | XMS_ITS ---
Author Organization [facility] Address [address] [facility] [address] [place] [id number] Care Team Providers Care Jack Machine Operator Name Role Phone Grisel Scott Primary Care Provider GRISEL SCOTT Unavailable Unavailable Marcela Galeano Unavailable [phone] Allergies No Known Allergies Results Component Value [...] 03/13/2024 Encounters Encounter Location Date Provider Diagnosis [facility] [address] [place] [address] [address] [place] [id number] 03/13/2024 Marcela Galeano COVID-19 U07. 1 Assessments [...] Name:Grisel Reid , 02/18/2025 09:15:00 AM, 1210 [facility] 36 [facility], [address], [place], [phone], Progress Notes * JOSUE LambertDOB:1955 (69 yo M)Acc No.[id number]:03/13/2024 Progress Notes Patient: Lambert NELSON Provider: GIORGI Carter :1955 A ge:68 Y S ex:Male Date:03/13/2024 Address[facility] [address] [id number] Pcp:Grisel T Theodore Subjective: * Chief Complaints: * 1 . Poss flu. * HPI: E NT/respiratory: 68 year old male presents with c/o sore throat. c/o cough P t sts he has a bad cough and [...] A -Fib- [facility] 12/2015. * Family History: F ather: . [...] detector use: yes. Marital Status: . 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 Past smoking status: no. Recreational drug use: [...] G 2211 Complex e/[place], [address] Flu Test- Nasal Swab, Modifiers: QW , 73565 COVID TEST IN HOUSE, Modifiers: QW * Follow Up: p rn * Images: Billing Information: * Visit Code: 60433 Office Visit, Est Pt., Level 3. * Procedure Codes: G2211 Complex e/[place]. [address] Flu Test- Nasal Swab. Modifiers: QW 03117 COVID TEST IN HOUSE. Modifiers: QW * Electronic signature of Charlotte nowak Waleska , JORDIN on 10/25/2024 at 07:53 AM EDT Sign off status: Pending * Provider: GIORGI Carter Date: 1 Generated for Mark scott/Radha/Raheem on: 0 10/25/2024 07:53 AM EDT History and Physical Notes * [...]
--- OUTSIDE RECORDS SUMMARY | 2024-08-17 06:30 | XMS_ITS ---
Author Organization [facility] Address [address] [place] [id number] Care Team Providers Care Wigs Salesperson Name Role Phone Grisel Scott Primary Care [...] 112 Performing Lab: Notes/Report: Test performed by [facility] [address] [place] [address] , [address], [place] [address] Joaquín Little MD, Retail Pharmacy Merchandiser CLIA: [id number] Sodium 139 135-145 mmol/L Potassium 4.4 3.5-5.3 [...] Interpretation:Normal Performing Lab: Notes/Report: Test performed by [facility] [address] [place] [address] , [place] [address] Joaquín Little MD, Retail Pharmacy Merchandiser CLIA: [id number] Thyroxine Free (free T4) 1.04 0.86-1.76 ng/dL P-Lipid Panel Reviewed date:08/20/2024 01:14:17 PM Interpretation:trigs 311. hdl 36, non-hdl 139 Performing Lab: Notes/Report: Test performed by [facility] [employer] [address] [place] [address] , [address], [place] [address] Joaquín Little MD, Retail Pharmacy Merchandiser CLIA: [id number] Cholesterol 175 <200 mg/dL Triglycerides 311 <150 [...] Interpretation:Normal Performing Lab: Notes/Report: Test performed by [facility] , [address], [place] [address] Joaquín Little MD, Retail Pharmacy Merchandiser CLIA: [id number] PSA 0.83 <4.00 ng/mL Please note this is an ultrasensitive PSA assay with a lower limit of detection of 0.014 ng/mL. This test is performed by the Venancio ECLIA methodology. Values obtained with different assay methods or kits cannot be directly compared. P-TSH Reviewed date:08/20/2024 01:14:17 PM Interpretation:Normal Performing Lab: Notes/Report: Test performed by [employer] [facility] , [address], [place] [address] Joaquín Little MD, Retail Pharmacy Merchandiser CLIA: [id number] TSH 4.30 0.43-5.25 mU/L P-Microalbumin/Creatinine, R andom Urine Sample Reviewed date:08/20/2024 01:14:17 PM Interpretation:Normal Performing Lab: Notes/Report: Test performed by [employer] [facility] , [address], [place] [address] Joaquín Little MD, Retail Pharmacy Merchandiser CLIA: [id number] Albumin/Creatinine Ratio, Urine 8 0-30 ug/m g Microalbumin, Urine, Random 1.5 Creatinine, Urine 195.3 P-Uric Acid Reviewed date:08/20/2024 01:14:17 PM Interpretation:Normal Performing Lab: Notes/Report: Test performed by [facility] [address] , [address], [place] [address] Joaquín Little MD, Retail Pharmacy Merchandiser CLIA: [id number] Uric Acid 6.0 3.4-8.0 mg/dL P-Vitamin D 25-Hydroxy Reviewed date:08/20/2024 01:14:17 PM Interpretation:38 Performing Lab: Notes/Report: Test performed by [facility] [address] [facility] , [address], [place] [address] Joaquín Little MD, Retail Pharmacy Merchandiser CLIA: [id number] Vitamin D 25-Hydroxy 38.0 30.0-100.0 ng/mL Interpretation [...] Provider Diagnosis Ernesto [address] [facility] [address] [place] [id number] 08/17/2024 Grisel Scott Essential hypertensi on I10 [...] [address], [address], [place], [place], [id number], Progress Notes * Lambert MANCIADOB:1955 (69 yo M)Acc No.[id number]:08/17/2024 Progress Notes Patient: Lambert NELSON Provider: Vera Scott M.D. :1955 A ge:68 Y S ex:Male Date:08/17/2024 Address:[address] [place] [address] [facility] [id number] Subjective: * Chief Complaints: * 1 . [...] * Hospitalization/Major Diagno stic Procedure: A -Fib- [facility] 12/2015. * Family History: F ather: [...] detector use: yes. Marital Status: . 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 Past smoking status: no. Recreational drug use: [...] G 2211 Complex e/[place], [address] GLUCOSE TEST, 47888 GLYCATED HEMOGLOBIN TEST, Modifiers: QW , G8950 PREHTN/HTN BP DOC INDCD F/U DOC, G8752 MOST RECENT SYSTOLIC BP < 140MM HG, G8754 MOST RECENT DIASTOLIC BP < 90MM HG, 3044F HG A1C LEVEL LT 7.0%, 1036F TOBACCO NON-USER * Follow Up: 6 Months * Images: Billing Information: * Visit Code: 55463 Office Visit, Est Pt., Level 4. * Procedure Codes: G2211 Complex e/[place]. [address] GLUCOSE TEST. 93059 GLYCATED HEMOGLOBIN TEST. Modifiers: QW G8950 PREHTN/HTN BP DOC INDCD F/U DOC. G8752 MOST RECENT SYSTOLIC BP < 140MM HG. G8754 MOST RECENT DIASTOLIC BP < 90MM HG. 3044F HG A1C LEVEL LT 7.0%. 1036F TOBACCO NON-USER. * Electronic signature of Zeenat Scott MD on 10/25/2024 at 07:53 AM EDT Sign off status: Pending * Provider: Vera Scott M.D. Date: 0 08/17/2024 Generated for Mark scott/Radha/Deepsmitting on: 0 10/25/2024 07:53 AM EDT History [...]
--- OUTSIDE RECORDS SUMMARY | 2024-10-25 07:54 | XMS_ITS | Clinical Summary ---
Author Organization [facility] [place] Address [address] [facility] [address] [place] [address] Phone Care Team Providers Care Industrial Electrical Engineer Name Role Phone Feliciano Scott MD Primary Care Provider [phone] Kody Shukla MD Unavailable [phone] Allergies No known active allergies Medications allopurinol [...] 60-74 years 1-dose series) 2013 COVID-19 Vaccine (1 - 2023-2 5 season) 2023 Influenza Vaccine (#1) 2024 Hepatitis B Vaccine Aged Out No longe r eligible based on patient's age to complete this topic Meningococcal B Vaccine Aged Out No l onger eligible based on patient's age to complete this topic Insurance [facility] CHOICE PLUS [id number] Member Subscriber Plan / Payer (Ef fective 2016-Present) Name:Lambert Mancia Relation to Subscriber:Self Name:Lambert Mancia Payer ID:[id number] (NAIC) Type:Not on file Address: [place] [id number] Care Teams Industrial Electrical Engineer Relationship Specialty Start Date End Date Feliciano Scott MD [address] [place] [id number] PCP - General Family Medicine 10/07/16 Kody Shukla MD [address] [place] [address] [place] [address] Consulting Physician Internal Medicine - Clinical Cardiac Electrophysiology 10/07/16
--- OUTSIDE RECORDS SUMMARY | 2024-10-25 07:54 | XMS_ITS | Patient Health Record ---
[facility] Organization [facility] Address [address] [place] [id number] Care Team Providers Care Network Relay Tester Name Role Phone Grisel Scott Primary Care Provider [phone] GRISEL SCOTT Unavailable Unavailable Marcela Galeano Unavailable [phone] Allergies No Known Allergies Results Component Value [...] - 6.5 % P-Comprehensive Metabolic Pa nasima ([facility]) Reviewed date:08/20/2024 01:14:17 PM Interpretation:gluc 112 Performing Lab: Notes/Report: Test performed by [employer] [email or web address] [facility] , [address], [place] [address] Joaquín Little MD, General Dentist/Owner CLIA: [id number] Sodium 139 135-145 mmol/L Potassium 4.4 3.5-5.3 [...] Interpretation:Normal Performing Lab: Notes/Report: Test performed by [facility] [address] [place] [address] , [place] [address] Joaquín Little MD, General Dentist/Owner CLIA: [id number] Thyroxine Free (free T4) 1.04 0.86-1.76 ng/dL P-Lipid Panel Reviewed date:08/20/2024 01:14:17 PM Interpretation:trigs 311. hdl 36, non-hdl 139 Performing Lab: Notes/Report: Test performed by [facility] [address] [place] [address] , [facility] [place] [address] Joaquín Little MD, General Dentist/Owner CLIA: [id number] Cholesterol 175 <200 mg/dL Triglycerides 311 <150 [...] Interpretation:Normal Performing Lab: Notes/Report: Test performed by [facility] [address] [place] , [place] [address] Joaquín Little MD, General Dentist/Owner CLIA: [id number] PSA 0.83 <4.00 ng/mL Please note this is an ultrasensitive PSA assay with a lower limit of detection of 0.014 ng/mL. This test is performed by the Venancio ECLIA methodology. Values obtained with different assay methods or kits cannot be directly compared. P-TSH Reviewed date:08/20/2024 01:14:17 PM Interpretation:Normal Performing Lab: Notes/Report: Test performed by [facility] [address] [place] [address] , [address], [place] [address] Joaquín Little MD, General Dentist/Owner CLIA: [id number] TSH 4.30 0.43-5.25 mU/L P-Microalbumin/Creatinine, R andom Urine Sample Reviewed date:08/20/2024 01:14:17 PM Interpretation:Normal Performing Lab: Notes/Report: Test performed by [facility] [address] [place] [address] , [address], [place] [address] Joaquín Little MD, General Dentist/Owner CLIA: [id number] Albumin/Creatinine Ratio, Urine 8 0-30 ug/m g Microalbumin, Urine, Random 1.5 Creatinine, Urine 195.3 P-Uric Acid Reviewed date:08/20/2024 01:14:17 PM Interpretation:Normal Performing Lab: Notes/Report: Test performed by [facility] [address] [place] [address] [place] [address] Joaquín Little MD, General Dentist/Owner CLIA: [id number] Uric Acid 6.0 3.4-8.0 mg/dL P-Vitamin D 25-Hydroxy Reviewed date:08/20/2024 01:14:17 PM Interpretation:38 Performing Lab: Notes/Report: Test performed by [facility] [address] [place] [address] [place] [address] Joaquín Little MD, General Dentist/Owner CLIA: [id number] Vitamin D 25-Hydroxy 38.0 30.0-100.0 ng/mL Interpretation [...] Status Risk Notes Problem Vitamin D deficiency (78815349) Vitamin D deficiency (E55.9) Active confirmed Problem Essential hypertension (45999659) Essential hypertension (I10) Active confirmed Problem Hypertriglyceridemia (244915757) Hypertriglyceridemia (E78.1) Active confirmed Problem Arthropathy of lumba r facet joint (420845895) Lumbar facet arthropathy (M47.816) Active confirmed Problem Degeneration of lumbar intervertebral disc (16240321) Lumbar degenerative disc disease (M51.36) Active confirmed Problem Acquired hypothyroidism (507741391) Acquired hypothyroidism (E03.9) Active confirmed Problem Displacement of lumbar intervertebral disc without myelopathy (44781032) Bulging lumbar disc (M51.26) Active confirmed Problem Gout (80541916) Gout, unspecifie d cause, unspecified chronicity, unspecified site (M10.9) Active confirmed Problem History of nutritional deficiency (55397003622055) History of vitamin D deficiency (Z86.39) Active confirmed Problem Atrial fibrillation (12962087) Atrial fibrillation, unspecified type (I48.91) Active confirmed Problem Osteoarthritis of knee (656708432) Primary osteoarthritis of left knee (M17.12) Active confirmed Problem Hyperlipidaemia (92133393) Hyperlipidemia, unspecified hyperlipidemia type (E78.5) Active confirmed Problem Sciatica (18980225) Acute left-s ided low back pain with left-sided sciatica (M54.42) Active confirmed Problem Impaired fasting glycaemia (351512337) IFG (impaired fasting glucose) (R73.01) Active confirmed Problem Arthritis of left knee (2851361502722118) Arthritis of left knee (M17.12) Active confirmed Vital Signs Heart Rate 60 /min 08/17/2024 Blood pressure diastolic 72 mm Hg 08/17/2024 Height 69.75 in 08/17/2024 Blood pressure systolic 134 mm Hg 08/17/2024 Weight 271.0 lbs 08/17/2024 BMI 39.16 kg/m2 08/17/2024 Encounters Encounter Location Date Provider Diagnosis [facility] [address] [facility] [address] [place], [place] [id number] 11/18/2023 Grisel Scott Acute gastroenteriti s K52.9 [facility] [address] [facility] [address] [place], [place] [id number] 03/13/2024 Marcelaosiel Galeano COVID-19 U07.1 [facility] [address] [facility] [address] [place], [place] [id number] 08/17/2024 Grisel [place] Essential hypertensi on I10 ; Hyperlipidemia, unspecified hyperlipidemia type E78.5 ; Hypertriglyceridemia E78.1 ; IFG (impaired fasting glucose) R73.01 ; Acquired hypothyroidism E03.9 ; Vitamin D deficiency E55.9 ; Prostate cancer screening Z12.5 ; Gout, unspecified cause, unspecified chronicity, unspecified site M10.9 and Atrial fibrillation, unspecified type I48.91 [facility] [address] [place], [place] [id number] 11/18/2023 Grisel [place] Acute gastroenteriti s K52.9 [facility] [address] [place], [place] [id number] 03/29/2024 Grisel [place]ro[place] Gout, unspecified ca use, unspecified chronicity, unspecified site M10.9 [facility] [address] [place], [place] [id number] 08/20/2024 Grisel [place]rogg[place] [facility] [address] [place], [place] [id number] 08/27/2024 Grisel Scroggins Assessments Encounter Date Diagnosis (ICD Code) Assessment [...] [address], [place], [id number], Insurance Providers Payer Name Payer Address Payer Phone Subscriber Number Group Number Insured Name Patient Relationship to Insured Coverage Start Date Coverage End Date MEDICARE PART B [address] [address] [place] [id number] Lambert Mancia Self - patient is the insured [facility] INSURANCE [address] [place] [id number] [phone] [id number] Lambert Mancia Self - patient is the [...] Knee Replacement 06/2020 Hospitalization History Reason Date(Month/Year) [facility] 12/2015
--- OUTSIDE RECORDS SUMMARY | 2024-10-25 07:54 | XMS_ITS | Clinical Summary ---
Author Organization Healthcare Address [address] [id number] Care Team Providers Care Case Managers Name Role Phone Feliciano Scott MD Primary Care Provider [phone] Social History Tobacco Use Types Packs/Day Years [...] (2 of 2 - PPSV23) 12/10/2020 12/11/2019 [id number] Vaccine (2 - 20 24-25 season) 2023 [...] to complete this topic Insurance [place] [id number] MEDICARE Care Teams Case Managers Relationship Specialty Start Date End Date Feliciano Scott MD [address] [facility] [address] [place] [address] PCP - General 07/25/20
[2024-10-25 09:13] LABS: PHA INR Fingerstick 2.4 (0.9-1.1)
== END 2024-10-25 09:16 ==
LOC: ACC 07:52
PROVIDERS: PCP Family Medicine; Visit Provider Physician Assistant
DX: I48.91 Unspecified atrial fibrillation (principal); Z79.01 Long term (current) use of anticoagulants
CPT/HCPCS: 85610; 99211; G0463

== ENCOUNTER 2024-12-05 08:01 | Outpatient (CLI) | payer MEDICARE, SELFPAY ==
--- OUTSIDE RECORDS SUMMARY | 2023-11-18 05:30 | XMS_ITS ---
Author Organization [facility] Address [address] [place] [phone] Care Team Providers Care Security Sales Manager Name Role Phone Grisel Scott Primary Care [...] 11/18/2023 Encounters Encounter Location Date Provider Diagnosis [facility] [address] [facility] 36 [facility] [address] [place] [phone] 11/18/2023 Grisel Scott Acute gastroenteriti s K52.9 [...] Reid ry, 02/18/2025 09:15:00 AM, [address] [facility] 36 [facility], [address], [place], [phone], Progress Notes * Lambert MANCIADOB:1955 (69 yo M)Acc No.[id number]:11/18/2023 Progress Notes Patient: Lambert NELSON Provider: Vera Scott M.D. :1955 A ge:68 Y S ex:Male Date:11/18/2023 Address:[place], [id number] Subjective: * Chief Complaints: * 1 . [...] 06/2020. * Hospitalization/Major Diagno stic Procedure: A -[facility] 12/2015. * Family History: F ather: . [...] detector use: yes. Marital Status: . 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 Past smoking status: no. Recreational drug use: [...] G 2211 Complex e/[place], [address] CAPILLARY BLOOD DRAW, 34477 CBC WITH AUTO DIFF * Follow Up: v ia phone to report progress * Images: Billing Information: * Visit Code: 69887 Office Visit, Est Pt., Level 3. * Procedure Codes: G2211 Complex e/[place]. [address] CAPILLARY BLOOD DRAW. 46519 CBC WITH AUTO DIFF. * Electronic signature of Zeenat Scott MD on 12/05/2024 at 08:06 AM EDT Sign off status: Pending * Provider: Vera Scott M.D. Date: 11/18/2023 Generated for Mark scott/Radha/eTransmitting on: 12/05/2024 08:06 AM EDT History and Physical Notes * HPI (History [...]
--- OUTSIDE RECORDS SUMMARY | 2023-11-22 05:00 | XMS_ITS ---
Author Organization [facility] Address [address] [facility] 36 [facility] [address] [place] [phone] Care Team Providers Care Grade Recorder Name Role Phone Grisel Scott Primary Care Provider GRISEL SCOTT Unavailable Unavailable Allergies No Known Allergies REASON FOR VISIT 6 months Encounters Encounter Location Date Provider Diagnosis [place] [address] [place] [phone] 11/22/2023 Grisel Scott Plan Of Treatment Next Appt Details Provider Name:Grisel Reid ry, 02/18/2025 09:15:00 AM, [address], [address], [place], [phone], Progress Notes * Lambert MANCIADOB:1955 (69 yo M)Acc No.[id number]:11/22/2023 Progress Notes Patient: Lambert NELSON Provider: Vera [...] detector use: yes. Marital Status: . 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 Past smoking status: no. Recreational drug use: no. Alcohol: Type: , Frequency:socially ,Years: , Determination:. * Allergies: N .K.D.A. Objective: * Vitals: Assessment: Plan: * Treatment: * Images: Billing Information: * Visit Code: * Procedure Codes: * Electronic signature of Zeenat Scott MD on 12/05/2024 at 08:07 AM EDT Sign off status: Pending * Provider: Vera Scott M.D. Date: 11/22/2023 Generated for Mark scott/Radha/Raheem on: 12/05/2024 08:07 AM EDT History and Physical Notes * HPI (History of Present Illness) Category Sub-Category Detail Notes Category Not es Endocrinology Hypothyroidism Pt here to f/u Cardiology Blood Pressure Elevated Pt here for 6 mo f/u on hypertension, states he is doing well and does not have any concerns Hyperlipidemia Pt is fasting today
--- OUTSIDE RECORDS SUMMARY | 2024-03-13 06:45 | XMS_ITS ---
Author Organization [facility] Address [address] [facility] [address] [place] [phone] Care Team Providers Care Escalator Operator Name Role Phone Grisel Scott Primary Care Provider GRISEL SCOTT Unavailable Unavailable Marclea Galeano Unavailable [phone] Allergies No Known Allergies Results Component Value [...] 03/13/2024 Encounters Encounter Location Date Provider Diagnosis [facility] [address] [place] [address] [address] [place] [phone] 03/13/2024 Marcela Galeano COVID-19 U07. 1 Assessments [...] Name:Grisel Reid , 02/18/2025 09:15:00 AM, 1210 [facility] 36 [facility], [address], [place], [phone], Progress Notes * JOSUE LambertDOB:1955 (69 yo M)Acc No.[id number]:03/13/2024 Progress Notes Patient: Lambert NELSON Provider: GIORGI Carter :1955 A ge:68 Y S ex:Male Date:03/13/2024 Address:[facility] [address] [id number] Pcp:Grisel T [place] Subjective: * Chief Complaints: * 1 . [...] * Hospitalization/Major Diagno stic Procedure: A -Fib- [facility] 12/2015. * Family History: F ather: . [...] detector use: yes. Marital Status: . 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 Past smoking status: no. Recreational drug [...] , Provider reviewed results while patient in office.Galeano,Marcela 03/13/2024 8:42:28 PM > * Procedure Codes: G 2211 Complex e/[place], [address] Flu Test- Nasal Swab, Modifiers: QW , 31461 COVID TEST IN HOUSE, Modifiers: QW * Follow Up: p rn * Images: Billing Information: * Visit Code: 64012 Office Visit, Est Pt., Level 3. * Procedure Codes: G2211 Complex e/[place]. [address] Flu Test- Nasal Swab. Modifiers: QW 80467 COVID TEST IN HOUSE. Modifiers: QW * Electronic signature of Charlotte nowak JORDIN Galeano on 12/05/2024 at 08:09 AM EDT Sign off status: Pending * Provider: GIORGI Carter Date: 1 Generated for Mark scott/Radha/Raheem on: 0 12/05/2024 08:09 AM EDT History and Physical Notes * [...]
--- OUTSIDE RECORDS SUMMARY | 2024-08-17 06:30 | XMS_ITS ---
Author Organization [facility] Address [address] [place] [id number] Care Team Providers Care Pre Algebra Teacher Name Role Phone Grisel Scott Primary Care Provider [phone] GRISEL SCOTT Unavailable Unavailable Allergies No Known [...] 112 Performing Lab: Notes/Report: Test performed by [facility] [address] [place] [address] , [address], [place] [address] Joaquín Little MD, Visor Installer CLIA: [id number] Sodium 139 135-145 mmol/L Potassium 4.4 3.5-5.3 [...] Interpretation:Normal Performing Lab: Notes/Report: Test performed by [facility] [address] [place] [address] , [place] [address] Joaquín Little MD, Visor Installer CLIA: [id number] Thyroxine Free (free T4) 1.04 0.86-1.76 ng/dL P-Lipid Panel Reviewed date:08/20/2024 01:14:17 PM Interpretation:trigs 311. hdl 36, non-hdl 139 Performing Lab: Notes/Report: Test performed by [facility] [address] [place] [address] , [address], [place] [address] Joaquín Little MD, Visor Installer CLIA: [id number] Cholesterol 175 <200 mg/dL Triglycerides 311 <150 [...] Interpretation:Normal Performing Lab: Notes/Report: Test performed by [facility] , [address], [place] [address] Joaquín Little MD, Visor Installer CLIA: [id number] PSA 0.83 <4.00 ng/mL Please note this is an ultrasensitive PSA assay with a lower limit of detection of 0.014 ng/mL. This test is performed by the Venancio ECLIA methodology. Values obtained with different assay methods or kits cannot be directly compared. P-TSH Reviewed date:08/20/2024 01:14:17 PM Interpretation:Normal Performing Lab: Notes/Report: Test performed by [facility] , [address], [place] [address] Joaquín Little MD, Visor Installer CLIA: [id number] TSH 4.30 0.43-5.25 mU/L P-Microalbumin/Creatinine, R andom Urine Sample Reviewed date:08/20/2024 01:14:17 PM Interpretation:Normal Performing Lab: Notes/Report: Test performed by [facility] , [address], [place] [address] Joaquín Little MD, Visor Installer CLIA: [id number] Albumin/Creatinine Ratio, Urine 8 0-30 ug/m g Microalbumin, Urine, Random 1.5 Creatinine, Urine 195.3 P-Uric Acid Reviewed date:08/20/2024 01:14:17 PM Interpretation:Normal Performing Lab: Notes/Report: Test performed by [facility] [address] , [address], [place] [address] Joaquín Little MD, Visor Installer CLIA: [id number] Uric Acid 6.0 3.4-8.0 mg/dL P-Vitamin D 25-Hydroxy Reviewed date:08/20/2024 01:14:17 PM Interpretation:38 Performing Lab: Notes/Report: Test performed by [facility] [address] [facility] , [address], [place] [address] Joaquín Little MD, Visor Installer CLIA: [id number] Vitamin D 25-Hydroxy 38.0 30.0-100.0 ng/mL Interpretation [...] Provider Diagnosis Ernesto [address] [facility] [address] [place] [id number] 08/17/2024 Grisel Scott Essential hypertensi on I10 [...] [address], [address], [place], [place], [id number], Progress Notes * Lambert MANCIADOB:1955 (69 yo M)Acc No.[id number]:08/17/2024 Progress Notes Patient: Lambert NELSON Provider: Vera Scott M.D. :1955 A ge:68 Y S ex:Male Date:08/17/2024 Address:[address] [place] [address] [facility], [id number] Subjective: * Chief Complaints: * 1 . [...] * Hospitalization/Major Diagno stic Procedure: A -Fib- [facility] 12/2015. * Family History: F ather: [...] detector use: yes. Marital Status: . 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 Past smoking status: no. Recreational drug [...] G 2211 Complex e/[place], [address] GLUCOSE TEST, 07689 GLYCATED HEMOGLOBIN TEST, Modifiers: QW , G8950 PREHTN/HTN BP DOC INDCD F/U DOC, G8752 MOST RECENT SYSTOLIC BP < 140MM HG, G8754 MOST RECENT DIASTOLIC BP < 90MM HG, 3044F HG A1C LEVEL LT 7.0%, 1036F TOBACCO NON-USER * Follow Up: 6 Months * Images: Billing Information: * Visit Code: 84703 Office Visit, Est Pt., Level 4. * Procedure Codes: G2211 Complex e/[place]. [address] GLUCOSE TEST. 58506 GLYCATED HEMOGLOBIN TEST. Modifiers: QW G8950 PREHTN/HTN BP DOC INDCD F/U DOC. G8752 MOST RECENT SYSTOLIC BP < 140MM HG. G8754 MOST RECENT DIASTOLIC BP < 90MM HG. 3044F HG A1C LEVEL LT 7.0%. 1036F TOBACCO NON-USER. * Electronic signature of Zeenat Scott MD on 12/05/2024 at 08:05 AM EDT Sign off status: Pending * Provider: Vera Scott M.D. Date: 0 08/17/2024 Generated for Mark scott/Radha/Deepsmitting on: 0 12/05/2024 08:05 AM EDT History and Physical Notes * [...]
--- OUTSIDE RECORDS SUMMARY | 2024-12-05 08:08 | XMS_ITS | Clinical Summary ---
Author Organization Healthcare Address [address] [phone] Care Team Providers Care Brush Operator Name Role Phone Feliciano Scott MD Primary Care Provider [phone] Social History Tobacco Use Types Packs/Day Years [...] 50 + Years (2 of 2 - PCV20 or PCV21) 12/10/2020 12/11/2019 [id number] Vaccine (2 - 20 25-26 season) 2024 05/24/2020 UKY-Influenza Vaccine (#1) 2024 12/11/2019 [id number],Tdap,and [...] to complete this topic Insurance [place] [id number] MEDICARE Care Teams Brush Operator Relationship Specialty Start Date End Date Feliciano Scott MD [address] [facility] [address] [place] [address] PCP - General 07/25/20
--- OUTSIDE RECORDS SUMMARY | 2024-12-05 08:08 | XMS_ITS | Patient Health Record ---
[facility] Address [address] [place] [id number] Care Team Providers Care Cement Mason Maintenance Name Role Phone Grisel Scott Primary Care Provider [phone] GRISEL SCOTT Unavailable Unavailable Marcela Galeano Unavailable [phone] Allergies No Known Allergies Results Component Value [...] 112 Performing Lab: Notes/Report: Test performed by [facility] ([facility] [address] [place] [address] , [address], [place] [address] Joaquín Little MD, Order Management Specialist CLIA: [id number] Sodium 139 135-145 mmol/L Potassium 4.4 3.5-5.3 [...] Interpretation:Normal Performing Lab: Notes/Report: Test performed by [facility] ([facility] [address] [place] [address] , [address], [place] [address] Joaquín Little MD, Order Management Specialist CLIA: [id number] Thyroxine Free (free T4) 1.04 0.86-1.76 ng/dL P-Lipid Panel Reviewed date:08/20/2024 01:14:17 PM Interpretation:trigs 311. hdl 36, non-hdl 139 Performing Lab: Notes/Report: Test performed by [facility] ([facility]) [address] [place] [address] , [address], [place] [address] Joaquín Little MD, Order Management Specialist CLIA: [id number] Cholesterol 175 <200 mg/dL Triglycerides 311 <150 [...] Interpretation:Normal Performing Lab: Notes/Report: Test performed by [facility] [place] , [address], [place] [address] Joaquín Little MD, Order Management Specialist CLIA: [id number] PSA 0.83 <4.00 ng/mL Please note this is an ultrasensitive PSA assay with a lower limit of detection of 0.014 ng/mL. This test is performed by the [employer] ECLIA methodology. Values obtained with different assay methods or kits cannot be directly compared. P-TSH Reviewed date:08/20/2024 01:14:17 PM Interpretation:Normal Performing Lab: Notes/Report: Test performed by [facility] [address] , [address], [place] [address] Joaquín Little MD, Order Management Specialist CLIA: [id number] TSH 4.30 0.43-5.25 mU/L P-Microalbumin/Creatinine, R andom Urine Sample Reviewed date:08/20/2024 01:14:17 PM Interpretation:Normal Performing Lab: Notes/Report: Test performed by [facility] [place] , [address], [place] [address] Joaquín Little MD, Order Management Specialist CLIA: [id number] Albumin/Creatinine Ratio, Urine 8 0-30 ug/m g Microalbumin, Urine, Random 1.5 Creatinine, Urine 195.3 P-Uric Acid Reviewed date:08/20/2024 01:14:17 PM Interpretation:Normal Performing Lab: Notes/Report: Test performed by [facility] ([facility] [address] [place] [address] , [address], [place] [address] Joaquín Little MD, Order Management Specialist CLIA: [id number] Uric Acid 6.0 3.4-8.0 mg/dL P-Vitamin D 25-Hydroxy Reviewed date:08/20/2024 01:14:17 PM Interpretation:38 Performing Lab: Notes/Report: Test performed by [facility] ([facility] [address] [place] [address] , [address], [place] [address] Joaquín Little MD, Order Management Specialist CLIA: [id number] Vitamin D 25-Hydroxy 38.0 30.0-100.0 ng/mL Interpretation of Vitamin D 25 OH: < 20 ng/mL - Deficiency 20 - 29 ng/mL - Insufficiency 30 - 100 ng/mL - Sufficiency > 100 ng/mL - Super-therapeutic- toxicity may occur above this level. Clinical correlation required. Influenza Screen (in house) Reviewed date:03/13/2024 08:42:28 PM Interpretation:Negative Performing Lab: Notes/Report: Negative results Neg Covid test (in house) Reviewed date:03/13/2024 08:42:09 PM Interpretation:Positive Performing Lab: Notes/Report: Positive Result: Pos Medications Medication SIG (Take, Route, Frequency, Duration) [...] Status Risk Notes Problem Vitamin D deficiency (19108729) Vitamin D deficiency (E55.9) Active confirmed Problem Essential hypertension (23092075) Essential hypertension (I10) Active confirmed Problem Hypertriglyceridemia (186287066) Hypertriglyceridemia (E78.1) Active confirmed Problem Arthropathy of lumba r facet joint (262893583) Lumbar facet arthropathy (M47.816) Active confirmed Problem Degeneration of lumbar intervertebral disc (75935814) Lumbar degenerative disc disease (M51.36) Active confirmed Problem Acquired hypothyroidism (171600973) Acquired hypothyroidism (E03.9) Active confirmed Problem Displacement of lumbar intervertebral disc without myelopathy (07028437) Bulging lumbar disc (M51.26) Active confirmed Problem Gout (91841968) Gout, unspecifie d cause, unspecified chronicity, unspecified site (M10.9) Active confirmed Problem History of nutritional deficiency (53350598395479) History of vitamin D deficiency (Z86.39) Active confirmed Problem Atrial fibrillation (79370052) Atrial fibrillation, unspecified type (I48.91) Active confirmed Problem Osteoarthritis of knee (387245893) Primary osteoarthritis of left knee (M17.12) Active confirmed Problem Hyperlipidaemia (92869603) Hyperlipidemia, unspecified hyperlipidemia type (E78.5) Active confirmed Problem Sciatica (68471024) Acute left-s ided low back pain with left-sided sciatica (M54.42) Active confirmed Problem Impaired fasting glycaemia (141395140) IFG (impaired fasting glucose) (R73.01) Active confirmed Problem Arthritis of left knee (4149398755120937) Arthritis of left knee (M17.12) Active confirmed Vital Signs Heart Rate 60 /min 08/17/2024 Blood pressure diastolic 72 mm Hg 08/17/2024 Height 69.75 in 08/17/2024 Blood pressure systolic 134 mm Hg 08/17/2024 Weight 271.0 lbs 08/17/2024 BMI 39.16 kg/m2 08/17/2024 Encounters Encounter Location Date Provider Diagnosis [facility] [address] [facility] [address] [place], [place] [id number] 03/13/2024 Marcela Galeano COVID-19 U07.1 [facility] [address] [address] [place], [place] [id number] 08/17/2024 Grisel Osceola Essential hypertensi on I10 ; Hyperlipidemia, unspecified hyperlipidemia type E78.5 ; Hypertriglyceridemia E78.1 ; IFG (impaired fasting glucose) R73.01 ; Acquired hypothyroidism E03.9 ; Vitamin D deficiency E55.9 ; Prostate cancer screening Z12.5 ; Gout, unspecified cause, unspecified chronicity, unspecified site M10.9 and Atrial fibrillation, unspecified type I48.91 [facility] [address] [facility] [address] [facility] [address] [place], [place] [id number] 03/29/2024 Grisel Osceola Gout, unspecified ca use, unspecified chronicity, unspecified site M10.9 [facility] [address] [facility] 36 [facility] [address] [place], [place] [id number] 08/20/2024 Grisel Osceola [facility] [address] [facility] [address] [place], [place] [id number] 08/27/2024 Grisel Osceola Assessments Encounter Date Diagnosis (ICD Code) Assessment [...] Treatment Next Appt Details Provider Name:Grisel Reid , 02/18/2025 09:15:00 AM, [address] [facility], [address], [place], [place], [id number], Insurance Providers Payer Name Payer Address Payer Phone Subscriber Number Group Number Insured Name Patient Relationship to Insured Coverage Start Date Coverage End Date MEDICARE PART B [address] [address] [place] [id number] Lambert Mancia Self - patient is the insured [employer] [address] [place] [id number] [phone] [id number] Lambert Mancia Self - patient is the insured Medications Administered Medication Instructions Date of Administration Dosage Notes Dexamethasone 05/10/2006 1 mL Dexamethasone 07/22/2006 8 mg Dexamethasone 08/31/2014 1 mL Medical (General) History Medical History History ICD Code Hypertension Hyperlipidemia Gout Rt Shoulder Pain- treated by Dr. Scherer Vitamin D deficiency Colon polyps Atrial fibrillation, Dx: 2016 Impaired fasting glucose Surgical History Surgery Date(Month/Year) Total Lt Knee Replacement 06/2020 CardioVersion x 2 2015 Colonoscopy 2015 Hospitalization History Reason Date(Month/Year) [facility] 12/2015
--- OUTSIDE RECORDS SUMMARY | 2024-12-05 08:10 | XMS_ITS | Clinical Summary ---
Author Organization [facility] Address [address] [facility] [address] [place] [address] Phone Care Team Providers Care Safety And Security Manager Name Role Phone Feliciano Scott MD Primary Care Provider + [phone] Kody Shukla MD Unavailable [phone] Allergies No known active allergies Medications allopurinol [...] COVID-19 Vaccine (1 - 2023-2 5 season) 2024 Influenza Vaccine (#1) 2024 Hepatitis B Vaccine Aged Out No longe r eligible based on patient's age to complete this topic Meningococcal B Vaccine Aged Out No l onger eligible based on patient's age to complete this topic Insurance [facility] [id number] Member Subscriber Plan / Payer (Ef fective 2016-Present) Name:Lambert Mancia Relation to Subscriber:Self Name:Lambert Mancia Payer ID:[id number] (NAIC) Type:Not on file Address: [place] [id number] Care Teams Safety And Security Manager Relationship Specialty Start Date End Date Feliciano Scott MD [address] [place] [id number] PCP - General Family Medicine 10/07/16 Kody Shukla MD [address] [place] [address] [place] [address] Consulting Physician Internal Medicine - Clinical Cardiac Electrophysiology 10/07/16
[2024-12-05 08:21] LABS: PHA INR Fingerstick 2.7 (0.9-1.1)
== END 2024-12-05 08:24 ==
LOC: ACC 08:03
PROVIDERS: PCP Family Medicine; Visit Provider Physician Assistant
DX: I48.91 Unspecified atrial fibrillation (principal); Z79.01 Long term (current) use of anticoagulants
CPT/HCPCS: 85610; 99211; G0463

== ENCOUNTER 2025-01-16 08:00 | Outpatient (CLI) | payer MEDICARE, SELFPAY ==
--- OUTSIDE RECORDS SUMMARY | 2023-11-18 04:30 | XMS_ITS ---
Author Organization [facility] Address [address] [place] [phone] Care Team Providers Care Medical Laboratory Technicians Name Role Phone Grisel Scott Primary Care Provider GRISEL SCOTT Unavailable Unavailable Allergies No Known Allergies Results Component Value Reference Range Notes CBC Fingerstick (in house) Reviewed date:11/21/2023 03:08:26 PM Interpretation: Performing Lab: Notes/Report: wbc 14.2 3.5 - 10 lym 15.6% 15 - 50 mid 4.2% 2 - 15 gran 80.2% 35 - 80 rbc 4.61 3.5 - 5.5 hgb 14.1 11.5 - 16.5 hct 41.8 35 - 55 mcv 90.8 75 - 100 mch 30.7 25 - 35 mchc 33.8 31 - 38 plat 161 100 - 400 REASON FOR VISIT Vomiting & Diarrhea Medications Medication SIG (Take, Route, Frequency, Duration) Notes Start Date End Date Status Indomethacin 50 MG 1 cap(s) orally 3 ti mes a day as needed; Duration: 30 day(s) Active Pravastatin Sodium 40 MG 1 tab(s) orally once daily; Duration: 90 days Active Metoprolol Succinate ER 100 MG 1 tab(s) orally once a day; Duration: 90 days Active Fenofibrate 160 MG 1 tab(s) orally once daily; Duration: 90 days Active Lisinopril-hydroCHLOROthi azide 20-12.5 MG 1 tab(s) orally once daily; Duration: 90 days Active Cardizem CD 240 MG 1 cap(s) orally once a day; Duration: 90 days Active Vitamin D3 125 MCG (5000 UT) 2 tab orally once a day 12/07/2010 Acti ve CareTouch CPAP & BIPAP Hose 1 DIRECTED Active Digoxin 125 MCG 1 tab(s) orally once a day; Duration: 90 days Active Allopurinol 100 MG 1 tab(s) orally 2 ti mes a day; Duration: 90 days Active Warfarin Sodium 5 MG 1 tablet Orally Onc e a day; Duration: 30 day(s) Active Aspirin 81 81 MG 1 tablet Orally Once a day; Duration: 30 day(s) Not-Taking Ondansetron HCl 4 MG 1 tablet Orally thr ee times a day as needed 11/18/2023 Active Bactrim DS 800-160 MG 1 tablet Orally Tw o times a day; Duration: 5 day(s) 11/18/2023 Active Vital Signs Weight 274.6 lbs 11/18/2023 Blood pressure systolic 132 mm Hg 11/18/19 24 Blood pressure diastolic 74 mm Hg 024 Heart Rate 59 /min 11/18/2023 Height 69.75 in 11/18/2023 BMI 39.68 kg/m2 11/18/2023 Encounters Encounter Location Date Provider Diagnosis [facility] [address] [facility] 36 [facility] [address] [place] [id number] 11/18/2023 Grisel Scott Acute gastroenteriti s K52.9 Assessments Encounter Date Diagnosis (ICD Code) Assessment Notes Treatment Notes Treatment Clinical Notes Section Notes 11/18/2023 Acute gastroenteritis (ICD-10 - K52.9) Plan Of Treatment Medication Medication Name Sig Start Date Stop Date Notes Ondansetron HCl 4 MG 1 tablet Orally thr ee times a day as needed 11/18/2023 Bactrim DS 800-160 MG 1 tablet Orally Tw o times a day; Duration: 5 day(s) 11/18/2023 Next Appt Details Follow Up: via phone to repo rt progress, Reason: Provider Name:Grisel Reid ry, 02/18/2025 09:15:00 AM, [address] [facility] 36 [facility], [address], [place], [phone], Progress Notes * Lambert MANCIADOB:1955 (69 yo M)Acc No.[id number]:11/18/2023 Progress Notes Patient: Lambert NELSON Provider: Vera Scott M.D. :1955 A ge:68 Y S ex:Male Date:11/18/2023 Address:[place], [id number] Subjective: * Chief Complaints: * 1 . Vomiting & Diarrhea. * HPI: G astroenterology: 68 year old male presents with c/o Vomiting P t complains of vomiting and diarrhea that started yesterday morning. Pt states that he has had a fever up to 102.3 as well. Pt sts that he took an at home COVID test yesterday that was negative. * ROS: C ARDIOLOGY: no D izziness. n o C hest pain. D ERMATOLOGY: no R stephen. n o H kasey. U ROLOGY: no D ifficulty urinating. n o B lood in urine. * Medical History: H ypertension, Hyperlipidemia, Gout, Rt Shoulder Pain- treated by Dr. Scherer, Vitamin D deficiency, Colon polyps, Atrial fibrillation, Dx: 2015, Impaired fasting glucose. * Surgical History: C olonoscopy 2007, 2015, CardioVersion x 2 2015, Total Lt Knee Replacement 06/2020. * Hospitalization/Major Diagno stic Procedure: A -[facility]- [facility] 12/2015. * Family History: F ather: . M other: alive. S iblings: cardiac arrhythmia- one son .?Children: cardiac arrhythmia- one son . 2 brother(s) , 2 sister(s) - healthy. 2 son(s) , 1 daughter(s) . . * Social History: C URRENT TOBACCO USE S moking Status: Patient does NOT smoke, Second hand smoke exposure: No. C affeine: yes, frequency:. Exercise: yes. Home smoke detector use: yes. Marital Status: . 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 Past smoking status: no. Recreational drug use: no. Alcohol: Type: , Frequency:socially ,Years: , Determination:. * Medications: T aking Warfarin Sodium 5 MG Tablet 1 tablet Orally Once a day , Taking Vitamin D3 125 MCG (5000 UT) Tablet 2 tab orally once a day , Taking CareTouch CPAP & BIPAP Hose MACHINE AND SUPPLIES 1 DIRECTED , Taking Digoxin 125 MCG Tablet 1 tab(s) orally once a day , Taking Allopurinol 100 MG Tablet 1 tab(s) orally 2 times a day , Taking Cardizem CD 240 MG Capsule Extended Release 24 Hour 1 cap(s) orally once a day , Taking Metoprolol Succinate ER 100 MG Tablet Extended Release 24 Hour 1 tab(s) orally once a day , Taking Fenofibrate 160 MG Tablet 1 tab(s) orally once daily , Taking Indomethacin 50 MG Capsule 1 cap(s) orally 3 times a day as needed , Taking Pravastatin Sodium 40 MG Tablet 1 tab(s) orally once daily , Taking Lisinopril-hydroCHLOROthiazide 20-12.5 MG Tablet 1 tab(s) orally once daily , Not-Taking Aspirin 81 81 MG Tablet Delayed Release 1 tablet Orally Once a day , Medication List reviewed and reconciled with the patient * Allergies: N .K.D.A. Objective: * Vitals: W t:274.6, Temp:98.7, BP:132/74, HR:59, Nurse:sunita, Ht: 69.75, BMI:39.68. * Examination: G astroenterology: General Appearance: p leasant, NAD. O ral cavity: n ormal. S clera: a nicteric. H eart sounds: r egular, normal S1 S2. L ungs: c lear, no rales or wheezes. A bdomen: B S present, soft, nontender, no guarding or rigidity, no masses felt. Assessment: * Assessment: 1. A cute gastroenteritis - K52.9 (Primary) Plan: * Treatment: Value Reference Range w bc 14.2 3.5 - 10 * l ym 15.6% 15 - 50 * m id 4.2% 2 - 15 * g ran 80.2% 35 - 80 * r bc 4.61 3.5 - 5.5 * h gb 14.1 11.5 - 16.5 * h ct 41.8 35 - 55 * m cv 90.8 75 - 100 * m ch 30.7 25 - 35 * m chc 33.8 31 - 38 * p lat 161 100 - 400 * Shana Nogueira 11/18/2023 9:35:19 AM > , Provider reviewed results while patient in office. * Procedure Codes: G 2211 Complex e/[place], [address] CAPILLARY BLOOD DRAW, 74526 CBC WITH AUTO DIFF * Follow Up: v ia phone to report progress * Images: Billing Information: * Visit Code: 08472 Office Visit, Est Pt., Level 3. * Procedure Codes: G2211 Complex e/[place]. [address] CAPILLARY BLOOD DRAW. 29991 CBC WITH AUTO DIFF. * Electronic signature of Zeenat Scott MD on 01/16/2025 at 08:03 AM EST Sign off status: Pending * Provider: Vera Scott M.D. Date: 0 11/18/2023 Generated for Mark scott/Radha/eTransmitting on: 03/18/2024 08:03 AM EST History and Physical Notes * HPI (History of Present Illness) Category Sub-Category Detail Notes Category Not es Gastroenterology Vomiting Pt complains of vomiting and diarrhea that started yesterday morning. Pt states that he has had a fever up to 102.3 as well Pt sts that he took an at home COVID test yesterday that was negative Examination Category Sub-Category Detail Notes Category Not es Gastroenterology Oral cavity: normal Sclera: anicteric Heart sounds: regular, normal S1 S 2 Lungs: clear, no rales or w heezes Abdomen: BS present, soft, no ntender, no guarding or rigidity, no masses felt General Appearance: pleasant, NAD
--- OUTSIDE RECORDS SUMMARY | 2023-11-22 04:00 | XMS_ITS ---
Author Organization [facility] Address [address] [facility] 36 [facility] [address] [place] [phone] Care Team Providers Care Tonal Regulator Name Role Phone Grisel Scott Primary Care Provider GRISEL SCOTT Unavailable Unavailable Allergies No Known Allergies REASON FOR VISIT 6 months Encounters Encounter Location Date Provider Diagnosis [facility] [address] [place] [id number] 11/22/2023 Grisel Scott Plan Of Treatment Next Appt Details Provider Name:Grisel Reid ry, 02/18/2025 09:15:00 AM, [address], [address], [place], [phone], Progress Notes * Lambert MANCIADOB:1955 (69 yo M)Acc No.[id number]:11/22/2023 Progress Notes Patient: Lambert NELSON Provider: Vera [...] detector use: yes. Marital Status: . 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 Past smoking status: no. Recreational drug [...] 0 11/22/2023 Generated for Mark scott/Radha/Raheem on: 03/18/2024 08:03 AM EST History and Physical Notes * HPI (History of Present Illness) Category Sub-Category Detail Notes Category Not es Endocrinology Hypothyroidism Pt here to f/u Cardiology Blood Pressure Elevated Pt here for 6 mo f/u on hypertension, states he is doing well and does not have any concerns Hyperlipidemia Pt is fasting today
--- OUTSIDE RECORDS SUMMARY | 2024-03-13 05:45 | XMS_ITS ---
Author Organization [facility] Address [address] [facility] [address] [place] [phone] Care Team Providers Care Production Machine Computer Operator Name Role Phone Grisel Scott Primary Care Provider GRISEL SCOTT Unavailable Unavailable Marcela Galeano Unavailable [phone] Allergies No Known Allergies Results Component Value [...] day as needed 11/18/2023 Active Vital Signs Weight 268.0 lbs 03/13/2024 Blood pressure systolic 128 mm Hg 03/13/20 24 Blood pressure diastolic 70 mm Hg 024 Heart Rate 88 /min 03/13/2024 Height 69.75 in 03/13/2024 BMI 38.73 kg/m2 03/13/2024 Encounters Encounter Location Date Provider Diagnosis [facility] [address] [place] [address] [address] [place] [phone] 03/13/2024 Marcela Galeano COVID-19 U07. 1 Assessments [...] Details Follow Up: prn, Reason: Provider Name:Grisel Reid , 02/18/2025 09:15:00 AM, 1210 [facility] 36 [facility], [address], [place], [phone], Progress Notes * JOSUE LambertDOB:1955 (69 yo M)Acc No.[id number]:03/13/2024 Progress Notes Patient: Lambert NELSON Provider: GIORGI Carter :1955 A ge:68 Y S ex:Male Date:03/13/2024 Address:[facility] [address] [id number] Pcp:Grisel T [place] Subjective: * Chief Complaints: * 1 . [...] * Hospitalization/Major Diagno stic Procedure: A -Fib- [facility] 12/2015. * Family History: F ather: . [...] use: yes. Marital Status: . 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 Past smoking status: no. Recreational drug use: [...] G 2211 Complex e/[place], [address] Flu Test- Nasal Swab, Modifiers: QW , 79413 COVID TEST IN HOUSE, Modifiers: QW * Follow Up: p rn * Images: Billing Information: * Visit Code: 27848 Office Visit, Est Pt., Level 3. * Procedure Codes: G2211 Complex e/[place]. [address] Flu Test- Nasal Swab. Modifiers: QW 39548 COVID TEST IN HOUSE. Modifiers: QW * Electronic signature of Charlotte nowak Waleska , JORDIN on 01/16/2025 at 08:03 AM EST Sign off status: Pending * Provider: GIORGI Carter Date: Generated for Mark scott/Radha/Raheem on: 03/18/2024 08:03 [...]
--- OUTSIDE RECORDS SUMMARY | 2024-08-17 05:30 | XMS_ITS ---
Author Organization [facility] Address [address] [place] [id number] Care Team Providers Care Laundry Tub Maker Name Role Phone Grisel Scott Primary Care Provider [phone] GRISEL SCOTT Unavailable Unavailable Allergies No Known Allergies Results Component Value Reference Range Notes Glucose (In-House) Reviewed date:08/20/2024 01:14:17 PM Interpretation:133 Performing Lab: Notes/Report: 133 blood glucose 133 74 - 106 mg/dL Glycohemoglobin A1c (in hous e) Reviewed date:08/20/2024 01:14:17 PM Interpretation:6.1 Performing Lab: Notes/Report: 6.1 glycohemoglobin 6.1% 5 - 6.5 % P-Comprehensive Metabolic Pa nasima (CMP) Reviewed date:08/20/2024 01:14:17 PM Interpretation:gluc 112 Performing Lab: Notes/Report: CLIA: [id number] Joaquín Little MD, Grill Associate [address] [facility] , [address], [place] [address] Test performed by [employer], [employer] Sodium 139 135-145 mmol/L Potassium 4.4 3.5-5.3 mmol/L Chloride 101 97-108 mmol/L CO2 23 22-32 mmol/L Glucose 112 65-99 mg/dL BUN 21 8-23 mg/dL Creatinine 1.02 0.70-1.30 mg/dL Calcium 9.7 8.6-10.4 mg/dL eGFR by Creatinine 79 >59 mL/min/1.73m2 Protein 7.2 6.0-8.3 g/dL Albumin 4.5 3.5-5.3 g/dL Alkaline Phosphatase 55 40-129 IU/L ALT (SGPT) 22 <5-55 IU/L AST (SGOT) 36 <5-46 IU/L Bilirubin, Total 0.4 <0.2-1.2 mg/dL A/G Ratio 1.7 1.1-2.5 P-T4 Free (thyroxine) Reviewed date:08/20/2024 01:14:17 PM Interpretation:Normal Performing Lab: Notes/Report: CLIA: [id number] Joaquín Little MD, Grill Associate [address] [place] [address] [place] [address] Test performed by [employer] Thyroxine Free (free T4) 1.04 0.86-1.76 ng/dL P-Lipid Panel Reviewed date:08/20/2024 01:14:17 PM Interpretation:trigs 311. hdl 36, non-hdl 139 Performing Lab: Notes/Report: Test performed by [employer] [address] [place] [address] [place] [address] Joaquín Little MD, Grill Associate CLIA: [id number] Cholesterol 175 <200 mg/dL Triglycerides 311 <150 mg/dL HDL Cholesterol 36 >39 mg/dL Cholesterol / HDL Ratio 4.86 0.00-4.99 Ratio Non-HDL Cholesterol 139 <130 mg/dL LDL Cholesterol (Calculation) 77 <130 mg/dL LDL Cholesterol Levels* Less than 100 mg/dL Optimal 100 to 129 mg/dL Near Optimal/ Above Optimal 130 to 159 mg/dL Borderline High 160 to 189 mg/dL High 190 mg/dL and above Very High * Categories as recommended by the 2004 ATPIII guidelines LDL/HDL Ratio 2.1 <3.3 Ratio LDL Cholesterol Patient History Test Date: 08/17/2024 LDL Results: 77 Units: mg/dL % Change: - P-PSA Reviewed date:08/20/2024 01:14:17 PM Interpretation:Normal Performing Lab: Notes/Report: Test performed by [email or web address] , [address], [place] [address] Joaquín Little MD, Grill Associate CLIA: [id number] PSA 0.83 <4.00 ng/mL Please note this is an ultrasensitive PSA assay with a lower limit of detection of 0.014 ng/mL. This test is performed by the [employer] ECLIA methodology. Values obtained with different assay methods or kits cannot be directly compared. P-TSH Reviewed date:08/20/2024 01:14:17 PM Interpretation:Normal Performing Lab: Notes/Report: Test performed by [email or web address] , [address], [place] [address] Joaquín Little MD, Grill Associate CLIA: [id number] TSH 4.30 0.43-5.25 mU/L P-Microalbumin/Creatinine, R andom Urine Sample Reviewed date:08/20/2024 01:14:17 PM Interpretation:Normal Performing Lab: Notes/Report: Test performed by [email or web address] , [address], [place] [address] Joaquín Little MD, Grill Associate CLIA: [id number] Albumin/Creatinine Ratio, Urine 8 0-30 ug/m g Microalbumin, Urine, Random 1.5 Creatinine, Urine 195.3 P-Uric Acid Reviewed date:08/20/2024 01:14:17 PM Interpretation:Normal Performing Lab: Notes/Report: Test performed by [employer] [address] , [address], [place] [address] Joaquín Little MD, Grill Associate CLIA: [id number] Uric Acid 6.0 3.4-8.0 mg/dL P-Vitamin D 25-Hydroxy Reviewed date:08/20/2024 01:14:17 PM Interpretation:38 Performing Lab: Notes/Report: Test performed by [employer] [address] [facility] , [address], [place] [address] Joaquín Little MD, Grill Associate CLIA: [id number] Vitamin D 25-Hydroxy 38.0 30.0-100.0 ng/mL Interpretation of Vitamin D 25 OH: < 20 ng/mL - Deficiency 20 - 29 ng/mL - Insufficiency 30 - 100 ng/mL - Sufficiency > 100 ng/mL - Super-therapeutic- toxicity may occur above this level. Clinical correlation required. REASON FOR VISIT annual wellness check Medications Medication SIG (Take, Route, Frequency, Duration) Notes Start Date End Date Status Pravastatin Sodium 40 MG 1 tab(s) orally once daily; Duration: 90 days Active CareTouch CPAP & BIPAP Hose 1 DIRECTED Active Vitamin D3 125 MCG (5000 UT) 2 tab orally once a day 12/07/2010 Acti ve Warfarin Sodium 5 MG 1 tablet Orally Onc e a day; Duration: 30 day(s) Active Ondansetron HCl 4 MG 1 tablet Orally thr ee times a day as needed 11/18/2023 Active Digoxin 125 MCG 1 tab(s) orally once a day; Duration: 90 days Active Lisinopril-hydroCHLOROthiaz jarvis 20-12.5 MG 1 tab(s) orally twice a day; Duration: 90 days Active Cardizem CD 240 MG 1 cap(s) orally once a day; Duration: 90 days Active Allopurinol 100 MG 1 tab(s) orally 2 ti mes a day; Duration: 90 days Active Metoprolol Succinate ER 100 MG 1 tab(s) orally once a day; Duration: 90 days Active Fenofibrate 160 MG 1 tab(s) orally once daily; Duration: 90 days Active Indomethacin 50 mg TAKE ONE CAPSULE BY MOUTH THREE TIMES DAILY NEEDED; Duration: 30 Active Vital Signs Weight 271.0 lbs 08/17/2024 Blood pressure systolic 134 mm Hg 08/18/19 25 Blood pressure diastolic 72 mm Hg 025 Heart Rate 60 /min 08/17/2024 Height 69.75 in 08/17/2024 BMI 39.16 kg/m2 08/17/2024 Encounters Encounter Location Date Provider Diagnosis Ernesto [address] [facility] [address] [place] [id number] 08/17/2024 Grisel Scott Essential hypertensi on I10 ; Hyperlipidemia, unspecified hyperlipidemia type E78.5 ; Hypertriglyceridemia E78.1 ; IFG (impaired fasting glucose) R73.01 ; Acquired hypothyroidism E03.9 ; Vitamin D deficiency E55.9 ; Prostate cancer screening Z12.5 ; Gout, unspecified cause, unspecified chronicity, unspecified site M10.9 and Atrial fibrillation, unspecified type I48.91 Assessments Encounter Date Diagnosis (ICD Code) Assessment Notes Treatment Notes Treatment Clinical Notes Section Notes 08/17/2024 Essential hypertensi on (ICD-10 - I10) 08/17/2024 Hyperlipidemia, unspecified hyperlipidemia type (ICD-10 - E78.5) 08/17/2024 Hypertriglyceridemia (ICD-10 - E78.1) 08/17/2024 IFG (impaired fastin g glucose) (ICD-10 - R73.01) 08/17/2024 Acquired hypothyroid ism (ICD-10 - E03.9) 08/17/2024 Vitamin D deficiency (ICD-10 - E55.9) 08/17/2024 Prostate cancer screening (ICD-10 - Z12.5) 08/17/2024 Gout, unspecified ca use, unspecified chronicity, unspecified site (ICD-10 - M10.9) 08/17/2024 Atrial fibrillation, unspecified type (ICD-10 - I48.91) Plan Of Treatment Medication Medication Name Sig Start Date Stop Date Notes Pravastatin Sodium 40 MG 1 tab(s) orally once daily; Duration: 90 days Digoxin 125 MCG 1 tab(s) orally once a day; Duration: 90 days Lisinopril-hydroCHLOROthiazi de 20-12.5 MG 1 tab(s) orally twice a day; Duration: 90 days Cardizem CD 240 MG 1 cap(s) orally once a day; Duration: 90 days Allopurinol 100 MG 1 tab(s) orally 2 ti mes a day; Duration: 90 days Metoprolol Succinate ER 100 MG 1 tab(s) orally once a day; Duration: 90 days Fenofibrate 160 MG 1 tab(s) orally once daily; Duration: 90 days Next Appt Details Follow Up: 6 Months, Reason: Provider Name:Grisel Reid ry, 02/18/2025 09:15:00 AM, [address], [address], [place], [place], [id number], Progress Notes * Lambert MANCIADOB:1955 (69 yo M)Acc No.[id number]:08/17/2024 Progress Notes Patient: Lambert NELSON Provider: Vera Scott M.D. :1955 A ge:68 Y S ex:Male Date:08/17/2024 Address:[address] [place] [address] [facility] [id number] Subjective: * Chief Complaints: * 1 . Annual wellness check. * HPI: H PI: 68 year old male presents with c/o Patient is here today for?Pt is here today for a check up today and fasting labs. Pt sts he does need refills on his medications as well. * ROS: D ERMATOLOGY: no R stephen. [...] * Hospitalization/Major Diagno stic Procedure: A -Fib- [facility] 12/2015. * Family History: F ather: [...] detector use: yes. Marital Status: . 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 Past smoking status: no. Recreational drug use: no. Alcohol: Type: , Frequency:socially ,Years: , Determination:. * Medications: T aking Ondansetron HCl 4 MG Tablet 1 tablet Orally three times a day as needed , Taking Warfarin Sodium 5 MG Tablet 1 tablet Orally Once a day , Taking Vitamin D3 125 MCG (5000 UT) Tablet 2 tab orally once a day , Taking CareTouch CPAP & BIPAP Hose MACHINE AND SUPPLIES 1 DIRECTED , Taking Fenofibrate 160 MG Tablet 1 [...] Lisinopril-hydroCHLOROthiazide 20-12.5 MG Tablet 1 tab(s) orally twice a day , Taking Pravastatin Sodium 40 MG Tablet 1 tab(s) orally once daily , Taking Indomethacin 50 mg Capsule TAKE ONE CAPSULE BY MOUTH THREE TIMES DAILY NEEDED , Medication List reviewed and reconciled with the patient * Allergies: N .K.D.A. Objective: * Vitals: W t: 271.0, Temp: 97.8, BP: 134/72, HR: 60, Nurse: jeanne, Ht: 69.75, BMI:39.16. * Examination: C ardiology: General Appearance: p leasant, NAD. H eart sounds: RRR. L ungs: c lear, no rales or wheezes. E xtremities: n o leg edema. P eripheral pulses: 2 plus bilateral. Assessment: * Assessment: 1. E ssential hypertension - I10 (Primary) 2 . H yperlipidemia, unspecified hyperlipidemia type - E78.5 3 . H ypertriglyceridemia - E78.1 4 . I FG (impaired fasting glucose) - R73.01 5 . A cquired hypothyroidism - E03.9 6 . V itamin D deficiency - E55.9 7 . P rostate cancer screening - Z12.5 8 . G out, unspecified cause, unspecified chronicity, unspecified site - M10.9 9 . A trial fibrillation, unspecified type - I48.91 ? Plan: * Treatment: Value Reference Range A /G Ratio 1.7 1.1-2.5 - * A lbumin 4.5 3.5-5.3 - g/dL * A lkaline Phosphatase 55 40-129 - IU/L * A LT (SGPT) 22 <5-55 - IU/L * A ST (SGOT) 36 <5-46 - IU/L * B ilirubin, Total 0.4 <0.2-1.2 - mg/dL * B UN 21 8-23 - mg/dL * C alcium 9.7 8.6-10.4 - mg/dL * C hloride 101 97-108 - mmol/L * C O2 23 22-32 - mmol/L * C reatinine 1.02 0.70-1.30 - mg/dL * G lucose 112 H 65-99 - mg/dL * P otassium 4.4 3.5-5.3 - mmol/L * S odium 139 135-145 - mmol/L * P rotein 7.2 6.0-8.3 - g/dL * e GFR by Creatinine 79 >59 - mL/min/1.73m2 * Nathalia Luo 08/20/2024 01 :14:08 PM EDT > See phone encounter ?LAB: P-Microalbumin/Creatinine, Random Urine Sample (Collection Date & Time - 08/17/2024 10:17 AM)?Normal* Value Reference Range A lbumin/Creatinine Ratio, Urine 8 0-30 - ug /mg * C reatinine, Urine 195.3 - mg/dL * M icroalbumin, Urine, Random 1.5 - mg/dL * Nathalia Luo 08/20/2024 01 :14:08 PM EDT > See phone encounter 2.?Hyperlipidemia, unspecified hyperlipidemia type? Refill Pravastatin Sodium Tablet, 40 MG, 1 tab(s), orally, once daily, 90 days, 90, Refills 1.?LAB: P-Comprehensive Metabolic Panel (CMP) (Collection Date & Time - 08/17/2024 10:17 AM)?gluc 112* Value Reference Range A /G Ratio 1.7 1.1-2.5 - * A lbumin 4.5 3.5-5.3 - g/dL * A lkaline Phosphatase 55 40-129 - IU/L * A LT (SGPT) 22 <5-55 - IU/L * A ST (SGOT) 36 <5-46 - IU/L * B ilirubin, Total 0.4 <0.2-1.2 - mg/dL * B UN 21 8-23 - mg/dL * C alcium 9.7 8.6-10.4 - mg/dL * C hloride 101 97-108 - mmol/L * C O2 23 22-32 - mmol/L * C reatinine 1.02 0.70-1.30 - mg/dL * G lucose 112 H 65-99 - mg/dL * P otassium 4.4 3.5-5.3 - mmol/L * S odium 139 135-145 - mmol/L * P rotein 7.2 6.0-8.3 - g/dL * e GFR by Creatinine 79 >59 - mL/min/1.73m2 * Nathalia Luo 08/20/2024 01 :14:08 PM EDT > See phone encounter ?LAB: P-Lipid Panel (Collection Date & Time - 08/17/2024 10:17 AM)?trigs 311. hdl 36, non-hdl 139* Value Reference Range C holesterol / HDL Ratio 4.86 0.00-4.99 - Ratio * C holesterol 175 <200 - mg/dL * H DL Cholesterol 36 L >39 - mg/dL * L DL Cholesterol (Calculation) 77 <130 - mg/d L * L DL/HDL Ratio 2.1 <3.3 - Ratio * N on-HDL Cholesterol 139 H <130 - mg/dL * T riglycerides 311 H <150 - mg/dL * Nathalia Luo 08/20/2024 01 :14:08 PM EDT > See phone encounter 3.?Hypertriglyceridemia? Refill Fenofibrate Tablet, 160 MG, 1 tab(s), orally, once daily, 90 days, 90, Refills 1.?LAB: P-Lipid Panel (Collection Date & Time - 08/17/2024 10:17 AM)?trigs 311. hdl 36, non-hdl 139* Value Reference Range C holesterol / HDL Ratio 4.86 0.00-4.99 - Ratio * C holesterol 175 <200 - mg/dL * H DL Cholesterol 36 L >39 - mg/dL * L DL Cholesterol (Calculation) 77 <130 - mg/d L * L DL/HDL Ratio 2.1 <3.3 - Ratio * N on-HDL Cholesterol 139 H <130 - mg/dL * T riglycerides 311 H <150 - mg/dL * Nathalia Luo 08/20/2024 01 :14:08 PM EDT > See phone encounter 4.?IFG (impaired fasting glucose)?LAB: Glucose (In-House) (Collection Date & Time - 08/17/2024)?133* Value Reference Range b lood glucose 133 74 - 106 mg/dL * Shelli Rodgers 08/17/2024 11:41 :04 AM EDT > Nathalia Luo 08/20/2024 01:14:08 PM EDT > See phone encounter ?LAB: Glycohemoglobin A1c (in house) (Collection Date & Time - 08/17/2024)? 6.1* Value Reference Range g lycohemoglobin 6.1% 5 - 6.5 % * Shelli Rodgers 08/17/2024 11:41 :44 AM EDT > Nathalia Luo 08/20/2024 01:14:08 PM EDT > See phone encounter 5.?Acquired hypothyroidism?LAB: P-T4 Free (thyroxine) (Collection Date & Time - 08/17/2024 10:17 AM)? Normal* Value Reference Range T hyroxine Free (free T4) 1.04 0.86-1.76 - ng/d L * Nathalia Luo 08/20/2024 01 :14:08 PM EDT > See phone encounter ?LAB: P-TSH (Collection Date & Time - 08/17/2024 10:17 AM)?Normal* Value Reference Range T SH 4.30 0.43-5.25 - mU/L * Nathalia Luo 08/20/2024 01 :14:08 PM EDT > See phone encounter 6.?Vitamin D deficiency?LAB: P-Vitamin D 25-Hydroxy (Collection Date & Time - 08/17/2024 10:17 AM)? 38* Value Reference Range V itamin D 25-Hydroxy 38.0 30.0-100.0 - ng/mL * Nathalia Luo 08/20/2024 01 :14:08 PM EDT > See phone encounter 7.?Prostate cancer screening?LAB: P-PSA (Collection Date & Time - 08/17/2024 10:17 AM)?Normal* Value Reference Range P SA 0.83 <4.00 - ng/mL * Nathalia Luo 08/20/2024 01 :14:08 PM EDT > See phone encounter 8.?Gout, unspecified cause, unspecified chronicity, unspecified site?LAB: P-Uric Acid (Collection Date & Time - 08/17/2024 10:17 AM)?Normal* Value Reference Range U analisa Acid 6.0 3.4-8.0 - mg/dL * Nathalia Luo 08/20/2024 01 :14:08 PM EDT > See phone encounter 9.?Others? Refill Allopurinol Tablet, 100 MG, 1 tab(s), orally, 2 times a day, 90 days, 180, Refills 1;?Refill Digoxin Tablet, 125 MCG, 1 tab(s), orally, once a day, 90 days, 90, Refills 1.?? * Procedure Codes: G 2211 Complex e/[place], [address] GLUCOSE TEST, 85485 GLYCATED HEMOGLOBIN TEST, Modifiers: QW , G8950 PREHTN/HTN BP DOC INDCD F/U DOC, G8752 MOST RECENT SYSTOLIC BP < 140MM HG, G8754 MOST RECENT DIASTOLIC BP < 90MM HG, 3044F HG A1C LEVEL LT 7.0%, 1036F TOBACCO NON-USER * Follow Up: 6 Months * Images: Billing Information: * Visit Code: 15442 Office Visit, Est Pt., Level 4. * Procedure Codes: G2211 Complex e/[place]. [address] GLUCOSE TEST. 67485 GLYCATED HEMOGLOBIN TEST. Modifiers: QW G8950 PREHTN/HTN BP DOC INDCD F/U DOC. G8752 MOST RECENT SYSTOLIC BP < 140MM HG. G8754 MOST RECENT DIASTOLIC BP < 90MM HG. 3044F HG A1C LEVEL LT 7.0%. 1036F TOBACCO NON-USER. * Electronic signature of Zeenat Scott MD on 01/16/2025 at 08:03 AM EST Sign off status: Pending * Provider: Vera Scott M.D. Date: 0 08/17/2024 Generated for Mark scott/Radha/Deepsmitting on: 1 03/18/2024 08:03 AM EST History and Physical Notes * HPI (History of Present Illness) Category Sub-Category Detail Notes Category Not es HPI Patient is here today for Pt is here today for a check up today and fasting labs. Pt sts he does need refills on his medications as well Examination Category Sub-Category Detail Notes Category Not es Cardiology Lungs: clear, no rales or wheezes Heart sounds: RRR Extremities: no leg edema Peripheral pulses: 2 plus bilateral General Appearance: pleasant, NAD
--- OUTSIDE RECORDS SUMMARY | 2025-01-16 08:04 | XMS_ITS | Patient Health Record ---
[facility] Address [address] [place] [id number] Care Team Providers Care Engagement Executive Name Role Phone Grisel Scott Primary Care Provider GRISEL SCOTT Unavailable Unavailable Marcela Galeano Unavailable [phone] Allergies No Known Allergies Results Component Value [...] - 6.5 % P-Comprehensive Metabolic Pa nasima ([facility]) Reviewed date:08/20/2024 01:14:17 PM Interpretation:gluc 112 Performing Lab: Notes/Report: Test performed by [facility] , [address], [place] [address] Joaquín Little MD, Manager Of Case Management CLIA: [id number] Sodium 139 135-145 mmol/L Potassium 4.4 3.5-5.3 [...] Interpretation:Normal Performing Lab: Notes/Report: Test performed by [email or web address] [address] [place] [address] , [place] [address] Joaquín Little MD, Manager Of Case Management CLIA: [id number] Thyroxine Free (free T4) 1.04 0.86-1.76 ng/dL P-Lipid Panel Reviewed date:08/20/2024 01:14:17 PM Interpretation:trigs 311. hdl 36, non-hdl 139 Performing Lab: Notes/Report: Test performed by [email or web address] [address] [place] [address] , [facility] [place] [address] Joaquín Little MD, Manager Of Case Management CLIA: [id number] Cholesterol 175 <200 mg/dL Triglycerides 311 <150 [...] Interpretation:Normal Performing Lab: Notes/Report: Test performed by [facility] [address] [place] , [place] [address] Joaquín Little MD, Manager Of Case Management CLIA: [id number] PSA 0.83 <4.00 ng/mL Please note this is an ultrasensitive PSA assay with a lower limit of detection of 0.014 ng/mL. This test is performed by the [employer] ECLIA methodology. Values obtained with different assay methods or kits cannot be directly compared. P-TSH Reviewed date:08/20/2024 01:14:17 PM Interpretation:Normal Performing Lab: Notes/Report: Test performed by [email or web address] [address] [place] [address] , [address], [place] [address] Joaquín Little MD, Manager Of Case Management CLIA: [id number] TSH 4.30 0.43-5.25 mU/L P-Microalbumin/Creatinine, R andom Urine Sample Reviewed date:08/20/2024 01:14:17 PM Interpretation:Normal Performing Lab: Notes/Report: Test performed by [email or web address] [address] [place] [address] , [address], [place] [address] Joaquín Little MD, Manager Of Case Management CLIA: [id number] Albumin/Creatinine Ratio, Urine 8 0-30 ug/m g Microalbumin, Urine, Random 1.5 Creatinine, Urine 195.3 P-Uric Acid Reviewed date:08/20/2024 01:14:17 PM Interpretation:Normal Performing Lab: Notes/Report: Test performed by [email or web address] [address] [place] [address] [place] [address] Joaquín Little MD, Manager Of Case Management CLIA: [id number] Uric Acid 6.0 3.4-8.0 mg/dL P-Vitamin D 25-Hydroxy Reviewed date:08/20/2024 01:14:17 PM Interpretation:38 Performing Lab: Notes/Report: Test performed by [email or web address] [address] [place] [address] [address] , [place] [address] Joaquín Little MD, Manager Of Case Management CLIA: [id number] Vitamin D 25-Hydroxy 38.0 30.0-100.0 ng/mL Interpretation of Vitamin D 25 OH: < 20 ng/mL - Deficiency 20 - 29 ng/mL - Insufficiency 30 - 100 ng/mL - Sufficiency > 100 ng/mL - Super-therapeutic- toxicity may occur above this level. Clinical correlation required. Medications Medication SIG (Take, Route, Frequency, Duration) Notes Start Date End Date Status Fenofibrate 160 MG 1 tab(s) orally once daily; Duration: 90 days Active Pravastatin Sodium 40 MG 1 tab(s) [...] Once a day; Duration: 30 day(s) Active Indomethacin 50 mg 1 capsule as needed orally 3 times a day; Duration: 30 days Active Ondansetron HCl 4 MG 1 tablet [...] Status Risk Notes Problem Vitamin D deficiency (80416999) Vitamin D deficiency (E55.9) Active confirmed Problem Essential hypertension (01559696) Essential hypertension (I10) Active confirmed Problem Hypertriglyceridemia (539091880) Hypertriglyceridemia (E78.1) Active confirmed Problem Arthropathy of lumba r facet joint (793500587) Lumbar facet arthropathy (M47.816) Active confirmed Problem Degeneration of lumbar intervertebral disc (85820849) Lumbar degenerative disc disease (M51.36) Active confirmed Problem Acquired hypothyroidism (619984437) Acquired hypothyroidism (E03.9) Active confirmed Problem Displacement of lumbar intervertebral disc without myelopathy (22946310) Bulging lumbar disc (M51.26) Active confirmed Problem Gout (62987163) Gout, unspecifie d cause, unspecified chronicity, unspecified site (M10.9) Active confirmed Problem History of nutritional deficiency (98570567504762) History of vitamin D deficiency (Z86.39) Active confirmed Problem Atrial fibrillation (85265797) Atrial fibrillation, unspecified type (I48.91) Active confirmed Problem Osteoarthritis of knee (763190233) Primary osteoarthritis of left knee (M17.12) Active confirmed Problem Hyperlipidaemia (80234946) Hyperlipidemia, unspecified hyperlipidemia type (E78.5) Active confirmed Problem Sciatica (93649064) Acute left-s ided low back pain with left-sided sciatica (M54.42) Active confirmed Problem Impaired fasting glycaemia (386229107) IFG (impaired fasting glucose) (R73.01) Active confirmed Problem Arthritis of left knee (5759369767258682) Arthritis of left knee (M17.12) Active confirmed Vital Signs Heart Rate 60 /min 08/17/2024 Blood pressure diastolic 72 mm Hg 08/17/2024 Height 69.75 in 08/17/2024 Blood pressure systolic 134 mm Hg 08/17/2024 Weight 271.0 lbs 08/17/2024 BMI 39.16 kg/m2 08/17/2024 Encounters Encounter Location Date Provider Diagnosis [facility] [address] [facility] [address] [place], [place] [id number] 03/13/2024 Marcela Pooelond COVID-19 U07.1 [facility] [address] [facility] [address] [place] [id number] 08/17/2024 Grisel [place] Essential hypertensi on I10 ; Hyperlipidemia, unspecified hyperlipidemia type E78.5 ; Hypertriglyceridemia E78.1 ; IFG (impaired fasting glucose) R73.01 ; Acquired hypothyroidism E03.9 ; Vitamin D deficiency E55.9 ; Prostate cancer screening Z12.5 ; Gout, unspecified cause, unspecified chronicity, unspecified site M10.9 and Atrial fibrillation, unspecified type I48.91 [facility] [address] [facility] [address] [place], [place] [id number] 03/29/2024 Grisel [place] Gout, unspecified ca use, unspecified chronicity, unspecified site M10.9 [facility] [address] [facility] [address] [place], [place] [id number] 08/20/2024 Grisel [place] [facility] [address] [facility] [address] [place] [id number] 08/27/2024 Grisel [place] [facility] [address] [facility] [address] [place] [id number] 01/04/2025 Grisel Scott Assessments Encounter Date Diagnosis (ICD Code) Assessment [...] Reid , 02/18/2025 09:15:00 AM, [address], [address], [place] [id number], Insurance Providers Payer Name Payer Address Payer Phone Subscriber Number Group Number Insured Name Patient Relationship to Insured Coverage Start Date Coverage End Date MEDICARE PART B [address] [address] [place] [id number] [phone] [id number] Lambert Mancia Self - patient is the insured [employer] INSURANCE [address] [place] [id number] Lambert Mancia Self - patient is the [...] Knee Replacement 06/2020 Hospitalization History Reason Date(Month/Year) [facility] 12/2015
[2025-01-16 11:24] LABS: PHA INR Fingerstick 2.5 (0.9-1.1)
== END 2025-01-16 11:33 ==
LOC: ACC 08:02
PROVIDERS: PCP Family Medicine; Visit Provider Physician Assistant
DX: I48.91 Unspecified atrial fibrillation (principal); Z79.01 Long term (current) use of anticoagulants
CPT/HCPCS: 85610; 99211; G0463

== ENCOUNTER 2025-02-27 08:07 | Outpatient (CLI) | payer MEDICARE, SELFPAY ==
--- OUTSIDE RECORDS SUMMARY | 2023-11-18 04:30 | XMS_ITS ---
Author Organization [facility] Address [address] [place] [phone] Care Team Providers Care Scientist/Engineer Name Role Phone Grisel Scott Primary Care [...] Duration: 5 day(s) 11/18/2023 Active Vital Signs Blood pressure systolic 132 mm Hg 11/18/19 24 Blood pressure diastolic 74 mm Hg 024 Heart Rate 59 /min 11/18/2023 Height 69.75 in 11/18/2023 Weight 274.6 lbs 11/18/2023 BMI 39.68 kg/m2 11/18/2023 Encounters Encounter Location Date Provider Diagnosis [facility] [address] [facility] 36 [facility] [address] [place] [phone] 11/18/2023 Grisel Scott Acute gastroenteriti s K52.9 [...] rt progress, Reason: Provider Name:Grisel Reid ry, 08/20/2025 09:00:00 AM, [address] [facility] 36 [facility], [address], [place], [phone], Progress Notes * Lambert MANCIADOB:1955 (69 yo M)Acc No.[id number]:11/18/2023 Progress Notes Patient: Lambert NELSON Provider: Vera Scott M.D. :1955 A ge:68 Y S ex:Male Date:11/18/2023 Address:[place], [id number] Subjective: * Chief Complaints: * 1 . [...] 06/2020. * Hospitalization/Major Diagno stic Procedure: A -[facility] 12/2015. * Family History: F ather: . [...] detector use: yes. Marital Status: . 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 Past smoking status: no. Recreational drug [...] G 2211 Complex e/[place], [address] CAPILLARY BLOOD DRAW, 42752 CBC WITH AUTO DIFF * Follow Up: v ia phone to report progress * Images: Billing Information: * Visit Code: 49685 Office Visit, Est Pt., Level 3. * Procedure Codes: G2211 Complex e/[place]. [address] CAPILLARY BLOOD DRAW. 17373 CBC WITH AUTO DIFF. * Electronic signature of Zeenat Scott MD on 02/27/2025 at 08:10 AM EST Sign off status: Pending * Provider: Vera Scott M.D. Date: 0 11/18/2023 Generated for Mark scott/Radha/eTransmitting on: 1 04/30/2024 08:10 AM EST History and Physical Notes * [...]
--- OUTSIDE RECORDS SUMMARY | 2023-11-22 04:00 | XMS_ITS ---
Author Organization [facility] Address [address] [facility] 36 [facility] [address] [place] [phone] Care Team Providers Care Police Patrol Lieutenant Name Role Phone Grisel Scott Primary Care Provider GRISEL SCOTT Unavailable Unavailable Allergies No Known Allergies REASON FOR VISIT 6 months Encounters Encounter Location Date Provider Diagnosis [place] [address] [place] [phone] 11/22/2023 Grisel Scott Plan Of Treatment Next Appt Details Provider Name:Grisel Reid ry, 08/20/2025 09:00:00 AM, [address], [address], [place], [phone], Progress Notes * Lambert MANCIADOB:1955 (69 yo M)Acc No.[id number]:11/22/2023 Progress Notes Patient: Lambert NELSON Provider: Vera Scott M.D. :1955 A ge:68 Y S ex:Male Date:11/22/2023 Address:[id number] Subjective: * Chief Complaints: * 1 . 6 months. * HPI: C ardiology: 68 year old male presents with c/o Blood Pressure Elevated P t here for 6 mo f/u on hypertension, states he is doing well and does not have any concerns. c/o Hyperlipidemia P t is fasting today. E ndocrinology: c/o Hypothyroidism P t here to f/u. * ROS: D ERMATOLOGY: no R stephen. n o H kasey. G ASTROENTEROLOGY: no N ausea. n o V omiting. U ROLOGY: no D ifficulty urinating. n o B lood in urine. * Medical History: H ypertension, Hyperlipidemia, Gout, Rt Shoulder Pain- treated by Dr. Scherer, Vitamin D deficiency, Colon polyps, Atrial fibrillation, Dx: 2015, Impaired fasting glucose. * Surgical History: C olonoscopy 2007, 2015, CardioVersion x 2 2015, Total Lt Knee Replacement 06/2020. * Hospitalization/Major Diagno stic Procedure: A -Fib- [facility] 12/2015. * Family History: F ather: . [...] detector use: yes. Marital Status: . 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 Past smoking status: no. Recreational drug use: no. Alcohol: Type: , Frequency:socially ,Years: , Determination:. * Allergies: N .K.D.A. Objective: * Vitals: Assessment: Plan: * Treatment: * Images: Billing Information: * Visit Code: * Procedure Codes: * Electronic signature of Zeenat Scott MD on 02/27/2025 at 08:10 AM EST Sign off status: Pending * Provider: Vera Scott M.D. Date: 0 11/22/2023 Generated for Mark scott/Radha/Raheem on: 1 04/30/2024 08:10 AM EST History and Physical Notes * HPI (History of Present Illness) Category Sub-Category Detail Notes Category Not es Endocrinology Hypothyroidism Pt here to f/u Cardiology Blood Pressure Elevated Pt here for 6 mo f/u on hypertension, states he is doing well and does not have any concerns Hyperlipidemia Pt is fasting today
--- OUTSIDE RECORDS SUMMARY | 2024-03-13 05:45 | XMS_ITS ---
Author Organization [facility] Address [address] [facility] [address] [place] [id number] Care Team Providers Care On Air Announcer Name Role Phone Grisel Scott Primary Care Provider GRISEL SCOTT Unavailable Unavailable Marcela Galeano Unavailable [phone] Allergies No Known Allergies Results Component Value Reference Range Notes Influenza Screen (in house) Reviewed date:03/13/2024 08:42:28 PM Interpretation:Negative Performing Lab: Notes/Report: Negative results Neg Covid test (in house) Reviewed date:03/13/2024 08:42:09 PM Interpretation:Positive Performing Lab: Notes/Report: Positive Result: Pos REASON FOR VISIT poss flu Medications Medication SIG (Take, Route, Frequency, Duration) Notes Start Date End Date Status Pravastatin Sodium 40 MG 1 tab(s) orally once daily; Duration: 90 days Active Allopurinol 100 MG 1 tab(s) orally 2 ti mes a day; Duration: 90 days Active Cardizem CD 240 MG 1 cap(s) orally once a day; Duration: 90 days Active Digoxin 125 MCG 1 tab(s) orally once a day; Duration: 90 days Active Lisinopril-hydroCHLOROthiaz jarvis 20-12.5 MG 1 tab(s) orally once daily; Duration: 90 days Active CareTouch CPAP & BIPAP Hose 1 DIRECTED Active Indomethacin 50 MG 1 cap(s) orally 3 ti mes a day as needed; Duration: 30 day(s) Active Fenofibrate 160 MG 1 tab(s) orally once daily; Duration: 90 days Active Metoprolol Succinate ER 100 MG 1 tab(s) orally once a day; Duration: 90 days Active Warfarin Sodium 5 MG 1 tablet Orally Onc e a day; Duration: 30 day(s) Active Vitamin D3 125 MCG (5000 UT) 2 tab orally once a day 12/07/2010 Acti ve Ondansetron HCl 4 MG 1 tablet Orally thr ee times a day as needed 11/18/2023 Active Vital Signs Blood pressure systolic 128 mm Hg 03/13/20 24 Blood pressure diastolic 70 mm Hg 024 Heart Rate 88 /min 03/13/2024 Height 69.75 in 03/13/2024 Weight 268.0 lbs 03/13/2024 BMI 38.73 kg/m2 03/13/2024 Encounters Encounter Location Date Provider Diagnosis [facility] [address] [place] [address] [address] [place] [phone] 03/13/2024 Marcela Galeano COVID-19 U07. 1 Assessments Encounter Date Diagnosis (ICD Code) Assessment Notes Treatment Notes Treatment Clinical Notes Section Notes 03/13/2024 COVID-19 (ICD-10 - U07.1) fluids, rest, supportive measures for fever/symptom relief; will start vitamins D and C and Zinc; has cough med at home; discussed precautions for prevention of spread Plan Of Treatment Treatment Notes Assessment Notes COVID-19 fluids, rest, suppor tive measures for fever/symptom relief; will start vitamins D and C and Zinc; has cough med at home; discussed precautions for prevention of spread Next Appt Details Follow Up: prn, Reason: Provider Name:Grisel daigle, 08/20/2025 09:00:00 AM, [address] [facility] 36 [facility], [address], [place], [phone], Progress Notes * Lambert MANCIADOB:1955 (69 yo M)Acc No.[id number]:03/13/2024 Progress Notes Patient: Lambert NELSON Provider: GIORGI Carter :1955 A ge:68 Y S ex:Male Date:03/13/2024 Address:[facility] [address] [id number] Pcp:Grisel T Leon Subjective: * Chief Complaints: * 1 . Poss flu. * HPI: E NT/respiratory: 68 year old male presents with c/o sore throat. c/o cough?Pt sts he has a bad cough and sts he thinks it may be clearing up now but he is unsure. c/o nasal congestion. c/o Fever P t sts he had a fever for two and broke for a bit Tuesday morning, but sts thatSat night it came back worse along with chills and shakes. c/o rhinorrhea. c/o post nasal drainage. c/o Short of Breath. c/o headache. c/o chest congestion. c/o body aches. Denies : smoking. Pt sts his symptoms started Tuesday night and sts Tylenol and Nyquil to try and help, but sts it has not really not helped; decreased appetite. G astroenterology: c/o Nausea P t sts when his symptoms first started he started out with some nausea and diarrhea. c/o Diarrhea. * ROS: D ERMATOLOGY: no R stephen. [...] * Hospitalization/Major Diagno stic Procedure: A -Fib- [facility] 12/2015. * Family History: F ather: [...] detector use: yes. Marital Status: . 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 Past smoking status: no. Recreational drug use: no. Alcohol: Type: , Frequency:socially ,Years: , Determination:. * Medications: T beatriz Ondansetron HCl 4 MG Tablet 1 tablet Orally three times a day as needed , Taking Warfarin Sodium 5 MG Tablet 1 tablet Orally Once a day , Taking Vitamin D3 125 MCG (5000 UT) Tablet 2 tab orally once a day , Taking CareTouch CPAP & BIPAP Hose MACHINE AND SUPPLIES 1 DIRECTED , Taking Indomethacin 50 MG Capsule 1 cap(s) orally 3 times a day as needed , Taking Fenofibrate 160 MG Tablet 1 tab(s) orally once daily , Taking Metoprolol Succinate ER 100 MG Tablet Extended Release 24 Hour 1 tab(s) orally once a day , Taking Allopurinol 100 MG Tablet 1 tab(s) orally 2 times a day , Taking Cardizem CD 240 MG Capsule Extended Release 24 Hour 1 cap(s) orally once a day , Taking Digoxin 125 MCG Tablet 1 tab(s) orally once a day , Taking Lisinopril-hydroCHLOROthiazide 20-12.5 MG Tablet 1 tab(s) orally once daily , Taking Pravastatin Sodium 40 MG Tablet 1 tab(s) orally once daily , Discontinued Doxycycline Hyclate 100 MG Capsule 1 capsule Orally Once a day , Medication List reviewed and reconciled with the patient * Allergies: N .K.D.A. Objective: * Vitals: W t:268.0, Temp:97.7, BP:128/70, HR:88, Nurse:NIR, Ht: 69.75, BMI:38.73. * Examination: E NT/Respiratory: General Appearance: well nourished and hydrated, NAD, alert, active. E yes: sclera and conjunctiva clear. E ars: auditory canals normal bilaterally, tympanic membranes normal bilaterally. S inuses : non tender bilaterally. O ral cavity : erythema without exudate on pharynx. N josh : supple, no cervical lymphadenopathy. H eart : RRR. L ungs: C TAB A&P. A bdomen : BS present, soft, nontender, no hepatosplenomegaly. Assessment: * Assessment: 1. C OVID-19 - U07.1 (Primary) Plan: * Treatment: * Labs: * L ab: Covid test (in house) (Collection Date & Time - 03/13/2024) P ositive Value Reference Range R esult: Pos * Bianca Ramos 03/13/2024 12 :07:15 PM > , Provider reviewed results while patient in office.Marcela Galeano 03/13/2024 8:41:51 PM > ?Lab: Influenza Screen (in house) (Collection Date & Time - 03/13/2024) ?Negative* Value Reference Range r esults Neg * Bianca Ramos 03/13/2024 12 :07:49 PM > , Provider reviewed results while patient in office.GaleanoNatachaMarcela 03/13/2024 8:42:28 PM > * Procedure Codes: G 2211 Complex e/[place], [address] Flu Test- Nasal Swab, Modifiers: QW , 03418 COVID TEST IN HOUSE, Modifiers: QW * Follow Up: p rn * Images: Billing Information: * Visit Code: 44213 Office Visit, Est Pt., Level 3. * Procedure Codes: G2211 Complex e/[place]. [address] Flu Test- Nasal Swab. Modifiers: QW 66856 COVID TEST IN HOUSE. Modifiers: QW * Electronic signature of Charlotte noawk JORDIN Galeano on 02/27/2025 at 08:10 AM EST Sign off status: Pending * Provider: GIORGI Carter Date: Generated for Mark scott/Radha/Raheem on: 04/30/2024 08:10 AM EST History and Physical Notes * HPI (History of Present Illness) Category Sub-Category Detail Notes Category Not es ENT/respiratory sore throat Pt sts his s ymptoms started Tuesday night and sts Tylenol and Nyquil to try and help, but sts it has not really not helped; decreased appetite Short of Breath cough Pt sts he has a bad cough and sts he thinks it may be clearing up now but he is unsure Fever Pt sts he had a feve r for two and broke for a bit Tuesday morning, but sts thatSatur night it came back worse along with chills and shakes post nasal drainage headache chest congestion rhinorrhea nasal congestion smoking body aches Gastroenterology Diarrhea Nausea Pt sts when his symp toms first started he started out with some nausea and diarrhea Examination Category Sub-Category Detail Notes Category Not es ENT/Respiratory Oral cavity : erythema without exudate on pharynx Sinuses : non tender bilateral ly Ears: auditory canals norm al bilaterally, tympanic membranes normal bilaterally Neck : supple, no cervical lymphadenopathy Heart : RRR Lungs: CTAB A&P Abdomen : BS present, soft, no ntender, no hepatosplenomegaly General Appearance: well nourished and h ydrated, NAD, alert, active Eyes: sclera and conjuncti va clear
--- OUTSIDE RECORDS SUMMARY | 2024-08-17 05:30 | XMS_ITS ---
Author Organization [facility] Address [address] [place] [id number] Care Team Providers Care Project Development Coordinator Name Role Phone Grisel Scott Primary Care [...] 01:14:17 PM Interpretation:gluc 112 Performing Lab: Notes/Report: Test performed by [facility] [address] [place] [address] , [address], [place] [address] Joaquín Little MD, Recreation Adviser CLIA: [id number] Sodium 139 135-145 mmol/L Potassium 4.4 3.5-5.3 [...] Interpretation:Normal Performing Lab: Notes/Report: Test performed by [facility] [address] [place] [address] , [place] [address] Joaquín Little MD, Recreation Adviser CLIA: [id number] Thyroxine Free (free T4) 1.04 0.86-1.76 ng/dL P-Lipid Panel Reviewed date:08/20/2024 01:14:17 PM Interpretation:trigs 311. hdl 36, non-hdl 139 Performing Lab: Notes/Report: Test performed by [facility] [address] [place] [address] , [address], [place] [address] Joaquín Little MD, Recreation Adviser CLIA: [id number] Cholesterol 175 <200 mg/dL Triglycerides 311 <150 [...] Interpretation:Normal Performing Lab: Notes/Report: Test performed by [email or web address] , [address], [place] [address] Joaquín Little MD, Recreation Adviser CLIA: [id number] PSA 0.83 <4.00 ng/mL Please note this is an ultrasensitive PSA assay with a lower limit of detection of 0.014 ng/mL. This test is performed by the [employer] ECLIA methodology. Values obtained with different assay methods or kits cannot be directly compared. P-TSH Reviewed date:08/20/2024 01:14:17 PM Interpretation:Normal Performing Lab: Notes/Report: Test performed by [facility] , [address], [place] [address] Joaquín Little MD, Recreation Adviser CLIA: [id number] TSH 4.30 0.43-5.25 mU/L P-Microalbumin/Creatinine, R andom Urine Sample Reviewed date:08/20/2024 01:14:17 PM Interpretation:Normal Performing Lab: Notes/Report: Test performed by [email or web address] , [address], [place] [address] Joaquín Little MD, Recreation Adviser CLIA: [id number] Albumin/Creatinine Ratio, Urine 8 0-30 ug/m g Microalbumin, Urine, Random 1.5 Creatinine, Urine 195.3 P-Uric Acid Reviewed date:08/20/2024 01:14:17 PM Interpretation:Normal Performing Lab: Notes/Report: Test performed by [facility] [employer] [facility] [address] , [address], [place] [address] Joaquín Little MD, Recreation Adviser CLIA: [id number] Uric Acid 6.0 3.4-8.0 mg/dL P-Vitamin D 25-Hydroxy Reviewed date:08/20/2024 01:14:17 PM Interpretation:38 Performing Lab: Notes/Report: Test performed by [facility] [address] [facility] , [address], [place] [address] Joaquín Little MD, Recreation Adviser CLIA: [id number] Vitamin D 25-Hydroxy 38.0 30.0-100.0 ng/mL Interpretation [...] DAILY NEEDED; Duration: 30 Active Vital Signs Blood pressure systolic 134 mm Hg 08/18/19 25 Blood pressure diastolic 72 mm Hg 025 Heart Rate 60 /min 08/17/2024 Height 69.75 in 08/17/2024 Weight 271.0 lbs 08/17/2024 BMI 39.16 kg/m2 08/17/2024 Encounters Encounter Location Date Provider Diagnosis Ernesto [address] [facility] [address] [place] [id number] 08/17/2024 Grisel Scott Essential hypertensi on I10 [...] 6 Months, Reason: Provider Name:Grisel Reid ry, 08/20/2025 09:00:00 AM, [address], [address], [place], [place], [id number], Progress Notes * Lambert MNACIADOB:1955 (69 yo M)Acc No.[id number]:08/17/2024 Progress Notes Patient: Lambert NELSON Provider: Vera Scott M.D. :1955 A ge:68 Y S ex:Male Date:08/17/2024 Address:[address] [place] [address] [facility] [id number] Subjective: * Chief Complaints: * 1 . [...] * Hospitalization/Major Diagno stic Procedure: A -Fib- [facility] 12/2015. * Family History: F [...] detector use: yes. Marital Status: . 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 Recreational drug [...] G 2211 Complex e/[place], [address] GLUCOSE TEST, 79173 GLYCATED HEMOGLOBIN TEST, Modifiers: QW , G8950 PREHTN/HTN BP DOC INDCD F/U DOC, G8752 MOST RECENT SYSTOLIC BP < 140MM HG, G8754 MOST RECENT DIASTOLIC BP < 90MM HG, 3044F HG A1C LEVEL LT 7.0%, 1036F TOBACCO NON-USER * Follow Up: 6 Months * Images: Billing Information: * Visit Code: 94874 Office Visit, Est Pt., Level 4. * Procedure Codes: G2211 Complex e/[place]. [address] GLUCOSE TEST. 24633 GLYCATED HEMOGLOBIN TEST. Modifiers: QW G8950 PREHTN/HTN [...] 08/17/2024 Generated for Mark scott/Radha/Deepsmitting on: 1 04/30/2024 08:10 AM EST History [...]
--- OUTSIDE RECORDS SUMMARY | 2025-02-18 04:15 | XMS_ITS ---
[facility] [place] [facility] [address] [place] [id number] Care Team Providers Care [employer] Black Belt Name Role Phone Grisel Scott Primary Care Provider GRISEL SCOTT Unavailable Unavailable Allergies No Known Allergies Results Component Value Reference Range Notes Glucose (In-House) Reviewed date:02/20/2025 03:04:13 PM Interpretation:123 Performing Lab: Notes/Report: 123 blood glucose 123 74 - 106 mg/dL Glycohemoglobin A1c (in hous e) Reviewed date:02/20/2025 03:04:13 PM Interpretation:6.1 Performing Lab: Notes/Report: 6.1 glycohemoglobin 6.1% 5 - 6.5 % P-Comprehensive Metabolic Pa nasima (CMP) Reviewed date:02/19/2025 10:30:28 AM Interpretation:Glu 141 Performing Lab: Notes/Report: Test performed by [facility] [address] [place] [address] , [address], [place] [address] Zi Bailey MD, PhD, FCAP, Hydro Technician CLIA: [id number] Sodium 140 135-145 mmol/L Potassium 4.3 3.5-5.3 mmol/L Chloride 103 97-108 mmol/L CO2 24 20-32 mmol/L Glucose 141 65-99 mg/dL BUN 19 8-23 mg/dL Creatinine 1.18 0.70-1.30 mg/dL Calcium 9.7 8.6-10.4 mg/dL eGFR by Creatinine 66 >59 mL/min/1.73m2 Protein 7.3 6.0-8.3 g/dL Albumin 4.4 3.5-5.3 g/dL Alkaline Phosphatase 46 44-138 IU/L ALT (SGPT) 25 <5-55 IU/L AST (SGOT) 42 <5-46 IU/L Bilirubin, Total 0.3 <0.2-1.2 mg/dL A/G Ratio 1.5 1.1-2.5 P-Lipid Panel Reviewed date:02/19/2025 10:30:28 AM Interpretation:Trigs 272, Non-HDL 147 Performing Lab: Notes/Report: Test performed by [facility] [address] [place] [address] , [address], [place] [address] Zi Bailey MD, PhD, [facility], Hydro Technician CLIA: [id number] Lipid Panel Footnote See Below *Based on optimal reference values. Please refer to the DOS for additional information regarding diagnostic lipid reference ranges, patient management based on the recently updated lipid guidelines ([place] [employer]/[place] [employer] Task Force on Clinical Practice Guidelines (2018), and pediatric diagnostic lipid reference values (<18 years old). Total Cholesterol 188 <200 mg/dL Triglycerides 272 <150 mg/dL HDL Cholesterol 41 >40 mg/dL Total Cholesterol / HDL Ratio* 4.59 <4.99 Rati o Non-HDL Cholesterol 147 <130 mg/dL LDL Cholesterol (Calculation) 93 <100 mg/dL LDL / HDL Ratio* 2.26 <2.49 Ratio LDL Cholesterol Patient History Test Date: 08/17/2024 LDL Results: 77 Units: mg/dL % Change: - Test Date: 02/18/2025 LDL Results: 93 Units: mg/dL % Change: +20% P-Vitamin D 25-Hydroxy Reviewed date:02/19/2025 10:30:28 AM Interpretation:27.9 Performing Lab: Notes/Report: Test performed by [facility] [address] [place] [address] , [address]jil Bailey MD, PhD, [facility], Hydro Technician CLIA: [id number] Vitamin D 25-Hydroxy 27.9 30.0-100.0 ng/mL Interpretation of Vitamin D 25 OH: < 20 ng/mL - Deficiency 20 - 29 ng/mL - Insufficiency 30 - 100 ng/mL - Sufficiency > 100 ng/mL - Super-therapeutic- toxicity may occur above this level. Clinical correlation required. REASON FOR VISIT 6 months Medications Medication SIG (Take, Route, Frequency, Duration) Notes Start Date End Date Status Cardizem CD 240 MG 1 cap(s) orally once a day; Duration: 90 days Active Lisinopril-hydroCHLOROthi azide 20-12.5 MG 1 tab(s) orally twice a day; Duration: 90 days Active Digoxin 125 MCG 1 tab(s) orally once a day; Duration: 90 days Active Pravastatin Sodium 40 MG 1 tab(s) orally once daily; Duration: 90 days Active Warfarin Sodium 5 MG 1 tablet Orally Onc e a day; Duration: 30 day(s) Active Vitamin D3 125 MCG (5000 UT) 2 tab orally once a day 12/07/2010 Acti ve CareTouch CPAP & BIPAP Hose 1 DIRECTED Not-Taking Metoprolol Succinate ER 100 MG 1 tab(s) orally once a day; Duration: 90 days Active Fenofibrate 160 MG 1 tab(s) orally once daily; Duration: 90 days Active Indomethacin 50 mg 1 capsule orally 3 times a day As needed Active Allopurinol 100 MG 1 tab(s) orally 2 ti mes a day; Duration: 90 days Active Vital Signs Blood pressure systolic 130 mm Hg 02/19/20 25 Blood pressure diastolic 74 mm Hg 025 Heart Rate 65 /min 02/18/2025 Height 69.75 in 02/18/2025 Weight 273.8 lbs 02/18/2025 BMI 39.56 kg/m2 02/18/2025 Encounters Encounter Location Date Provider Diagnosis Ernesto [address] [place], [place] [id number] 02/18/2025 Grisel Scott Essential hypertensi on I10 ; Hyperlipidemia, unspecified hyperlipidemia type E78.5 ; Hypertriglyceridemia E78.1 ; IFG (impaired fasting glucose) R73.01 ; Vitamin D deficiency E55.9 and Gout, unspecified cause, unspecified chronicity, unspecified site M10.9 Assessments Encounter Date Diagnosis (ICD Code) Assessment Notes Treatment Notes Treatment Clinical Notes Section Notes 02/18/2025 Essential hypertensi on (ICD-10 - I10) 02/18/2025 Hyperlipidemia, unspecified hyperlipidemia type (ICD-10 - E78.5) 02/18/2025 Hypertriglyceridemia (ICD-10 - E78.1) 02/18/2025 IFG (impaired fastin g glucose) (ICD-10 - R73.01) 02/18/2025 Vitamin D deficiency (ICD-10 - E55.9) 02/18/2025 Gout, unspecified ca use, unspecified chronicity, unspecified site (ICD-10 - M10.9) Plan Of Treatment Medication Medication Name Sig Start Date Stop Date Notes Fenofibrate 160 MG 1 tab(s) orally once daily; Duration: 90 days Indomethacin 50 mg 1 capsule orally 3 times a day Allopurinol 100 MG 1 tab(s) orally 2 ti mes a day; Duration: 90 days Next Appt Details Follow Up: 6 Months fasting, Reason: Provider Name:Grisel daigle, 08/20/2025 09:00:00 AM, [address], [address], [place], [id number], Progress Notes * Misty MANCIAB:1955 (69 yo M)Acc No.[id number]:02/18/2025 Progress Notes Patient: Lambert NELSON Provider: Vera Scott M.D. :1955 A ge:69 Y S ex:Male Date:02/18/2025 Address:[place], [id number] Subjective: * Chief Complaints: * 1 . 6 months. * HPI: C ardiology: 69 year old male presents with c/o Blood Pressure Elevated P t here for 6 mo checkup on hypertension. Pt states he is doing well and does not have any concerns at this time. c/o Hyperlipidemia P t is fasting today. * Medical History: H ypertension, Hyperlipidemia, Gout, Rt Shoulder Pain- treated by Dr. Scherer, Vitamin D deficiency, Colon polyps, Atrial fibrillation, Dx: 2015, Impaired fasting glucose. * Surgical History: C olonoscopy 2007, 2015, CardioVersion x 2 2015, Total Lt Knee Replacement 06/2020. * Hospitalization/Major Diagno stic Procedure: A -Fib- [facility] 12/2015. * Family History: F ather: . M other: alive. S iblings: cardiac arrhythmia- one son .?Children: cardiac arrhythmia- one son . 2 brother(s) , 2 sister(s) - healthy. 2 son(s) , 1 daughter(s) . . * Social History: C URRENT TOBACCO USE: No S moking Status: Patient does NOT smoke, Second hand smoke exposure: No. C affeine: yes, frequency:. Exercise: yes. Home smoke detector use: yes. Marital Status: . 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 Past smoking status: no. Recreational drug use: no. Alcohol: Type: , Frequency:socially ,Years: , Determination:. * Medications: T aking Warfarin Sodium 5 MG Tablet 1 tablet Orally Once a day , Taking Vitamin D3 125 MCG (5000 UT) Tablet 2 tab orally once a day , Taking Fenofibrate [...] cap(s) orally once a day , Taking Lisinopril-hydroCHLOROthiazide 20-12.5 MG Tablet 1 tab(s) orally twice a day , Taking Digoxin 125 MCG Tablet 1 tab(s) orally once a day , Taking Pravastatin Sodium 40 MG Tablet 1 tab(s) orally once daily , Taking Indomethacin 50 mg Capsule 1 capsule as needed orally 3 times a day , Not-Taking CareTouch CPAP & BIPAP Hose MACHINE AND SUPPLIES 1 DIRECTED , Discontinued Ondansetron HCl 4 MG Tablet 1 tablet Orally three times a day as needed , Discontinued Icosapent Ethyl 1 GM Capsule 2 capsules with meals Orally Twice a day , Notes to Pharmacist: Please dispense generic., Medication List reviewed and reconciled with the patient * Allergies: N .K.D.A. Objective: * Vitals: W t: 273.8, Temp: 98.0, BP: 130/74, HR: 65, Nurse: sunita, Ht: 69.75, BMI:39.56. * Examination: C ardiology: General Appearance: p [...] (impaired fasting glucose) - R73.01 5 . V itamin D deficiency - E55.9 6 . G out, unspecified cause, unspecified chronicity, unspecified site - M10.9? Plan: * Treatment: Value Reference Range A /G Ratio 1.5 1.1-2.5 - * A lbumin 4.4 3.5-5.3 - g/dL * A lkaline Phosphatase 46 44-138 - IU/L * A LT (SGPT) 25 <5-55 - IU/L * A ST (SGOT) 42 <5-46 - IU/L * B ilirubin, Total 0.3 <0.2-1.2 - mg/dL * B UN 19 8-23 - mg/dL * C alcium 9.7 8.6-10.4 - mg/dL * C hloride 103 97-108 - mmol/L * C O2 24 20-32 - mmol/L * C reatinine 1.18 0.70-1.30 - mg/dL * G lucose 141 H 65-99 - mg/dL * P otassium 4.3 3.5-5.3 - mmol/L * S odium 140 135-145 - mmol/L * P rotein 7.3 6.0-8.3 - g/dL * e GFR by Creatinine 66 >59 - mL/min/1.73m2 * Tita Oliver 02/19/2025 10: 30:06 AM EST > See phone encounter 2.?Hyperlipidemia, unspecified hyperlipidemia type?LAB: P-Comprehensive Metabolic Panel (CMP) (Collection Date & Time - 02/18/2025 08:43 AM)?Glu 141* Value Reference Range A /G Ratio 1.5 1.1-2.5 - * A lbumin 4.4 3.5-5.3 - g/dL * A lkaline Phosphatase 46 44-138 - IU/L * A LT (SGPT) 25 <5-55 - IU/L * A ST (SGOT) 42 <5-46 - IU/L * B ilirubin, Total 0.3 <0.2-1.2 - mg/dL * B UN 19 8-23 - mg/dL * C alcium 9.7 8.6-10.4 - mg/dL * C hloride 103 97-108 - mmol/L * C O2 24 20-32 - mmol/L * C reatinine 1.18 0.70-1.30 - mg/dL * G lucose 141 H 65-99 - mg/dL * P otassium 4.3 3.5-5.3 - mmol/L * S odium 140 135-145 - mmol/L * P rotein 7.3 6.0-8.3 - g/dL * e GFR by Creatinine 66 >59 - mL/min/1.73m2 * Tita Oliver 02/19/2025 10: 30:06 AM EST > See phone encounter ?LAB: P-Lipid Panel (Collection Date & Time - 02/18/2025 08:43 AM)?Trigs 272, Non-HDL 147* Value Reference Range C holesterol / HDL Ratio 4.59 <4.99 - Ratio * C holesterol 188 <200 - mg/dL * H DL Cholesterol 41 >40 - mg/dL * L DL Cholesterol (Calculation) 93 <100 - mg/d L * L DL/HDL Ratio 2.26 <2.49 - Ratio * N on-HDL Cholesterol 147 H <130 - mg/dL * T riglycerides 272 H <150 - mg/dL * L ipid Panel Footnote See Below - * Tita Oliver 02/19/2025 10: 30:06 AM EST > See phone encounter 3.?Hypertriglyceridemia? Refill Fenofibrate Tablet, 160 MG, 1 tab(s), orally, once daily, 90 days, 90, Refills 1.?LAB: P-Comprehensive Metabolic Panel (CMP) (Collection Date & Time - 02/18/2025 08:43 AM)?Glu 141* Value Reference Range A /G Ratio 1.5 1.1-2.5 - * A lbumin 4.4 3.5-5.3 - g/dL * A lkaline Phosphatase 46 44-138 - IU/L * A LT (SGPT) 25 <5-55 - IU/L * A ST (SGOT) 42 <5-46 - IU/L * B ilirubin, Total 0.3 <0.2-1.2 - mg/dL * B UN 19 8-23 - mg/dL * C alcium 9.7 8.6-10.4 - mg/dL * C hloride 103 97-108 - mmol/L * C O2 24 20-32 - mmol/L * C reatinine 1.18 0.70-1.30 - mg/dL * G lucose 141 H 65-99 - mg/dL * P otassium 4.3 3.5-5.3 - mmol/L * S odium 140 135-145 - mmol/L * P rotein 7.3 6.0-8.3 - g/dL * e GFR by Creatinine 66 >59 - mL/min/1.73m2 * Tita Oliver 02/19/2025 10: 30:06 AM EST > See phone encounter ?LAB: P-Lipid Panel (Collection Date & Time - 02/18/2025 08:43 AM)?Trigs 272, Non-HDL 147* Value Reference Range C holesterol / HDL Ratio 4.59 <4.99 - Ratio * C holesterol 188 <200 - mg/dL * H DL Cholesterol 41 >40 - mg/dL * L DL Cholesterol (Calculation) 93 <100 - mg/d L * L DL/HDL Ratio 2.26 <2.49 - Ratio * N on-HDL Cholesterol 147 H <130 - mg/dL * T riglycerides 272 H <150 - mg/dL * L ipid Panel Footnote See Below - * MelodyTita 02/19/2025 10: 30:06 AM EST > See phone encounter 4.?IFG (impaired fasting glucose)?LAB: Glucose (In-House) (Collection Date & Time - 02/18/2025)?123* Value Reference Range b lood glucose 123 74 - 106 mg/dL * Shana Nogueira 02/20/2025 01:24 :37 PM EST > Tita Oliver 02/20/2025 03:04:05 PM EST > See phone encounter ?LAB: Glycohemoglobin A1c (in house) (Collection Date & Time - 02/18/2025)? 6.1* Value Reference Range g lycohemoglobin 6.1% 5 - 6.5 % * Shana Nogueira 02/20/2025 01:24 :00 PM EST > Tita Oliver 02/20/2025 03:04:05 PM EST > See phone encounter 5.?Vitamin D deficiency?LAB: P-Vitamin D 25-Hydroxy (Collection Date & Time - 02/18/2025 08:43 AM)? 27.9* Value Reference Range V itamin D 25-Hydroxy 27.9 L 30.0-100.0 - ng/mL * MelodyTita 02/19/2025 10: 30:06 AM EST > See phone encounter 6.?Gout, unspecified cause, unspecified chronicity, unspecified site? Refill Indomethacin Capsule, 50 mg, 1 capsule, orally, 3 times a day As needed, 30, Refills 1;?Refill Allopurinol Tablet, 100 MG, 1 tab(s), orally, 2 times a day, 90 days, 180, Refills 1.? * Procedure Codes: G 2211 Complex e/[place], [address] GLUCOSE TEST, 13442 GLYCATED HEMOGLOBIN TEST, Modifiers: QW , 3044F HG A1C LEVEL LT 7.0%, G8950 PREHTN/HTN BP DOC INDCD F/U DOC, G8752 MOST RECENT SYSTOLIC BP < 140MM HG, G8754 MOST RECENT DIASTOLIC BP < 90MM HG, 3075F SYST BP GE 130 - 139MM HG, 3078F DIAST BP < 80 MM HG * Follow Up: 6 Months fasting * Images: Billing Information: * Visit Code: 46671 Office Visit, Est Pt., Level 4. * Procedure Codes: G2211 Complex e/[place]. [address] GLUCOSE TEST. 19401 GLYCATED HEMOGLOBIN TEST. Modifiers: QW 3044F HG A1C LEVEL LT 7.0%. G8950 PREHTN/HTN BP DOC INDCD F/U DOC. G8752 MOST RECENT SYSTOLIC BP < 140MM HG. G8754 MOST RECENT DIASTOLIC BP < 90MM HG. 3075F SYST BP GE 130 - 139MM HG. 3078F DIAST BP < 80 MM HG. * Electronic signature of Zeenat Scott MD on 02/27/2025 at 08:11 AM EST Sign off status: Pending * Provider: Vera Scott M.D. Date: 04/21/2024 Generated for Makr scott/Radha/Geraitting on: 04/30/2024 08:11 AM EST History and Physical Notes * HPI (History of Present Illness) Category Sub-Category Detail Notes Category Not es Cardiology Blood Pressure Elevated Pt here for 6 mo checkup on hypertension. Pt states he is doing well and does not have any concerns at this time Hyperlipidemia Pt is fasting today Examination Category Sub-Category Detail Notes Category Not es Cardiology Lungs: clear, no rales or wheezes Heart sounds: RRR Extremities: no leg edema Peripheral pulses: 2 plus bilateral General Appearance: pleasant, NAD
--- OUTSIDE RECORDS SUMMARY | 2025-02-27 08:11 | XMS_ITS | Patient Health Record ---
[facility] Organization [facility] Address [address] [place] [id number] Care Team Providers Care Fountain Dispenser Name Role Phone Grisel Scott Primary Care Provider GRISEL SCOTT Unavailable Unavailable Marcela Galeano Unavailable [phone] Allergies No Known Allergies Results Component Value [...] 112 Performing Lab: Notes/Report: Test performed by [facility] [address] [place] [address] , [address], [place] [address] Joaquín Little MD, Janitorial Assistant CLIA: [id number] Sodium 139 135-145 mmol/L Potassium 4.4 3.5-5.3 [...] Interpretation:Normal Performing Lab: Notes/Report: Test performed by [facility] [address] [place] [address] , [address], [place] [address] Joaquín Little MD, Janitorial Assistant CLIA: [id number] Thyroxine Free (free T4) 1.04 0.86-1.76 ng/dL P-Lipid Panel Reviewed date:08/20/2024 01:14:17 PM Interpretation:trigs 311. hdl 36, non-hdl 139 Performing Lab: Notes/Report: Test performed by [facility] [address] [place] [address] , [address], [place] [address] Joaquín Little MD, Janitorial Assistant CLIA: [id number] Cholesterol 175 <200 mg/dL Triglycerides 311 <150 [...] Interpretation:Normal Performing Lab: Notes/Report: Test performed by [facility] , [address], [place] [address] Joaquín Little MD, Janitorial Assistant CLIA: [id number] PSA 0.83 <4.00 ng/mL Please note this is an ultrasensitive PSA assay with a lower limit of detection of 0.014 ng/mL. This test is performed by the [employer] ECLIA methodology. Values obtained with different assay methods or kits cannot be directly compared. P-TSH Reviewed date:08/20/2024 01:14:17 PM Interpretation:Normal Performing Lab: Notes/Report: Test performed by [facility] [address] , [address], [place] [address] Joaquín Little MD, Janitorial Assistant CLIA: [id number] TSH 4.30 0.43-5.25 mU/L P-Microalbumin/Creatinine, R andom Urine Sample Reviewed date:08/20/2024 01:14:17 PM Interpretation:Normal Performing Lab: Notes/Report: Test performed by [facility] , [address], [place] [address] Joaquín Little MD, Janitorial Assistant CLIA: [id number] Albumin/Creatinine Ratio, Urine 8 0-30 ug/mg Microalbumin, Urine, Random 1.5 Creatinine, Urine 195.3 P-Uric Acid Reviewed date:08/20/2024 01:14:17 PM Interpretation:Normal Performing Lab: Notes/Report: Test performed by [facility] [address] [place] [address] , [address], [place] [address] Joaquín Little MD, Janitorial Assistant CLIA: [id number] Uric Acid 6.0 3.4-8.0 mg/dL P-Vitamin D 25-Hydroxy Reviewed date:08/20/2024 01:14:17 PM Interpretation:38 Performing Lab: Notes/Report: Test performed by [facility] [address] [place] [address] , [address], [place] [address] Joaquín Little MD, Janitorial Assistant CLIA: [id number] Vitamin D 25-Hydroxy 38.0 30.0-100.0 ng/mL Interpretation of Vitamin D 25 OH: < 20 ng/mL - Deficiency 20 - 29 ng/mL - Insufficiency 30 - 100 ng/mL - Sufficiency > 100 ng/mL - Super-therapeutic- toxicity may occur above this level. Clinical correlation required. P-Vitamin D 25-Hydroxy Reviewed date:02/19/2025 10:30:28 AM Interpretation:27.9 Performing Lab: Notes/Report: Test performed by [facility] [address] [place] [address] , [address], [place] [id number] Zi Bailey MD, PhD, [facility], Janitorial Assistant CLIA: [id number] Vitamin D 25-Hydroxy 27.9 30.0-100.0 ng/mL Interpretation of Vitamin D 25 OH: < 20 ng/mL - Deficiency 20 - 29 ng/mL - Insufficiency 30 - 100 ng/mL - Sufficiency > 100 ng/mL - Super-therapeutic- toxicity may occur above this level. Clinical correlation required. P-Lipid Panel Reviewed date:02/19/2025 10:30:28 AM Interpretation:Trigs 272, Non-HDL 147 Performing Lab: Notes/Report: Test performed by [facility] [address] [place] [address] , [address], [place] [address] Zi Bailey MD, PhD, FCAP, Janitorial Assistant CLIA: [id number] Lipid Panel Footnote See Below *Based on optimal reference values. Please refer to the DOS for additional information regarding diagnostic lipid reference ranges, patient management based on the recently updated lipid guidelines ([place] [employer]/[place] [employer] Task Force on Clinical Practice Guidelines (2018), and pediatric diagnostic lipid reference values (<18 years old). Total Cholesterol 188 <200 mg/dL Triglycerides 272 <150 mg/dL HDL Cholesterol 41 >40 mg/dL Total Cholesterol / HDL Ratio* 4.59 <4.99 Ratio Non-HDL Cholesterol 147 <130 mg/dL LDL Cholesterol (Calculation) 93 <100 mg/dL LDL / HDL Ratio* 2.26 <2.49 Ratio LDL Cholesterol Patient History Test Date: 08/17/2024 LDL Results: 77 Units: mg/dL % Change: - Test Date: 02/18/2025 LDL Results: 93 Units: mg/dL % Change: +20% P-Comprehensive Metabolic Pa nasima (CMP) Reviewed date:02/19/2025 10:30:28 AM Interpretation:Glu 141 Performing Lab: Notes/Report: Test performed by [facility], [address] , [address], [place] [address] Nefjil Bailey MD, PhD, FCAP, Janitorial Assistant CLIA: [id number] Sodium 140 135-145 mmol/L Potassium 4.3 3.5-5.3 [...] 0.3 <0.2-1.2 mg/dL A/G Ratio 1.5 1.1-2.5 Glycohemoglobin A1c (in hous e) Reviewed date:02/20/2025 03:04:13 PM Interpretation:6.1 Performing Lab: Notes/Report: 6.1 glycohemoglobin 6.1% 5 - 6.5 % Glucose (In-House) Reviewed date:02/20/2025 03:04:13 PM Interpretation:123 Performing Lab: Notes/Report: 123 blood glucose 123 74 - 106 mg/dL Covid test (in house) Reviewed date:03/13/2024 08:42:09 PM Interpretation:Positive Performing Lab: Notes/Report: Positive Result: Pos Influenza Screen (in house) Reviewed date:03/13/2024 08:42:28 PM Interpretation:Negative Performing Lab: Notes/Report: Negative results Neg Medications Medication SIG (Take, Route, Frequency, Duration) [...] orally once daily; Duration: 90 days Active Fenofibrate 160 MG 1 tab(s) orally once daily; Duration: 90 days Active Indomethacin 50 mg 1 capsule orally 3 times a day As needed Active Warfarin Sodium 5 MG 1 tablet Orally Onc e a day; Duration: 30 day(s) Active Allopurinol 100 MG 1 tab(s) orally 2 ti mes a day; Duration: 90 days Active Vitamin [...] Status Risk Notes Problem Vitamin D deficiency (30771685) Vitamin D deficiency (E55.9) Active confirmed Problem Essential hypertension (44787527) Essential hypertension (I10) Active confirmed Problem Hypertriglyceridemia (844327594) Hypertriglyceridemia (E78.1) Active confirmed Problem Arthropathy of lumba r facet joint (275647453) Lumbar facet arthropathy (M47.816) Active confirmed Problem Degeneration of lumbar intervertebral disc (88574916) Lumbar degenerative disc disease (M51.36) Active confirmed Problem Acquired hypothyroidism (121823977) Acquired hypothyroidism (E03.9) Active confirmed Problem Displacement of lumbar intervertebral disc without myelopathy (52499663) Bulging lumbar disc (M51.26) Active confirmed Problem Gout (23532969) Gout, unspecifie d cause, unspecified chronicity, unspecified site (M10.9) Active confirmed Problem History of nutritional deficiency (24335887774123) History of vitamin D deficiency (Z86.39) Active confirmed Problem Atrial fibrillation (62857517) Atrial fibrillation, unspecified type (I48.91) Active confirmed Problem Osteoarthritis of knee (317554898) Primary osteoarthritis of left knee (M17.12) Active confirmed Problem Hyperlipidaemia (75115691) Hyperlipidemia, unspecified hyperlipidemia type (E78.5) Active confirmed Problem Sciatica (03701664) Acute left-s ided low back pain with left-sided sciatica (M54.42) Active confirmed Problem Impaired fasting glycaemia (011962351) IFG (impaired fasting glucose) (R73.01) Active confirmed Problem Arthritis of left knee (7783146332943831) Arthritis of left knee (M17.12) Active confirmed Vital Signs Heart Rate 65 /min 02/18/2025 Blood pressure diastolic 74 mm Hg 02/18/2025 Height 69.75 in 02/18/2025 Blood pressure systolic 130 mm Hg 02/18/2025 Weight 273.8 lbs 02/18/2025 BMI 39.56 kg/m2 02/18/2025 Encounters Encounter Location Date Provider Diagnosis [facility] [address] [place] [id number] 03/13/2024 Marcela Galeano COVID-19 U07.1 [facility] [address] [place] [id number] 08/17/2024 Grisel Rockland Essential hypertensi on I10 ; Hyperlipidemia, unspecified hyperlipidemia type E78.5 ; Hypertriglyceridemia E78.1 ; IFG (impaired fasting glucose) R73.01 ; Acquired hypothyroidism E03.9 ; Vitamin D deficiency E55.9 ; Prostate cancer screening Z12.5 ; Gout, unspecified cause, unspecified chronicity, unspecified site M10.9 and Atrial fibrillation, unspecified type I48.91 [facility] [address] [place] [id number] 02/18/2025 Grisel [place]land Essential hypertensi on I10 ; Hyperlipidemia, unspecified hyperlipidemia type E78.5 ; Hypertriglyceridemia E78.1 ; IFG (impaired fasting glucose) R73.01 ; Vitamin D deficiency E55.9 and Gout, unspecified cause, unspecified chronicity, unspecified site M10.9 [facility] [address] [place], [place] [id number] 03/29/2024 Grisel Rockland Gout, unspecified ca use, unspecified chronicity, unspecified site M10.9 [facility] [address] [place], [place] [id number] 08/20/2024 Grisel Rockland [facility] [address] [place], [place] [id number] 08/27/2024 Grisel Rockland [facility] [address] [place], [place] [id number] 01/04/2025 Grisel Rockland [facility] [address] [place], [place] [id number] 02/19/2025 Grisel [place]land Assessments Encounter Date Diagnosis (ICD Code) Assessment [...] unspecified hyperlipidemia type (ICD-10 - E78.5) 02/18/2025 Essential hypertensi on (ICD-10 - I10) 02/18/2025 Hyperlipidemia, unspecified hyperlipidemia type (ICD-10 - E78.5) 02/18/2025 Hypertriglyceridemia (ICD-10 - E78.1) 08/17/2024 Hypertriglyceridemia (ICD-10 - E78.1) 08/17/2024 IFG (impaired fastin g glucose) (ICD-10 - R73.01) 02/18/2025 IFG (impaired fastin g glucose) (ICD-10 - R73.01) 02/18/2025 Vitamin D deficiency (ICD-10 - E55.9) 08/17/2024 Acquired hypothyroid ism (ICD-10 - E03.9) 08/17/2024 Vitamin D deficiency (ICD-10 - E55.9) 02/18/2025 Gout, unspecified cause, unspecified chronicity, unspecified site (ICD-10 - M10.9) 08/17/2024 Prostate cancer screening (ICD-10 - Z12.5) 08/17/2024 Gout, unspecified cause, unspecified chronicity, unspecified site (ICD-10 - M10.9) 08/17/2024 Atrial fibrillation, unspecified type (ICD-10 - I48.91) Plan Of Treatment Next Appt Details Provider Name:Grisel Reid ry, 08/20/2025 09:00:00 AM, [address], [address], [place], [id number], Insurance Providers Payer Name Payer Address Payer Phone Subscriber Number Group Number Insured Name Patient Relationship to Insured Coverage Start Date Coverage End Date MEDICARE PART B [address] [address] [place] [id number] [phone] [id number] Lambert Mancia Self - patient is the insured [employer] INSURANCE [address] [place] [id number] [phone] [id number] Lambert Mancia Self - patient is the [...]
--- OUTSIDE RECORDS SUMMARY | 2025-02-27 08:11 | XMS_ITS | Clinical Summary ---
Author Organization Healthcare Address [address] [id number] Care Team Providers Care Patient Safety Officer Name Role Phone Feliciano Scott MD Primary Care Provider [phone] Social History Tobacco Use Types Packs/Day Years [...] 2 - PCV20 or PCV21) 12/10/2020 12/11/2019 [id number] Vaccine (2 - 20 25-26 season) 2024 05/24/2020 [facility]-Influenza Vaccine (#1) 2024 12/11/2019 [facility]-DTaP,Tdap,and Td Vaccine s (2 - Td or Tdap) 09/24/2028 09/24/2018 [facility]-RSV Vaccine: 60+ Years o r (1 - 1-dose 75+ series) 2028 HPV Vaccines (No Doses Required) Completed [facility]-HIB Vaccines Aged Out No longer e [...] patient's age to complete this topic Insurance MEDICARE Care Teams Patient Safety Officer Relationship Specialty Start Date End Date Feliciano Scott MD [address] [facility] [address] [place] [address] PCP - General 07/25/20
--- OUTSIDE RECORDS SUMMARY | 2025-02-27 08:11 | XMS_ITS | Clinical Summary ---
Author Organization [facility] [place] Address [address] [place] [address] Phone Care Team Providers Care Jig And Fixture Maker Name Role Phone Feliciano Scott MD Primary Care Provider [phone] Kody Shukla MD Unavailable [phone] Allergies No known active allergies Medications allopurinol [...] on file Sexual Orientation Not on file Last Filed Vital Signs Vital Sign Reading [...] FIT 1998 Sigmoidoscopy 1998 Virtual Colonography 1998 RSV or 60+ (1 - Ris k 50-74 years 1-dose series) 10/20/2003 Zoster (1 of 2) 10/20/2003 COVID-19 Vaccine ( - 2024-2 6 season) 2024 Influenza Vaccine (#1) 2024 Hepatitis B Vaccine Aged Out No longe r eligible based on patient's age to complete this topic Meningococcal B Vaccine Aged Out No l onger eligible based on patient's age to complete this topic Insurance [id number] Kaylee Bronson [place] [id number] [facility] CHO[facility] PL[facility] [id number] Member Subscriber Plan / Payer (Ef fective 2016-Present) Name:Lambert Mancia Relation to Subscriber:Self Name:Lambert Mancia Payer ID:[id number] (NA) Type:Not on file Address: [place] [phone] Care Teams Jig And Fixture Maker Relationship Specialty Start Date End Date Feliciano Scott MD [address] [place] [id number] PCP - General Family Medicine 10/07/16 Kody Shukla MD [address] [place] [address] [address] [place], [place] [id number] Consulting Physician Internal Medicine - Clinical Cardiac Electrophysiology 10/07/16
[2025-02-27 14:21] LABS: PHA INR Fingerstick 2.2 (0.9-1.1)
== END 2025-02-27 14:34 ==
LOC: ACC 08:08
PROVIDERS: PCP Family Medicine; Visit Provider Physician Assistant
DX: I48.91 Unspecified atrial fibrillation (principal); Z79.01 Long term (current) use of anticoagulants
CPT/HCPCS: 85610; 99211; G0463